=== PATIENT | male | born 1960 | race Hispanic/Latino ===

== ENCOUNTER → 2021-06-19 | Outpatient (CLI) | payer MEDICARE ==
[~2021-06-19] MED LIST: GLIP10TA9 PO
[2021-06-19 13:25] LABS: CREATININE 0.7 mg/dL (0.5-1.5); POTASSIUM 4.2 mmol/L (3.5-5.1)
== END | disposition home or self-care (01) ==
LOC: LAB 12:19
PROVIDERS: ATTEND Internal Medicine Cardiovascular Disease
DX: I10 Essential (primary) hypertension (principal)
CPT/HCPCS: 36415; 80048

== ENCOUNTER → 2021-06-21 | Outpatient (CLI) | payer MEDICARE ==
[~2021-06-21] MED LIST changes: +IOHEXOL-350 50ML VIAL IV ONE
== END | disposition home or self-care (01) ==
LOC: RAH 08:24
PROVIDERS: ATTEND Internal Medicine Cardiovascular Disease
DX: I70.203 Unspecified atherosclerosis of native arteries of extremities, bilateral legs (principal); I70.0 Atherosclerosis of aorta; I74.09 Other arterial embolism and thrombosis of abdominal aorta; I77.4 Celiac artery compression syndrome; I70.1 Atherosclerosis of renal artery; I74.5 Embolism and thrombosis of iliac artery; I70.8 Atherosclerosis of other arteries; K57.30 Diverticulosis of large intestine without perforation or abscess without bleeding
CPT/HCPCS: 75635; Q9967

== ENCOUNTER 2021-09-11 17:51 | Inpatient (IN) | payer MEDICARE ==
[~2021-09-11] VITALS: Ht 162.6 cm; Wt 69.9 kg
[~2021-09-11 17:51] MED LIST changes: +ATOR40TA71 PO; +CILO100T PO; +CLOP75TA32 PO; +GABA-529 PO; -GLIP10TA9 PO; +ICOS1CAP PO; +INSU100I26 SQ; -IOHEXOL-350 50ML VIAL IV ONE; +LISI5TAB21 PO; +METF-446 PO; +PIOG15TA66 PO; +SEMA1PEN3 SQ
[2021-09-11] MEDS ORDERED: 0.9% NACL 250ML IV SCH (19:00)
[2021-09-11] MEDS ORDERED: VANCOMYCIN PROTOCOL PER PHARMACY IV SCH (19:00)
[2021-09-11 19:01] LABS: BASOPHILS % (AUTO) 0.9 % (0.0-5.0); EOSINOPHILS % (AUTO) 6.6 % (0.0-8.0); HEMATOCRIT 41.9 % (42-54); LYMPHOCYTES % (AUTO) 20.9 % (21.0-51.0); MEAN CORPUSCULAR HEMOGLOBIN 26.3 pg (27.0-33.0); MEAN CORPUSCULAR HGB CONC 31.3 g/dL (32.0-36.0); MONOCYTES % (AUTO) 9.6 % (3.0-13.0); NEUTROPHILS % (AUTO) 61.8 % (40.0-77.0); PLATELET COUNT (AUTO) 341 K/uL (130-400); RED BLOOD CELL COUNT(AUTO) 4.99 MIL/uL (4.50-6.20); WHITE BLOOD COUNT (AUTO) 9.1 K/uL (4.8-10.8)
[2021-09-11 19:13] LABS: CREATININE 0.8 mg/dL (0.5-1.5); POTASSIUM 3.5 mmol/L (3.5-5.1)
[2021-09-11 19:17] LABS: ALBUMIN 3.6 g/dL (3.5-5.0); BILIRUBIN,TOTAL 0.4 mg/dL (0.2-1.0); MAGNESIUM 1.5 mg/dL (1.80-2.40); TOTAL PROTEIN, SERUM 8.3 g/dL (6.0-8.3)
[2021-09-11 19:46] LABS: INR 1.04 (0.85-1.15); PROTHROMBIN TIME 11.3 SEC (9.6-11.6)
[2021-09-11 19:48] LABS: PARTIAL THROMBOPLASTIN TIME 26.8 SEC (26.3-35.5)
[2021-09-11] MEDS ORDERED: ACETAMINOPHEN 325 MG TAB PO PRN ×2 (20:00)
[2021-09-11] MEDS ORDERED: ONDANSETRON 4MG INJ IVP PRN (20:00)
[2021-09-11] MEDS: VANCOMYCIN 1G/250ML KIT 250 ML IV SCH (20:28)
[2021-09-11] MEDS: MORPHINE 2 MG SYG IVP PRN (20:35)
[2021-09-11] MEDS: INSULIN HUMULIN R 100 UNIT/ML 3ML SQ SCH (21:00)
[2021-09-11] MEDS ORDERED: INSU100I26 SQ (21:20)
[2021-09-11] MEDS ORDERED: DAPA10TA PO (21:20)
[2021-09-11] MEDS ORDERED: TURM1TAB PO (21:20)
[2021-09-11] MEDS ORDERED: METO25TA6 PO (21:20)
[2021-09-11] MEDS ORDERED: CYAN250014 PO (21:20)
[2021-09-11] MEDS: ZOSYN 3.375GM +NS 50ML IV SCH (21:51)
[2021-09-11 23:30] VITALS: BP 153/82
[2021-09-12] MEDS: MORPHINE 2 MG SYG IVP PRN (01:02)
[2021-09-12] MEDS: ZOSYN 3.375GM +NS 50ML IV SCH ×3 (03:53→19:09)
[2021-09-12 04:00] VITALS: BP 146/74
[2021-09-12 05:33] LABS: BASOPHILS % (AUTO) 1.2 % (0.0-5.0); EOSINOPHILS % (AUTO) 8.7 % (0.0-8.0); HEMATOCRIT 37.7 % (42-54); LYMPHOCYTES % (AUTO) 21.7 % (21.0-51.0); MEAN CORPUSCULAR HEMOGLOBIN 26.6 pg (27.0-33.0); MEAN CORPUSCULAR HGB CONC 32.1 g/dL (32.0-36.0); MEAN CORPUSCULAR VOLUME 82.9 fL (79-99); MONOCYTES % (AUTO) 10.6 % (3.0-13.0); NEUTROPHILS % (AUTO) 57.7 % (40.0-77.0); PLATELET COUNT (AUTO) 313 K/uL (130-400); RED BLOOD CELL COUNT(AUTO) 4.55 MIL/uL (4.50-6.20); RED CELL DISTRIBUTION WIDTH 14.9 % (11.0-15.5); WHITE BLOOD COUNT (AUTO) 7.3 K/uL (4.8-10.8)
[2021-09-12 05:46] LABS: CREATININE 0.5 mg/dL (0.5-1.5); MAGNESIUM 1.5 mg/dL (1.80-2.40); POTASSIUM 3.4 mmol/L (3.5-5.1)
[2021-09-12] MEDS: INSULIN HUMULIN R 100 UNIT/ML 3ML SQ SCH ×4 (06:11→21:00)
[2021-09-12] MEDS ORDERED: 0.9% NACL 250ML 250 ML ONE ×2 (07:17→18:52)
[2021-09-12] MEDS: VANCOMYCIN 1G/250ML KIT 250 ML IV SCH ×2 (07:21→19:07)
[2021-09-12 13:02] VITALS: BP 171/63
[2021-09-12 19:12] VITALS: BP 171/63
[2021-09-12 19:14] VITALS: BP 136/67
[2021-09-12 20:00] VITALS: BP 149/77
[2021-09-13] VITALS (24 sets, daily range): BP systolic 89–201; BP diastolic 52–101
[2021-09-13] MEDS: ZOSYN 3.375GM +NS 50ML IV SCH ×3 (02:58→21:06)
[2021-09-13] MEDS: INSULIN HUMULIN R 100 UNIT/ML 3ML SQ SCH ×4 (06:29→20:28)
[2021-09-13] MEDS: VANCOMYCIN 1G/250ML KIT 250 ML IV SCH ×2 (07:16→19:41)
[2021-09-13] MEDS ORDERED: LIDOCAINE HCL 1% MDV 50ML VIAL ONE (13:14)
[2021-09-13] MEDS ORDERED: BUPIVACAINE/PF 0.25% 30ML VIAL IJ ONE (13:14)
[2021-09-13] MEDS ORDERED: PROPOFOL 1000 MG/100 ML 100 ML IV ONE (13:35)
[2021-09-13] MEDS ORDERED: FENTANYL CITRATE PF 50 MCG/1 ML 2ML VIAL ONE ×3 (13:48→14:59)
[2021-09-13] MEDS ORDERED: MEPERIDINE-PF 25 MG/ML SYG ONE (14:52)
[2021-09-13] MEDS ORDERED: METOPROLOL TARTRATE 1 MG/ML 5ML VIAL IV ONE (15:35)
[2021-09-13] MEDS ORDERED: HYDROMORPHONE 1 MG INJ ONE (15:40)
[2021-09-13] MEDS: MORPHINE 2 MG SYG IVP PRN (20:29)
[2021-09-13] MEDS: LISINOPRIL 5 MG TABLET PO SCH (21:06)
[2021-09-13] MEDS ORDERED: CLONIDINE HCL 0.1 MG TABLET ONE (21:28)
[2021-09-13] MEDS ORDERED: CLONIDINE HCL 0.1 MG TABLET PO PRN (21:30)
[2021-09-14] VITALS: BP 177/91
[2021-09-14] MEDS ORDERED: HYDRALAZINE 20MG/ML VIAL IV ONE
[2021-09-14] MEDS: MORPHINE 2 MG SYG IVP PRN ×4 (00:15→19:54)
[2021-09-14] MEDS: ZOSYN 3.375GM +NS 50ML IV SCH ×3 (02:57→20:18)
[2021-09-14 04:00] VITALS: BP 155/68
[2021-09-14] MEDS: VANCOMYCIN 1G/250ML KIT 250 ML IV SCH (06:48)
[2021-09-14 07:30] VITALS: BP 138/74
[2021-09-14] MEDS: INSULIN HUMULIN R 100 UNIT/ML 3ML SQ SCH ×4 (07:30→21:00)
[2021-09-14 11:00] VITALS: BP 152/73
[2021-09-14 16:00] VITALS: BP 145/66
[2021-09-14] MEDS: LISINOPRIL 5 MG TABLET PO SCH (20:18)
[2021-09-14 20:32] VITALS: BP 149/76
[2021-09-15] VITALS (7 sets, daily range): BP systolic 119–153; BP diastolic 65–81
[2021-09-15] MEDS: ZOSYN 3.375GM +NS 50ML IV SCH ×3 (03:29→18:04)
[2021-09-15 05:48] LABS: INR 1.02 (0.85-1.15); PROTHROMBIN TIME 11.1 SEC (9.6-11.6)
[2021-09-15] MEDS: INSULIN HUMULIN R 100 UNIT/ML 3ML SQ SCH ×4 (06:39→21:00)
[2021-09-15] MEDS: MORPHINE 2 MG SYG IVP PRN ×2 (11:05→21:04)
[2021-09-15] MEDS: LISINOPRIL 5 MG TABLET PO SCH (21:03)
[2021-09-16 00:24] VITALS: BP 159/72
[2021-09-16] MEDS: ZOSYN 3.375GM +NS 50ML IV SCH ×3 (03:38→20:28)
[2021-09-16 04:24] VITALS: BP 163/81
[2021-09-16] MEDS: INSULIN HUMULIN R 100 UNIT/ML 3ML SQ SCH ×4 (06:06→21:00)
[2021-09-16 08:00] VITALS: BP 188/77
[2021-09-16 11:53] VITALS: BP 160/68
[2021-09-16] MEDS: MORPHINE 2 MG SYG IVP PRN ×2 (13:59→22:07)
[2021-09-16 16:00] VITALS: BP 136/65
[2021-09-16 20:24] VITALS: BP 151/71
[2021-09-16] MEDS: LISINOPRIL 5 MG TABLET PO SCH (21:29)
[2021-09-17 00:24] VITALS: BP 160/80
[2021-09-17] MEDS: ZOSYN 3.375GM +NS 50ML IV SCH ×3 (04:02→19:17)
[2021-09-17 04:28] VITALS: BP 141/76
[2021-09-17 05:31] LABS: ALBUMIN 2.3 g/dL (3.5-5.0); BILIRUBIN,TOTAL 0.4 mg/dL (0.2-1.0); CREATININE 0.5 mg/dL (0.5-1.5); MAGNESIUM 1.5 mg/dL (1.80-2.40); TOTAL PROTEIN, SERUM 6.2 g/dL (6.0-8.3)
[2021-09-17 05:40] LABS: POTASSIUM 2.9 mmol/L (3.5-5.1)
[2021-09-17] MEDS ORDERED: POTASSIUM CHLORIDE 10% ELIXIR 20 MEQ/15 ML UDCUP PO PRN (06:00)
[2021-09-17] MEDS ORDERED: POTASSIUM CHLORIDE 20MEQ/100ML 100 ML IV PRN (06:00)
[2021-09-17] MEDS ORDERED: LIDOCAINE HCL-MPF 1% 2ML VIAL IV PRN (06:00)
[2021-09-17] MEDS: INSULIN HUMULIN R 100 UNIT/ML 3ML SQ SCH ×4 (06:34→20:46)
[2021-09-17 07:30] VITALS: BP 141/70
[2021-09-17 11:00] VITALS: BP 159/60
[2021-09-17] MEDS ORDERED: MAGNESIUM 4GM PREMIX 100ML 100 ML IV SCH (12:00)
[2021-09-17] MEDS: MAGNESIUM 2GM PREMIX 50ML 50 ML IV PRN (12:01)
[2021-09-17] MEDS: MORPHINE 2 MG SYG IVP PRN ×2 (13:48→22:46)
[2021-09-17 16:00] VITALS: BP 146/65
[2021-09-17 20:04] VITALS: BP 153/69
[2021-09-17] MEDS: LISINOPRIL 5 MG TABLET PO SCH (21:20)
[2021-09-18] VITALS (7 sets, daily range): BP systolic 142–176; BP diastolic 70–84
[2021-09-18] MEDS: ZOSYN 3.375GM +NS 50ML IV SCH ×3 (02:41→17:41)
[2021-09-18 04:45] LABS: HEMATOCRIT 28.5 % (42-54); MEAN CORPUSCULAR HGB CONC 31.6 g/dL (32.0-36.0); MEAN CORPUSCULAR VOLUME 82.4 fL (79-99); RED BLOOD CELL COUNT(AUTO) 3.46 MIL/uL (4.50-6.20); RED CELL DISTRIBUTION WIDTH 14.7 % (11.0-15.5); WHITE BLOOD COUNT (AUTO) 6.4 K/uL (4.8-10.8)
[2021-09-18 05:10] LABS: CREATININE 0.6 mg/dL (0.5-1.5); MAGNESIUM 1.6 mg/dL (1.80-2.40); POTASSIUM 3.1 mmol/L (3.5-5.1)
[2021-09-18] MEDS: INSULIN HUMULIN R 100 UNIT/ML 3ML SQ SCH ×4 (06:03→21:00)
[2021-09-18] MEDS: KCL 20 MEQ ERTAB PO PRN ×3 (06:41→17:42)
[2021-09-18] MEDS: MAGNESIUM 2GM PREMIX 50ML 50 ML IV PRN (06:43)
[2021-09-18] MEDS: MORPHINE 2 MG SYG IVP PRN ×2 (09:30→14:56)
[2021-09-18] MEDS ORDERED: MAGNESIUM 4GM PREMIX 100ML 100 ML IV SCH (15:30)
[2021-09-18] MEDS: LISINOPRIL 5 MG TABLET PO SCH (22:16)
[2021-09-19 03:10] VITALS: BP 161/84
[2021-09-19] MEDS: ZOSYN 3.375GM +NS 50ML IV SCH ×2 (04:37→10:22)
[2021-09-19 07:29] VITALS: BP 164/77
[2021-09-19] MEDS: INSULIN HUMULIN R 100 UNIT/ML 3ML SQ SCH ×3 (07:30→15:05)
[2021-09-19] MEDS: MORPHINE 2 MG SYG IVP PRN (10:23)
[2021-09-19 11:17] VITALS: BP 166/78
[2021-09-19 15:25] VITALS: BP 178/66
== END 2021-09-19 17:20 | DRG 504 ==
LOC: EDH 17:51 → EDHIP 17:52 → 3CH 23:14
PROVIDERS: ADMIT Internal Medicine Infectious Disease; ATTEND Internal Medicine Infectious Disease
PROC: 0QBN0ZZ Excision of Right Metatarsal, Open Approach (ICD-10-PCS; 2021-09-13)
PROC: 0QBN0ZZ Excision of Right Metatarsal, Open Approach (ICD-10-PCS; 2021-09-13)
PROC: 0QBN0ZZ Excision of Right Metatarsal, Open Approach (ICD-10-PCS; 2021-09-13)
PROC: 0QBN0ZZ Excision of Right Metatarsal, Open Approach (ICD-10-PCS; principal; 2021-09-13 13:34)
DX: T87.43 Infection of amputation stump, right lower extremity (principal); L03.90 Cellulitis, unspecified; M86.8X7 Other osteomyelitis, ankle and foot; E11.52 Type 2 diabetes mellitus with diabetic peripheral angiopathy with gangrene; I96 Gangrene, not elsewhere classified; E11.621 Type 2 diabetes mellitus with foot ulcer; E66.9 Obesity, unspecified; I25.10 Atherosclerotic heart disease of native coronary artery without angina pectoris; E78.5 Hyperlipidemia, unspecified; Z83.3 Family history of diabetes mellitus; E11.69 Type 2 diabetes mellitus with other specified complication; Y83.8 Other surgical procedures as the cause of abnormal reaction of the patient, or of later complication, without mention of misadventure at the time of the procedure; T87.81 Dehiscence of amputation stump; L97.519 Non-pressure chronic ulcer of other part of right foot with unspecified severity; Z68.26 Body mass index [BMI] 26.0-26.9, adult; I10 Essential (primary) hypertension; R53.81 Other malaise; Z89.439 Acquired absence of unspecified foot
CPT/HCPCS: 36415; 73630; 73718; 80048; 80053; 80202; 82948; 83735; 84132; 85025; 85027; 85610; 85730; 87070; 87076; 87077; 87186; 87635; 93005; 93925; 97039; G0378; J0360; J1170; J1815; J2175; J2405; J2543; J2704; J3010; J3370; J3475; J3480; J3490; J7050

== ENCOUNTER → 2023-09-09 | Outpatient (CLI) | payer OTHER, MEDICARE ==
[~2023-09-09] MED LIST changes: -CILO100T PO; +CILO100T3 PO; +CYAN250014 PO; +DAPA10TA PO; +METO25TA6 PO; +TURM1TAB PO
== END | disposition home or self-care (01) ==
LOC: SHCH 10:52
PROVIDERS: ATTEND Internal Medicine Cardiovascular Disease
DX: I65.23 Occlusion and stenosis of bilateral carotid arteries (principal); I77.9 Disorder of arteries and arterioles, unspecified
CPT/HCPCS: 93880

== ENCOUNTER 2024-11-04 11:52 | Inpatient (IN) | payer OTHER, MEDICAID ==
[~2024-11-04] VITALS: Ht 154.9 cm; Wt 84.1 kg
[2024-11-04 12:42] LABS: NUCLEATED RED BLOOD CELLS 0.0 % (0.0-0.19); PLATELET COUNT (AUTO) 243 K/uL (130-400); RED BLOOD CELL COUNT(AUTO) 4.95 MIL/uL (4.50-6.20); RED CELL DISTRIBUTION WIDTH 14.9 % (11.0-15.5); WHITE BLOOD COUNT (AUTO) 6.8 K/uL (4.8-10.8)
[2024-11-04 12:49] LABS: CREATININE 0.8 mg/dL (0.5-1.3); GLOMERULAR FILTR. RATE CALC 98.0 mL/min (>90); GLUCOSE,RANDOM 128.0 mg/dL (70-105); IMMATURE GRANULOCYTE ABSOLUTE 0.02 K/uL (0-1); SODIUM SERUM 139.0 mmol/L (136-145); UREA NITROGEN, BLOOD 10.0 mg/dL (7-18)
--- NOTE | 2024-11-04 12:57 | EKG ---
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
[2024-11-04] MEDS ORDERED: VANCOMYCIN PROTOCOL PER PHARMACY IV SCH (13:30)
[2024-11-04 13:35] LABS: LACTATE DEHYDROGENASE 160.0 U/L (81-234)
--- NOTE | 2024-11-04 13:38 | HMCIMG ---
FOOT COMP 3+VWS RT HISTORY: Foot COMPARISON: None TECHNIQUE: 3 images of the right foot were obtained. FINDINGS: Transmetatarsal amputation of the toes are noted. Evaluation for osteomyelitis is limited with radiographs. There is a calcaneal spur. There is no acute displaced fracture or dislocation. Degenerative changes are seen. IMPRESSION: 1. Findings as described above.
[2024-11-04] MEDS ORDERED: CILO100T3 PO (13:42)
[2024-11-04] MEDS ORDERED: ATOR40TA69 PO (13:42)
[2024-11-04] MEDS ORDERED: INSU100I26 SQ (13:42)
[2024-11-04] MEDS ORDERED: CLOP75TA32 PO (13:42)
[2024-11-04] MEDS ORDERED: PIOG15TA66 PO (13:42)
[2024-11-04] MEDS ORDERED: SEMA1PEN3 SQ (13:42)
[2024-11-04] MEDS ORDERED: GABA-1405 PO (13:42)
[2024-11-04] MEDS ORDERED: DAPA10TA PO (13:42)
[2024-11-04] MEDS ORDERED: METF-446 PO (13:42)
[2024-11-04] MEDS ORDERED: METO25TA6 PO (13:42)
[2024-11-04] MEDS ORDERED: CYAN-35 PO (13:42)
[2024-11-04] MEDS ORDERED: LISI5TAB21 PO (13:42)
[2024-11-04] MEDS ORDERED: VITAMIN PO (13:42)
[2024-11-04] MEDS: 0.9% NACL 500ML IV.SOLN 500 ML IV ONE (13:58)
[2024-11-04] MEDS: 0.9%NACL 1000ML 1,000 ML IV SCH (13:58)
[2024-11-04] MEDS: LISINOPRIL 5 MG TABLET PO SCH (13:58)
--- NOTE | 2024-11-04 14:57 | HMCIMG ---
CHEST 1VW HISTORY: Infection of the amputation stump COMPARISON: None FINDINGS: A frontal projection of the chest was obtained. No acute pulmonary infiltrates is seen. Poststernotomy changes are seen. The heart is enlarged. Degenerative changes of the thoracolumbar spine are present. All the lines and tubes are again seen in place. No evidence of aortic calcification is seen. IMPRESSION: 1. No acute pulmonary infiltrate is seen.
[2024-11-04] MEDS: VANCOMYCIN 1.5 GM/250 ML BAG 250 ML IV ONE (14:58)
--- NOTE | 2024-11-04 16:18 | NUR ---
DCP: HOME Pt currently lives with a roommate Madeline. Pt does not have any DME, home health, or provider services. Pt was able to complete ADLs prior to admission to hospital. PCP is Dr. Arnold Merritt and uses [facility] for any RX needs. At [place] pt will return home and friend can assist with transportation. Addendum: 11/04/24 at 1619 by RAFAEL VAZQUEZ SS Amended: Links added.
--- NOTE | 2024-11-04 16:23 | NUR ---
DR. REAGAN AT BEDSIDE
--- NOTE | 2024-11-04 17:13 | CONS ---
[facility] CARDIOLOGY CONSULTATION NOTE Date Patient Seen: Nov 04, 2024 Time of Visit: 16:56 Reason for Consultation: [PAD ] History of Present Illness: [64-year-old male patient that follows in Cardiology Clinic with , with a past medical history of Remote Anterior Wall Myocardial Infarction by EKG of Indeterminate Age, NSTEMI October 2015, Diabetes mellitus type 2 , Hypertension, D yslipidemia, Tobacco abuse history, Multivessel CAD with Preop Ejection Fraction of 60% Status Post- 3 v CABG ( ESTRELLA-LAD, SVG- d-Cx and OM, SVG- PDA ) in 2015 , PAD, Venous insufficiency, Carotid artery disease 50-69% OCHOA and LICA August 2023. 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 [Denies] alcohol consumption. [Denies] illicit drug use Home Meds: [ ] Current Meds: [ ] Review of Systems: CONST: [No fever, fatigue, or weight changes.] EYES: [No recent vision problems.] ENT: [No congestion, ear pain, or sore throat.] C/V: [No chest pain, palpitations, or edema.] RESP: [No cough, congestion, wheezing or shortness of breath.] GI: [No abdominal pain, nausea, vomiting, constipation, or diarrhea.] : [No incontinence or dysuria.] SKIN: [No rash.] NEURO: [No headache, focal numbness or weakness, dizziness, or seizures.] PSYCH: [No depression or anxiety.] HEME: [No abnormal bruising or bleeding.] LYMPH: [No swollen glands.] Physical Examination: GENERAL: [No acute distress.] HEAD: [Normal with no signs of head trauma.] EYES: [PERRLA, EOMI, conjunctiva and sclera normal.] ENT: [Hearing grossly intact, normal oropharynx.] NECK: [Supple without JVD. There is no tenderness, lymphadenopathy, or masses. No thyromegaly. Normal carotid upstrokes without bruits.] LUNGS: [Clear breath sounds bilaterally. There are right basilar rales one third of the way up the chest. No wheezes, or rhonchi.] HEART: [Normal rate and rhythm. Normal S1 and S2 without mumurs, gallop or rub.] VASC: [Peripheral pulses +2 bilaterally.] ABD: [Bowel sounds normal, soft, nontender, no masses, no organomegaly. No audible bruits.] : [Not examined] LYMPH: [No lymphadenopathy noted.] EXT: [Right TMA ] SKIN: [No rashes or lesions noted.] NEURO: [Awake, alert, and oriented x3. No focal sensory or strength deficits noted.] Vital Signs (last 8hr) Date Time Temp Pulse Resp B/P (MAP) Pulse Ox O2 Delivery O2 Flow Rate FiO2 11/04/24 14:15 68 18 161/60 98 Room Air* 0 21 11/04/24 11:53 98.2 93 16 188/75 97 Room Air 0 Laboratory: [ ] Hematology Labs: Test 11/04/24 13:16 11/04/24 12:35 Range/Units Erythrocyte Sedimentation Rate 33 H 0-20 MM/HR White Blood Count 6.8 4.8-10.8 K/uL Red Blood Count 4.95 4.50-6.20 MIL/uL Hemoglobin 14.0 14.0-18.0 g/dL Hematocrit 42.6 42-54 % Mean Corpuscular Volume 86.1 79-99 fL Mean Corpuscular Hemoglobin 28.3 27.0-33.0 pg Mean Corpuscular Hemoglobin Concent 32.9 32.0-36.0 g/dL Red Cell Distribution Width 14.9 11.0-15.5 % Platelet Count 243 130-400 K/uL Mean Platelet Volume 9.5 7.5-10.5 fL Immature Granulocyte % (Auto) 0.3 0-1 % Neutrophils (%) (Auto) 58.4 40.0-77.0 % Lymphocytes (%) (Auto) 20.5 L 21.0-51.0 % Monocytes (%) (Auto) 12.9 3.0-13.0 % Eosinophils (%) (Auto) 7.3 0.0-8.0 % Basophils (%) (Auto) 0.6 0.0-5.0 % Neutrophils # (Auto) 3.9 1.8-7.7 K/uL Lymphocytes # (Auto) 1.4 1.0-4.8 K/uL Monocytes # (Auto) 0.9 0.1-1.0 K/uL Eosinophils # (Auto) 0.49 0.00-0.70 K/uL Basophils # (Auto) 0.04 0.00-0.20 K/uL Absolute Immature Granulocyte (auto 0.02 0-1 K/uL Nucleated Red Blood Cells 0.0 0.0-0.19 % Chemistry Labs: Test 11/04/24 16:46 11/04/24 13:16 11/04/24 12:35 Range/Units Whole Blood Glucose 102 70-110 MG/DL Lactic Acid Level 2.5 0.8-2.5 mmol/L Lactate Dehydrogenase 160 81-234 U/L C-Reactive Protein, Quantitative 17.00 H 0.5-3.0 mg/L Procalcitonin < 0.05 L 0.05-0.5 ng/mL Sodium Level 139 136-145 mmol/L Potassium Level 3.9 3.5-5.1 mmol/L Chloride Level 102 101-111 mmol/L Carbon Dioxide Level 31 21-32 mmol/L Blood Urea Nitrogen 10 7-18 mg/dL Creatinine 0.8 0.5-1.3 mg/dL Glomerular Filtration Rate Calc 98 >90 mL/min Random Glucose 128 H 70-105 mg/dL Total Calcium 9.9 8.5-10.1 mg/dL Diagnostics / Radiology: [Copy/Paste Echos/Imaging Report here] Assessment: Diabetes mellitus type 2 Hypertension Dyslipidemia Tobacco abuse history Multivessel CAD Status Post- 3 v CABG ( ESTRELLA-LAD, SVG- d-Cx and OM, SVG- PDA ) in 2015 PAD Venous insufficiency Carotid artery disease 50-69% OCHOA and LICA August 2023[ ] Plan: [#PAD Presented to the emergency department today endorsing nonhealing wound of the right lower extremity On 08/12/2021, the patient underwent transmetatarsal amputation of the right foot. Subsequent to that on 08/10/2021, Dr. 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 MD TEZ Fulton JAMES R MD Nov 04, 2024 17:13
--- NOTE | 2024-11-04 17:15 | HMCIMG ---
US ARTERIAL BILAT LOW EXT DUPL HISTORY: Nonresolving wound of right lower extremity COMPARISON: 09/11/2021 TECHNIQUE: Bilateral lower extremity arterial Doppler ultrasound study was performed. FINDINGS: No flow is seen in the proximal and distal portions of the right superficial femoral artery suggesting occlusion. There is occlusion of the right femoral posterior tibial artery bypass graft. Abnormal monophasic arterial waveforms are positive for noted in the common femoral, deep femoral, superficial femoral, popliteal, posterior tibial and dorsalis pedal arteries. On the right, the peak systolic velocity of the common femoral artery is 63 cm/s, the proximal femoral artery is 0 cm/s, the mid femoral artery is 63 cm/s, the distal femoral artery is 0 cm/s, the proximal popliteal artery is 75 cm/s, the distal popliteal artery is 63 cm/s, the anterior tibial artery is 9 cm/s, the posterior tibial artery artery is 24 cm/s,and the dorsalis pedal artery is 11 cm/s. On the left, the peak systolic velocity of the common femoral artery is 156 cm/s, the proximal femoral artery is 119 cm/s, the mid femoral artery is 170 cm/s, the distal femoral artery is 15 cm/s, the proximal popliteal artery is 15 cm/s, the distal popliteal artery is 23 cm/s, the anterior tibial artery is 50 cm/s, the posterior tibial artery artery is 27 cm/s,and the dorsalis pedal artery is 46 cm/s. IMPRESSION: 1. Atherosclerotic disease. 2. No flow is seen in the proximal and distal portions of the right superficial femoral artery suggesting occlusion. There is occlusion of the right femoral posterior tibial artery bypass graft. Abnormal monophasic arterial waveforms are positive for noted in the common femoral, deep femoral, superficial femoral, popliteal, posterior tibial and dorsalis pedal arteries.
[2024-11-04 17:55] VITALS: BP 206/109; PULSE 102; RESP 18; TEMP 98.6; O2SAT 97
--- NOTE | 2024-11-04 18:06 | HMCIMG ---
MR FOOT RIGHT WO HISTORY: Ischemic infected right lateral TMA amputation stump ulcer COMPARISON: None TECHNIQUE: MRI of the right foot was performed utilizing multiple pulse sequences in axial, coronal and sagittal planes. Patient was not given contrast through intravenous route. FINDINGS: Transmetatarsal amputations of all the toes are noted. No abnormal signal intensity is seen to suggest osteomyelitis. There are motion artifacts degrading the image quality. Degenerative changes are seen. IMPRESSION: 1. Abnormal increased signal intensity is seen specifically of the proximal metatarsals stumps to suggest osteomyelitis.
--- NOTE | 2024-11-04 18:45 | HP ---
[facility] HISTORY AND PHYSICAL Date of Service: Nov 04, 2024 Time of Service: 18:32 HISTORY OF PRESENT ILLNESS: Date of service: 11/04/2024, 64-year-old male with underlying history of with underlying history of type 2 diabetes mellitus, peripheral vascular disease, hyperlipidemia, coronary artery disease, obesity, with prior history of right foot transmetatarsal amputation, who presented to the ER for further evaluation of nonhealing, painful diabetic ulceration ongoing for the past 7-10 days involving the lateral aspect of the t ransmetatarsal amputation site on the right. Patient states that his shoe rubbed the area and he developed a ulcer that was turned black. Patient has a previous history of coronary artery disease with prior history of coronary artery bypass grafting in 2015, patient also has a previous history of transmetatarsal amputation of the right foot in 2021. Patient has a history of significant peripheral arterial disease and has a previous history of left femoral to posterior tibial bypass grafting of the right lower extremity in 08/2021. Patient reports having mild pain involving the diabetic ulceration site. He has been having some mild drainage as well. Denies any fevers or chills otherwise. On presentation to the hospital, patient was noted to be afebrile with T-max of 98.2 F, heart rate of 93, blood pressure of 188/75. Labs on presentation showed WBC count of 6800, hemoglobin 14.0, platelet count of 332096. BMP remarkable for sodium of 139, potassium 3.9, BUN of 10, creatinine of 0.8. Patient will be admitted for further treatment and management of infected diabetic foot ulcer involving the lateral aspect of the right foot TMA site, consultation has been requested with Dr. Padron with Podiatry. We will obtain arterial ultrasound to assess vascular status, and patient's case was discussed with Dr. Mandel with Cardiology, we will obtain a CT angiogram with lower extremity runoff. Patient will receive broad-spectrum IV antibiotics, and will undergo MRI for further workup to rule out osteomyelitis. Patient will receive broad-spectrum antibiotics with IV vancomycin/cefepime. We will monitor this patient closely, anticipate hospitalization for greater than 72 hours. REVIEW OF SYSTEMS CONSTITUTIONAL: Denies fevers, chills, or night sweats. No unintentional weight loss reported. NEUROLOGICAL: Denies headache, amaurosis fugax, motor weakness, sensory deficit, vertigo/spinning sensation, gait abnormalities, or tremors. ENT: No hearing loss, otalgia, otorrhea, rhinitis, rhinorrhea, hoarseness, or sore throat. CARDIOVASCULAR: Denies any exertional angina, dyspnea on exertion, orthopnea, paroxysmal nocturnal dyspnea, palpitations, life-threatening arrhythmias, claudication. PULMONARY: Denies any shortness of breath, cough, phlegm/sputum, hemoptysis, pleuritic chest pain. SLEEP: Denies morning headaches, daytime somnolence or napping. Denies dif ficulty falling asleep, staying asleep, waking from sleep. Denies knowledge of snoring. GASTROINTESTINAL: Denies any type of dysphagia to either liquids or solids. Denies nausea, vomiting, pyrosis, early satiety, abdominal pain, diarrhea, constipation, or changes in stool consistency or caliber. Denies coffee-ground emesis, hematemesis, hematochezia, or melanotic stools. GENITOURINARY: Denies frequency, urgency, nocturia, hematuria or incontinence (Storage/Irritative symptoms.) Low urinary stream, straining to void, urinary intermittency or hesitancy, splitting of the voiding stream, terminal dribbling. ENDOCRINOLOGIC: Denies polyuria, polydipsia, polyphagia or heat/cold i ntolerances. HEMATOLOGIC: Denies thrombophilia/previous clots, or coagulopathy/bleeding disorders. ONCOLOGIC: Denies personal history of malignancy. DERMATOLOGIC: Nonhealing diabetic foot ulcer of the right foot TMA site PSYCHIATRIC: Denies any suicidal or homicidal ideation. Denies hallucinations. PAST MEDICAL HISTORY: 1. Diabetes mellitus. 2. Peripheral vascular disease. 3. Dyslipidemia. 4. Coronary artery disease. 5. Obesity. 6. History of bilateral lower extremity peripheral arterial disease PAST SURGICAL HISTORY: 1. Angiogram of lower extremities. 2. Right femoropopliteal bypass. 3. Right transmetatarsal amputation. ALLERGIES: No known drug allergy. CURRENT MEDICATIONS: Reviewed. SOCIAL HISTORY: , lives with . No alcohol, tobacco or illicit drug use. FAMILY HISTORY: Positive for diabetes mellitus. Home medications: Lipitor 40 mg daily, cilostazol 100 mg daily, Plavix 75 mg daily, vitamin B12 1000 mcg daily, Farxiga 10 mg daily, gabapentin 600 mg t.i.d., insulin glargine 10 units at bedtime, lisinopril 5 mg daily, metformin 1000 mg twice daily, metoprolol tartrate 25 mg daily, Actos 15 mg daily, Ozempic once a week, multivitamins Coded Allergies: Sulfa (Sulfonamide Antibiotics) (Unverified Allergy, Intermediate, RASH, 10/05/15) PHYSICAL EXAM GENERAL APPEARANCE: The patient is awake, alert, and oriented, in no acute cardiopulmonary distress. NEUROLOGICAL: Cranial nerves II-XII grossly intact. Motor is 5/5 in bilateral upper and lower extremities proximal to distal. No sensory deficits. HEENT: Face is symmetric. Pupils are equal and reactive. Extraocular movements are intact. NECK: Supple. No JVD. No thyromegaly. No submental, submandibular, pre- /postauricular, occipital or supraclavicular lymphadenopathy. CHEST: Normal chest expansion. No Telemetry. LUNGS: Absence of any rales, rhonchi or any wheezing. CARDIOVASCULAR: Regular. S1 and S2 normal. No appreciable rubs, murmurs or gallops. ABDOMEN: Soft, nontender, and nondistended. There is no rebound, voluntary guarding, or rigidity. : Deferred. No Jacobson. EXTREMITIES: Non-edematous and not cyanotic. on the lateral aspect of the right foot TMA site, there is 3 mm x 3 mm ulcer with surrounding erythema Vital Sign (Last 24 Hours) 11/04/24 17:00 Temp 98.2 Pulse 68 Resp 18 B/P (MAP) 159/74 Pulse Ox 97 O2 Delivery Room Air* O2 Flow Rate 0 FiO2 21 LABS: Laboratory: Test 11/04/24 17:19 11/04/24 16:46 11/04/24 13:16 11/04/24 12:35 Range/Units Lactic Acid Level 2.4 0.8-2.5 mmol/L Whole Blood Glucose 102 70-110 MG/DL Erythrocyte Sedimentation Rate 33 H 0-20 MM/HR Lactate Dehydrogenase 160 81-234 U/L C-Reactive Protein, Quantitative 17.00 H 0.5-3.0 mg/L Procalcitonin < 0.05 L 0.05-0.5 ng/mL White Blood Count 6.8 4.8-10.8 K/uL Red Blood Count 4.95 4.50-6.20 MIL/uL Hemoglobin 14.0 14.0-18.0 g/dL Hematocrit 42.6 42-54 % Mean Corpuscular Volume 86.1 79-99 fL Mean Corpuscular Hemoglobin 28.3 27.0-33.0 pg Mean Corpuscular Hemoglobin Concent 32.9 32.0-36.0 g/dL Red Cell Distribution Width 14.9 11.0-15.5 % Platelet Count 243 130-400 K/uL Mean Platelet Volume 9.5 7.5-10.5 fL Immature Granulocyte % (Auto) 0.3 0-1 % Neutrophils (%) (Auto) 58.4 40.0-77.0 % Lymphocytes (%) (Auto) 20.5 L 21.0-51.0 % Monocytes (%) (Auto) 12.9 3.0-13.0 % Eosinophils (%) (Auto) 7.3 0.0-8.0 % Basophils (%) (Auto) 0.6 0.0-5.0 % Neutrophils # (Auto) 3.9 1.8-7.7 K/uL Lymphocytes # (Auto) 1.4 1.0-4.8 K/uL Monocytes # (Auto) 0.9 0.1-1.0 K/uL Eosinophils # (Auto) 0.49 0.00-0.70 K/uL Basophils # (Auto) 0.04 0.00-0.20 K/uL Absolute Immature Granulocyte (auto 0.02 0-1 K/uL Nucleated Red Blood Cells 0.0 0.0-0.19 % Sodium Level 139 136-145 mmol/L Potassium Level 3.9 3.5-5.1 mmol/L Chloride Level 102 101-111 mmol/L Carbon Dioxide Level 31 21-32 mmol/L Blood Urea Nitrogen 10 7-18 mg/dL Creatinine 0.8 0.5-1.3 mg/dL Glomerular Filtration Rate Calc 98 >90 mL/min Random Glucose 128 H 70-105 mg/dL Total Calcium 9.9 8.5-10.1 mg/dL Current Medications Medications (Trade) Dose Ordered Sig/Teto Route PRN Reason Start Time Stop Time Status Last Admin Dose Admin Acetaminophen (TYLenol 325MG TAB) 650 mg Q6H PRN PO MILD PAIN (1-3) 11/04/24 13:30 12/04/24 13:29 Atorvastatin Calcium (LIPItor 40MG) 40 mg HS PO 6/26/25 21:00 12/04/24 20:59 Cefepime HCl (MAXipime 2 gm vial) 2 gm Q12H IVPB 11/04/24 13:30 11/14/24 13:29 11/04/24 13:57 2 GM Cilostazol (PLETal 100MG TAB) 100 mg DAILY PO 11/05/24 09:00 12/05/24 08:59 Clopidogrel Bisulfate (plaVIX 75MG) 75 mg DAILY PO 11/05/24 16:00 12/05/24 15:59 Enoxaparin Sodium (Lovenox) 30 mg DAILY SQ 11/05/24 09:00 12/05/24 08:59 Famotidine (Pepcid 20mg Vial) 20 mg BID IV 11/04/24 21:00 12/04/24 20:59 Gabapentin (NEURontin 300 MG CAP) 600 mg TID PO 11/04/24 21:00 12/04/24 20:59 Hydralazine HCl (APRESOLine 20MG INJ) 10 mg Q6H PRN IV ADMINISTER FOR SBP > 170 11/04/24 13:30 12/04/24 13:29 11/04/24 18:17 10 MG Insulin Glargine (LANtus 100 UNITS/ML 10 ML VIAL) 10 units HS SQ 11/04/24 21:00 12/04/24 20:59 Insulin Human Regular (humuLIN R 100 UNIT/ML 3ML) INSULIN SLIDING SCAL... ACHS SQ 11/04/24 16:30 12/04/24 16:29 Lisinopril (Prinivil 5mg) 5 mg Q24H PO 11/04/24 13:30 12/04/24 13:29 11/04/24 13:58 5 MG Metoprolol Tartrate (loprESSOR) 25 mg Q24H PO 11/04/24 13:30 12/04/24 13:29 11/04/24 13:58 25 MG Morphine Sulfate (morPHINE 2MG SYG) 2 mg Q6H PRN IVP SEVERE PAIN (7-10) 11/04/24 13:30 11/11/24 13:29 11/04/24 17:01 2 MG Ondansetron HCl (zoFRAN 4MG INJ) 4 mg Q6H PRN IVP NAUSEA/VOMITING 11/04/24 13:30 12/04/24 13:29 Pioglitazone HCl (Actos 15mg) 15 mg DAILY PO 11/05/24 09:00 12/05/24 08:59 Sodium Chloride 1,000 ml @ 50 mls/hr Q20H IV 11/04/24 13:30 12/04/24 13:29 11/04/24 13:58 50 MLS/HR Vancomycin HCl 250 ml @ 125 mls/hr Q12H IV 11/05/24 03:00 11/15/24 02:59 Vancomycin HCl (Vancomycin Protocol) 1 each AD IV 11/04/24 13:30 11/18/24 13:29 Vitamin B Complex (Vitamin B-12) 1,000 mcg DAILY PO 11/05/24 09:00 12/05/24 08:59 DIAGNOSTICS / RADIOLOGY: SERVICE 1206 REASON: ISCHEMIC INFECTED RIGHT LATERAL TMA AMPUTATION STUMP ULCER ORDERING PHYSICIAN: SAMRA PADRON DPM PROCEDURE: FT RT WO - MR FOOT RIGHT WO MR FOOT RIGHT WO HISTORY: Ischemic infected right lateral TMA amputation stump ulcer COMPARISON: None TECHNIQUE: MRI of the right foot was performed utilizing multiple pulse sequences in axial, coronal and sagittal planes. Patient was not given contrast through intravenous route. FINDINGS: Transmetatarsal amputations of all the toes are noted. No abnormal signal intensity is seen to suggest osteomyelitis. There are motion artifacts degrading the image quality. Degenerative changes are seen. IMPRESSION: 1. Abnormal increased signal intensity is seen specifically of the proximal metatarsals stumps to suggest osteomyelitis. DICTATED BY: AMANDA TUBBS MD DATE: 11/04/241755 ELECTRONICALLY SIGNED BY: AMANDA TUBBS MD DATE: 11/04/241805 ASSESSMENT: Nonhealing diabetic foot wound involving the lateral aspect of the right foot TMA site with concerns for acute osteomyelitis, POA History of severe peripheral arterial disease involving the right lower extremity with prior history of femoral to posterior tibial artery bypass surgery (2021), POA History of left lower extremity peripheral arterial disease, POA Underlying history of right foot transmetatarsal amputation in 2021, POA History of type 2 diabetes mellitus, POA Hypertension, POA Hyperlipidemia, POA Obesity, POA History of coronary artery disease with prior history of coronary artery bypass grafting in 2015, POA PLAN: Patient will be admitted to cardiac telemetry floor We will follow up wound cultures obtained from Dr. Padron[facility], we will start patient on broad-spectrum antibiotics with vancomycin/cefepime/Flagyl We will start patient on aspirin 81 mg daily, continue with home dose of Plavix 75 mg daily, and cilostazol 100 mg daily We will obtain CT angio with lower extremity runoff for further evaluation of femoral to posterior tibial artery bypass graft, preliminarily, the graft looks occluded, patient's case was discussed with Dr. mandel as well, appreciate recommendations Consultation with Dr. Padron will be requested with Podiatry for further wound care and treatment Consultation with Dr. Sy with Infectious Disease will be requested We will check ESR, CRP, we will obtain blood cultures Patient will be placed on sliding scale insulin a.c. and HS, we will keep patient on Lantus 10 units at bedtime We will hold metformin, Farxiga while inpatient, continue with home dose of Actos Lactic acid will be closely trended tonight, we will keep patient on gentle IV hydration with NS at 50 mL/hour Continue with home antihypertensives including lisinopril 5 mg daily, metoprolol tartrate 25 mg daily All labs will be repeated in the morning, we will see how patient progresses over the next 48-72 hours, patient may need vascular evaluation by cardiology, and prolonged course of IV antibiotics due to confirmed osteomyelitis on the MRI, we will have case management evaluate patient Date of service: 11/04/2024 Prognosis: Guarded Plan of care was discussed with patient and at bedside, Job Fernandez MD Advanced Care Planning: Which of the following were discussed: Hospice care: Yes __ No _X_ Therapeutic options: Yes _X_ No __ Advance directives: Yes _X_ No __ Other discussions: Discussed with who?: Patient Voluntary nature of this service was explained to the patient? Yes _x_ No __ Amount of time spent: 20 minutes JOB FERNANDEZ MD Nov 04, 2024 18:45
[2024-11-04 20:00] VITALS: BP 133/85; PULSE 108; RESP 18; TEMP 98; O2SAT 98
[2024-11-04] MEDS ORDERED: DEXTROSE 50%-WATER 50 ML DISP.SYRIN IV PRN (20:30)
[2024-11-04] MEDS ORDERED: GLUCAGON 1MG KIT 1 MG ML IM PRN (20:30)
[2024-11-04] MEDS: GABAPENTIN 300 MG CAPSULE PO SCH (21:09)
[2024-11-04] MEDS: FAMOTIDINE 20MG VIAL IV SCH (21:09)
[2024-11-04] MEDS ORDERED: IOHEXOL 350 MG/ML 100ML INFUS..BTL IV ONE (21:59)
[2024-11-04] MEDS ORDERED: IOHEXOL-350 50ML VIAL IV ONE (21:59)
[2024-11-05] VITALS: BP 153/83; PULSE 103; RESP 17; TEMP 97.9
[2024-11-05] MEDS: VANCOMYCIN 1G/250ML KIT 250 ML IV SCH (03:02)
[2024-11-05 04:00] VITALS: BP 146/75; PULSE 94; RESP 18; TEMP 98.1
[2024-11-05 08:00] VITALS: BP 138/83; PULSE 98; RESP 17; TEMP 98
--- NOTE | 2024-11-05 08:33 | CONS ---
HISTORY OF PRESENT ILLNESS: A 64-year-old diabetic, Latin-Kosovan male who was seen yesterday in my outpatient clinic, presented with a necrotic infected ulceration to the lateral aspect of his transmetatarsal amputation stump on the right with pain. The patient is currently afebrile 98.1, pulse 94, respirations 18, blood pressure 146/75. White count 6.8, H and H 14 and 42, platelets 243, sedimentation rate 33. BUN and creatinine 10 and 0.8, lactic acid 2.4. CTA of his abdominal aorta with runoff has been performed, results pending. Arterial Doppler studies on the right, no flow seen in the proximal and distal portion of the right SFA suggesting occlusion. There is occlusion of the right femoral, posterior tibial artery bypass graft, abnormal monophasic waveforms noted in the common femoral, deep femoral, superficial femoral, popliteal, posterior tibial, and dorsalis pedis arteries. MRI foot right, abnormal increased signal intensity seen in the proximal metatarsal stumps suggesting osteomyelitis. The patient was evaluated by the Cardiology Service. The patient has a history of myocardial infarction in 10/2015, diabetes, hypertension, dyslipidemia, tobacco abuse, peripheral vascular disease, venous insufficiency, carotid artery disease. The patient is being followed for problems list include type 2 diabetes, hypertension, dyslipidemia, tobacco abuse history, multivessel coronary artery disease status post coronary artery bypass grafting in 2016, peripheral vascular disease, venous insufficiency, right foot amputation stump, osteomyelitis, right foot lateral amputation stump, nonhealing ulcer, carotid artery disease. PHYSICAL EXAMINATION: The patient's examination today shows he has nonpalpable pedal pulses on the right. He has a well-healed transmetatarsal amputation on the right. He has a wound to the lateral aspect of the right transmetatarsal amputation that is measuring 30 x 30 mm with a fibrotic base. He has edema, erythema, and cellulitis. ASSESSMENT: Right foot amputation stump, osteomyelitis with ischemic nonhealing lateral foot ulcer with severe peripheral vascular disease with occlusion noted of the femoral bypass graft on the right, severe peripheral vascular disease per the arterial Doppler studies, CT of his abdominal aorta with runoff pending. The patient is being followed by the Cardiology Service. PLAN: Awaiting evaluation of his circulation status by the Cardiology Service. We will continue with the Plavix, cilostazol, vancomycin, metronidazole, and cefepime. We will continue with local wound care, the broad spectrum antibiotics with the vancomycin, cefepime and metronidazole. Continue to follow the patient closely while in-house, ____, heel protector at all times on the right in bed. Follow the patient closely while in-house. TID: [id number] RECEIPT: [id number]
[2024-11-05] MEDS: PIOGLITAZONE 15MG TAB PO SCH (08:57)
[2024-11-05] MEDS: CYANOCOBALAMIN (VITAMIN B-12) 1,000 MCG TABLET PO SCH (08:57)
[2024-11-05] MEDS: ENOXAPARIN SODIUM 30 MG/0.3 ML SQ SCH (08:58)
--- NOTE | 2024-11-05 09:16 | PN ---
[facility] PROGRESS NOTE Date of Service: Nov 05, 2024 Time of Service: 09:16 SUBJECTIVE: 11/05/2024: The patient was examined today with his roommate present at the bedside. He reports right foot pain localized to the ulcer site, accompanied by chills, but denies fever. * Foot MRI findings are suggestive of proximal metatarsal osteomyelitis. He is currently on Vancomycin, Cefepime, and Flagyl. * Arterial US (11/04/24) showed no flow in proximal and distal portion of right femoral artery, occlusion of right femoral posterior tibial artery bypass graft. CT Angio aorta with peripheral runoff (11/04/24) showed multiple short segment high-grade stenosis in right iliac artery with flow discontinuity, patent right posterior tibial artery, left anterior tibial and left renal artery. Occlusion of right anterior tibial and right peroneal artery and left posterior tibial artery. He continues on Aspirin, Plavix, Cilostazol and Atorvastatin. 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 Replace electrolytes per protocol. 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 Pending cardiology recommendations for further management of PAD. Further assessment and plan discussed below REVIEW OF SYSTEMS CONSTITUTIONAL: Chills, denies fevers, or night sweats. No unintentional weight loss reported. NEUROLOGICAL: Denies headache, amaurosis fugax, motor weakness, sensory deficit, vertigo/spinning sensation, gait abnormalities, or tremors. ENT: No hearing loss, otalgia, otorrhea, rhinitis, rhinorrhea, hoarseness, or sore throat. CARDIOVASCULAR: Denies any exertional angina, dyspnea on exertion, orthopnea, paroxysmal nocturnal dyspnea, palpitations, life-threatening arrhythmias, claudication. PULMONARY: Denies any shortness of breath, cough, phlegm/sputum, hemoptysis, pleuritic chest pain. SLEEP: Denies morning headaches, daytime somnolence or napping. Denies difficul ty falling asleep, staying asleep, waking from sleep. Denies knowledge of snoring. GASTROINTESTINAL: Denies any type of dysphagia to either liquids or solids. Denies nausea, vomiting, pyrosis, early satiety, abdominal pain, diarrhea, constipation, or changes in stool consistency or caliber. Denies coffee-ground emesis, hematemesis, hematochezia, or melanotic stools. GENITOURINARY: Denies frequency, urgency, nocturia, hematuria or incontinence (Storage/Irritative symptoms.) Low urinary stream, straining to void, urinary intermittency or hesitancy, splitting of the voiding stream, terminal dribbling. ENDOCRINOLOGIC: Denies polyuria, polydipsia, polyphagia or heat/cold intolerances. HEMATOLOGIC: Denies thrombophilia/previous clots, or coagulopathy/bleeding disorders. ONCOLOGIC: Denies personal history of malignancy. DERMATOLOGIC: Nonhealing diabetic foot ulcer of the right foot TMA site PSYCHIATRIC: Denies any suicidal or homicidal ideation. Denies hallucinations. PHYSICAL EXAM GENERAL APPEARANCE: The patient is awake, alert, and oriented, in no acute cardiopulmonary distress. NEUROLOGICAL: Cranial nerves II-XII grossly intact. Motor is 5/5 in bilateral upper and lower extremities proximal to distal. No sensory deficits. HEENT: Face is symmetric. Pupils are equal and reactive. Extraocular movements are intact. NECK: Supple. No JVD. No thyromegaly. No submental, submandibular, pre- /postauricular, occipital or supraclavicular lymphadenopathy. CHEST: Normal chest expansion. No Telemetry. LUNGS: Absence of any rales, rhonchi or any wheezing. CARDIOVASCULAR: Regular. S1 and S2 normal. No appreciable rubs, murmurs or gallops. ABDOMEN: Soft, nontender, and nondistended. There is no rebound, voluntary gu arding, or rigidity. : Deferred. No Jacobson. EXTREMITIES: Nonhealing diabetic foot ulcer of the right foot TMA site, dressing present, Non-edematous and not cyanotic. No clubbing. SKIN: No skin breakdown. Vital Signs (last 8hr) Date Time Temp Pulse Resp B/P (MAP) Pulse Ox O2 Delivery O2 Flow Rate FiO2 11/05/24 04:00 98.1 94 18 146/75 97 Room Air 11/05/24 04:00 98.1 94 18 146/75 97 Room Air LABS: Laboratory: Test 11/05/24 05:31 11/04/24 17:19 11/04/24 13:16 11/04/24 12:35 Range/Units Whole Blood Glucose 105 70-110 MG/DL Lactic Acid Level 2.4 0.8-2.5 mmol/L Erythrocyte Sedimentation Rate 33 H 0-20 MM/HR Lactate Dehydrogenase 160 81-234 U/L C-Reactive Protein, Quantitative 17.00 H 0.5-3.0 mg/L Procalcitonin < 0.05 L 0.05-0.5 ng/mL White Blood Count 6.8 4.8-10.8 K/uL Red Blood Count 4.95 4.50-6.20 MIL/uL Hemoglobin 14.0 14.0-18.0 g/dL Hematocrit 42.6 42-54 % Mean Corpuscular Volume 86.1 79-99 fL Mean Corpuscular Hemoglobin 28.3 27.0-33.0 pg Mean Corpuscular Hemoglobin Concent 32.9 32.0-36.0 g/dL Red Cell Distribution Width 14.9 11.0-15.5 % Platelet Count 243 130-400 K/uL Mean Platelet Volume 9.5 7.5-10.5 fL Immature Granulocyte % (Auto) 0.3 0-1 % Neutrophils (%) (Auto) 58.4 40.0-77.0 % Lymphocytes (%) (Auto) 20.5 L 21.0-51.0 % Monocytes (%) (Auto) 12.9 3.0-13.0 % Eosinophils (%) (Auto) 7.3 0.0-8.0 % Basophils (%) (Auto) 0.6 0.0-5.0 % Neutrophils # (Auto) 3.9 1.8-7.7 K/uL Lymphocytes # (Auto) 1.4 1.0-4.8 K/uL Monocytes # (Auto) 0.9 0.1-1.0 K/uL Eosinophils # (Auto) 0.49 0.00-0.70 K/uL Basophils # (Auto) 0.04 0.00-0.20 K/uL Absolute Immature Granulocyte (auto 0.02 0-1 K/uL Nucleated Red Blood Cells 0.0 0.0-0.19 % Sodium Level 139 136-145 mmol/L Potassium Level 3.9 3.5-5.1 mmol/L Chloride Level 102 101-111 mmol/L Carbon Dioxide Level 31 21-32 mmol/L Blood Urea Nitrogen 10 7-18 mg/dL Creatinine 0.8 0.5-1.3 mg/dL Glomerular Filtration Rate Calc 98 >90 mL/min Random Glucose 128 H 70-105 mg/dL Total Calcium 9.9 8.5-10.1 mg/dL Current Medications Medications (Trade) Dose Ordered Sig/Teto Route PRN Reason Start Time Stop Time Status Last Admin Dose Admin Acetaminophen (TYLenol 325MG TAB) 650 mg Q6H PRN PO MILD PAIN (1-3) 11/04/24 13:30 12/04/24 13:29 Atorvastatin Calcium (LIPItor 40MG) 40 mg HS PO 11/04/24 21:00 12/04/24 20:59 11/04/24 21:09 40 MG Cefepime HCl (MAXipime 2 gm vial) 2 gm Q12H IVPB 11/04/24 13:30 11/14/24 13:29 11/05/24 01:20 2 GM Cilostazol (PLETal 100MG TAB) 100 mg DAILY PO 11/05/24 09:00 12/05/24 08:59 11/05/24 08:57 100 MG Clopidogrel Bisulfate (plaVIX 75MG) 75 mg DAILY PO 11/05/24 16:00 12/05/24 15:59 Dextrose (D50w) 50 ml AD PRN IV HYPOGLYCEMIA PROTOCOL 11/04/24 20:30 12/04/24 20:29 Enoxaparin Sodium (Lovenox) 30 mg DAILY SQ 11/05/24 09:00 12/05/24 08:59 11/05/24 08:58 30 MG Famotidine (Pepcid 20mg Vial) 20 mg BID IV 11/04/24 21:00 12/04/24 20:59 11/05/24 08:57 20 MG Gabapentin (NEURontin 300 MG CAP) 600 mg TID PO 11/04/24 21:00 12/04/24 20:59 11/05/24 08:58 600 MG Glucagon (Glucagon 1mg Kit) 1 mg AD PRN IM HYPOGLYCEMIA PROTOCOL 11/04/24 20:30 12/04/24 20:29 Hydralazine HCl (APRESOLine 20MG INJ) 10 mg Q6H PRN IV ADMINISTER FOR SBP > 170 11/04/24 13:30 12/04/24 13:29 11/04/24 18:17 10 MG Insulin Glargine (LANtus 100 UNITS/ML 10 ML VIAL) 10 units HS SQ 11/04/24 21:00 12/04/24 20:59 11/04/24 21:32 10 UNITS Insulin Human Regular (humuLIN R 100 UNIT/ML 3ML) INSULIN SLIDING SCAL... ACHS SQ 11/04/24 16:30 12/04/24 16:29 Lisinopril (Prinivil 5mg) 5 mg Q24H PO 11/04/24 13:30 12/04/24 13:29 11/04/24 13:58 5 MG Metoprolol Tartrate (loprESSOR) 25 mg Q24H PO 11/04/24 13:30 12/04/24 13:29 11/04/24 13:58 25 MG Metronidazole/ Sodium Chloride 100 ml @ 100 mls/hr TID IVPB 11/04/24 21:00 11/14/24 20:59 11/05/24 08:57 100 MLS/HR Morphine Sulfate (morPHINE 2MG SYG) 2 mg Q6H PRN IVP SEVERE PAIN (7-10) 11/04/24 13:30 11/11/24 13:29 11/04/24 17:01 2 MG Ondansetron HCl (zoFRAN 4MG INJ) 4 mg Q6H PRN IVP NAUSEA/VOMITING 11/04/24 13:30 12/04/24 13:29 Pioglitazone HCl (Actos 15mg) 15 mg DAILY PO 11/05/24 09:00 12/05/24 08:59 11/05/24 08:57 15 MG Sodium Chloride 1,000 ml @ 50 mls/hr Q20H IV 11/04/24 13:30 12/04/24 13:29 11/04/24 13:58 50 MLS/HR Vancomycin HCl 250 ml @ 125 mls/hr Q12H IV 11/05/24 03:00 11/15/24 02:59 11/05/24 03:02 125 MLS/HR Vancomycin HCl (Vancomycin Protocol) 1 each AD IV 11/04/24 13:30 11/18/24 13:29 Vitamin B Complex (Vitamin B-12) 1,000 mcg DAILY PO 11/05/24 09:00 12/05/24 08:59 11/05/24 08:57 1,000 [facility] / RADIOLOGY: [place] 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 Patient was not given contrast through intravenous route. Oral contrast was not given. FINDINGS: No pleural effusion is seen bilaterally. There is no evidence of parenchymal disease or pulmonary nodule of the visualized lower lungs. Degenerative changes of the thoracolumbar spine are present. The heart is not enlarged. The liver, spleen, adrenal glands and pancreas are unremarkable. There is no evidence of hydronephrosis bilaterally. No evidence of renal stone is seen. Fecal material is seen in the colon. There are normal size retroperitoneal and mesenteric lymph nodes. No ascites is seen. Atherosclerotic changes are present. There is diffuse atherosclerotic disease. No evidence of abdominal aortic aneurysm is seen. The celiac, superior mesenteric and bilateral renal arteries are grossly patent. The visualized portion of the left iliac and femoral arterial systems are also grossly patent. Multiple short segment high-grade stenosis are noted in the right iliac artery with flow discontinuity. Flow in the right femoral posterior tibial stent cannot be fully evaluated. However, right posterior tibial artery is patent. The left anterior tibial, left renal arteries are grossly patent. There appears be occlusion of the right anterior tibial and right peroneal artery and left posterior tibial artery. Pelvic sidewalls are symmetric bilaterally. Bladder is well distended without wall thickening. IMPRESSION: 1. Multiple short segment high-grade stenosis are noted in the right iliac artery with flow discontinuity. Flow in the right femoral posterior tibial stent cannot be fully evaluated. However, right posterior tibial artery is patent. The left anterior tibial, left renal arteries are grossly patent. There appears be occlusion of the right anterior tibial and right peroneal artery and left posterior tibial artery. CT was performed with one or more following dose reduction techniques: automated exposure control, adjustment of the mA and kv according to patient's size, or use of a iterative reconstruction technique. DICTATED BY: AMANDA TUBBS MD DATE: 11/05/241530 ELECTRONICALLY SIGNED BY: AMANDA TUBBS MD DATE: 11/05/241537 [place] [address] [place] [id number] IMAGING REPORT Signed PATIENT: ENMANUEL TURNER MR#: [id number] : 1960 SEX: M AGE: 64 LOCATION: [facility] ORDER 131 STATUS: ADM IN REPORT#: [id number] SERVICE 1310 REASON: non resolving wound of RLE, hx of prior bypass, hx of stent to LLE ORDERING PHYSICIAN: KRISTIAN CHURCH MD PROCEDURE: ART B LE - US ARTERIAL BILAT LOW EXT DUPL US ARTERIAL BILAT LOW EXT DUPL HISTORY: Nonresolving wound of right lower extremity COMPARISON: 09/11/2021 TECHNIQUE: Bilateral lower extremity arterial Doppler ultrasound study was performed. FINDINGS: No flow is seen in the proximal and distal portions of the right superficial femoral artery suggesting occlusion. There is occlusion of the right femoral posterior tibial artery bypass graft. Abnormal monophasic arterial waveforms are positive for noted in the common femoral, deep femoral, superficial femoral, popliteal, posterior tibial and dorsalis pedal arteries. On the right, the peak systolic velocity of the common femoral artery is 63 cm/s, the proximal femoral artery is 0 cm/s, the mid femoral artery is 63 cm/s, the distal femoral artery is 0 cm/s, the proximal popliteal artery is 75 cm/s, the distal popliteal artery is 63 cm/s, the anterior tibial artery is 9 cm/s, the posterior tibial artery artery is 24 cm/s,and the dorsalis pedal artery is 11 cm/s. On the left, the peak systolic velocity of the common femoral artery is 156 cm/s, the proximal femoral artery is 119 cm/s, the mid femoral artery is 170 cm/s, the distal femoral artery is 15 cm/s, the proximal popliteal artery is 15 cm/s, the distal popliteal artery is 23 cm/s, the anterior tibial artery is 50 cm/s, the posterior tibial artery artery is 27 cm/s,and the dorsalis pedal artery is 46 cm/s. IMPRESSION: 1. Atherosclerotic disease. 2. No flow is seen in the proximal and distal portions of the right superficial femoral artery suggesting occlusion. There is occlusion of the right femoral posterior tibial artery bypass graft. Abnormal monophasic arterial waveforms are positive for noted in the common femoral, deep femoral, superficial femoral, popliteal, posterior tibial and dorsalis pedal arteries. DICTATED BY: AMANDA TUBBS MD DATE: 11/04/241710 ELECTRONICALLY SIGNED BY: AMANDA TUBBS MD DATE: 11/04/241714 [place] [address] [address] IMAGING REPORT Signed PATIENT: ENMANUEL TURNER MR#: [id number] : 1960 SEX: M AGE: 64 LOCATION: [facility] ORDER 1224 STATUS: REG REPORT#: [id number] SERVICE 1206 REASON: ISCHEMIC INFECTED RIGHT LATERAL TMA AMPUTATION STUMP ULCER ORDERING PHYSICIAN: SAMRA PADRON DPM PROCEDURE: FT 3VW RT - FOOT COMP 3+VWS RT FOOT COMP 3+VWS RT HISTORY: Foot COMPARISON: None TECHNIQUE: 3 images of the right foot were obtained. FINDINGS: Transmetatarsal amputation of the toes are noted. Evaluation for osteomyelitis is limited with radiographs. There is a calcaneal spur. There is no acute displaced fracture or dislocation. Degenerative changes are seen. IMPRESSION: 1. Findings as described above. DICTATED BY: AMANDA TUBBS MD DATE: 11/04/241334 ELECTRONICALLY SIGNED BY: AMANDA TUBBS MD DATE: 11/04/241337 [place] [address] [address] IMAGING REPORT Signed PATIENT: ENMANUEL TURNER MR#: [id number] : 1960 SEX: M AGE: 64 LOCATION: [facility] ORDER STATUS: ADM IN REPORT#: [id number] SERVICE 120 REASON: ISCHEMIC INFECTED RIGHT LATERAL TMA AMPUTATION STUMP ULCER ORDERING PHYSICIAN: SAMRA PADRON DPM PROCEDURE: FT RT WO - MR FOOT RIGHT WO MR FOOT RIGHT WO HISTORY: Ischemic infected right lateral TMA amputation stump ulcer COMPARISON: None TECHNIQUE: MRI of the right foot was performed utilizing multiple pulse sequences in axial, coronal and sagittal planes. Patient was not given contrast through intravenous route. FINDINGS: Transmetatarsal amputations of all the toes are noted. No abnormal signal intensity is seen to suggest osteomyelitis. There are motion artifacts degrading the image quality. Degenerative changes are seen. IMPRESSION: 1. Abnormal increased signal intensity is seen specifically of the proximal metatarsals stumps to suggest osteomyelitis. DICTATED BY: AMANDA TUBBS MD DATE: 11/04/241755 ELECTRONICALLY SIGNED BY: AMANDA TUBBS MD DATE: 11/04/24 [address] [place] [address] IMAGING REPORT Signed PATIENT: ENMANUEL TURNER MR#: [id number] : 1960 SEX: M AGE: 64 LOCATION: [facility] ORDER STATUS: [facility] REPORT#: [id number] SERVICE 1206 REASON: ISCHEMIC INFECTED RIGHT LATERAL TMA AMPUTATION STUMP ULCER ORDERING PHYSICIAN: SAMRA PARDON DPM PROCEDURE: CXR1VW - CHEST 1VW CHEST 1VW HISTORY: Infection of the amputation stump COMPARISON: None FINDINGS: A frontal projection of the chest was obtained. No acute pulmonary infiltrates is seen. Poststernotomy changes are seen. The heart is enlarged. Degenerative changes of the thoracolumbar spine are present. All the lines and tubes are again seen in place. No evidence of aortic calcification is seen. IMPRESSION: 1. No acute pulmonary infiltrate is seen. DICTATED BY: AMANDA TUBBS MD DATE: 06/26/25 1452 ELECTRONICALLY SIGNED BY: AMANDA TUBBS MD DATE: 11/04/241456 RUN DATE: 11/05/24 [facility] [address] RUN TIME: [id number] [address], [place] [address] Department of Laboratories CLIA # [id number] Quality Assurance Coach: Rafy Ayala DO Specimen Report PATIENT: ENMANUEL TURNER ACCT: [id number] LOC: [facility] U: [id number] AGE/SX: 64/M ROOM: [facility] RE11/04/[address]: KRISTIAN CHURCH MD : 1960 BED: 1 DIS: STATUS: ADM IN TLOC: SPEC: [id number] ZAYDA: 11/04/24-6 STATUS: RES REQ: [id number] RECD: 11/04/24-[address]: KRISTIAN CHURCH MD SOURCE: BLOOD ENTR: 11/04/24-[address]: BILLY WEBER [facility] SAMRA PADRON DPM, JAMES R MD TORRES, FRANCISCO ORDERED: BLOOD CULTURE COMMENTS: What is the Source? BLOOD Procedure Result Awa Date-Time BLOOD CULT Preliminary 11/05/24-1323 NO GROWTH AFTER 24 HOURS ASSESSMENT: Nonhealing diabetic foot wound involving the lateral aspect of the right foot TMA site with acute osteomyelitis, POA History of severe peripheral arterial disease involving the right lower extremity with prior history of femoral to popliteal artery bypass surgery on 08/10/2021, POA History of left lower extremity peripheral arterial disease, POA Underlying history of right foot transmetatarsal amputation in 2021, POA Hypokalemia Hypomagnesemia History of type 2 diabetes mellitus, POA Hypertension, POA Hyperlipidemia, POA Obesity, POA History of coronary artery disease with prior history of coronary artery bypass grafting in 2016, POA H/o tobacco abuse POA Carotid artery disease, 50-69% OCHOA and LICA, August 2023 PLAN: The patient remains admitted on the medical surgical floor under telemetry monitoring. Nonhealing diabetic foot wound involving the lateral aspect of the right foot TMA site with acute osteomyelitis, POA Underlying history of right foot transmetatarsal amputation in 2021, POA * Continue on broad-spectrum antibiotics with vancomycin/cefepime/Flagyl * Continue with gentle hydration, 0.9%Nacl 50 cc/hour and reevaluate tomorrow * Follow up wound cultures obtained from [facility]. His recommendations are to continue IV antibiotic therapy and provide local wound care. * Wound cultures obtained during this hospitalization are pending, follow up with the results when available * ESR 33, CRP 17.00, pending blood culture results. * PICC line will be placed for detention IV antibiotics. * Follow-up with the infectious disease recommendations. History of severe peripheral arterial disease involving the right lower extremity with prior history of femoral to popliteal artery bypass surgery on 08/10/2021, POA History of left lower extremity peripheral arterial disease, POA * Arterial US (11/04/24) showed no flow in proximal and distal portion of right femoral artery, occlusion of right femoral posterior tibial artery bypass graft. CT Angio aorta with peripheral runoff (11/04/24) showed multiple short segment high-grade stenosis in right iliac artery with flow discontinuity, patent right posterior tibial artery, left anterior tibial and left renal artery. Occlusion of right anterior tibial and right peroneal artery and left posterior tibial artery. * Continue with the following: aspirin 81 mg daily, Plavix 75 mg daily, and cilostazol 100 mg daily. * Follow up with the farm implement mechanic recommendations. Hypokalemia * K level is 2.9, replace per protocol. * Monitor for symptoms of palpitation, paresthesias or paralysis, EKG if needed * Repeat K at 1600 today Hypomagnesemia * Recent MG is 1.5, replace per protocol * Repeat in AM History of type 2 diabetes mellitus, POA * Recent blood glucose level is 105, Continue on sliding scale insulin a.c. and HS, and Lantus 10 units at bedtime * Continue with home dose of Actos * Hypoglycemia protocol Hypertension, POA * Due to ongoing hypertensive episodes, the lisinopril dose was increased to 10 mg daily. * Continue with metoprolol tartrate 25 mg daily * Discontinue PRN Hydralazine Hyperlipidemia, POA * Continue with Atorvastatin 40 mg daily. DVT Prophylaxis: Continue with Lovenox 30 mg subcue daily GI Prophylaxis: Continue with Famotidine 20 mg IV BID. PICC line will be placed, he will require IV antibiotics post discharge. Case management assistance will be appreciated. Pending cardiology recommendations for further management of PAD. AM Labs: CBC, CMP, Lactic Acid, Magnesium Further orders per hospitalization course. ATTESTATION BY PHYSICIAN I have seen and examined the patient. I reviewed the documentation, medical de cision making, and treatment plan as noted by the resident provider above. I agree with the findings and plan of care. Amadou Cruz MD, MANALI MD Nov 05, 2024 09:16
[2024-11-05 11:40] LABS: IMMATURE GRANULOCYTE ABSOLUTE 0.03 K/uL (0-1); NUCLEATED RED BLOOD CELLS 0.0 % (0.0-0.19); PLATELET COUNT (AUTO) 245 K/uL (130-400); RED BLOOD CELL COUNT(AUTO) 4.88 MIL/uL (4.50-6.20); RED CELL DISTRIBUTION WIDTH 14.6 % (11.0-15.5); WHITE BLOOD COUNT (AUTO) 8.0 K/uL (4.8-10.8)
[2024-11-05 11:57] LABS: ASPARTATE AMINOTRANSFERASE 15.0 U/L (10-37); CREATININE 0.7 mg/dL (0.5-1.3); GLOMERULAR FILTR. RATE CALC 102.0 mL/min (>90); GLUCOSE,RANDOM 111.0 mg/dL (70-105); SODIUM SERUM 138.0 mmol/L (136-145); TOTAL PROTEIN, SERUM 7.3 g/dL (6.0-8.3); UREA NITROGEN, BLOOD 7.0 mg/dL (7-18)
[2024-11-05 12:00] VITALS: BP 142/79; PULSE 99; RESP 17; TEMP 98
[2024-11-05] MEDS ORDERED: PoTASSium chl 10% ELIXIR 20MEQ 20 MEQ/15 ML UDCUP PO PRN (12:30)
[2024-11-05] MEDS: PoTASSium chloRIDE 20MEQ ER 20 MEQ ERTAB PO PRN (13:18)
[2024-11-05] MEDS: LISINOPRIL 10 MG TABLET PO SCH (13:21)
[2024-11-05] MEDS: MAGNESIUM 2GM PREMIX 50ML 50 ML IV PRN (15:19)
--- NOTE | 2024-11-05 15:38 | HMCIMG ---
CT ANGIO ABD AORTA W RUNOFF HISTORY: Occluded right femoral to posterior tibial artery bypass graft COMPARISON: Ultrasound from November 04, 2014 TECHNIQUE: CT angiography of the abdomen and pelvis was obtained using angiographic technique with maximum intensity projection reconstruction images. Patient was not given contrast through intravenous route. Oral contrast was not given. FINDINGS: No pleural effusion is seen bilaterally. There is no evidence of parenchymal disease or pulmonary nodule of the visualized lower lungs. Degenerative changes of the thoracolumbar spine are present. The heart is not enlarged. The liver, spleen, adrenal glands and pancreas are unremarkable. There is no evidence of hydronephrosis bilaterally. No evidence of renal stone is seen. Fecal material is seen in the colon. There are normal size retroperitoneal and mesenteric lymph nodes. No ascites is seen. Atherosclerotic changes are present. There is diffuse atherosclerotic disease. No evidence of abdominal aortic aneurysm is seen. The celiac, superior mesenteric and bilateral renal arteries are grossly patent. The visualized portion of the left iliac and femoral arterial systems are also grossly patent. Multiple short segment high-grade stenosis are noted in the right iliac artery with flow discontinuity. Flow in the right femoral posterior tibial stent cannot be fully evaluated. However, right posterior tibial artery is patent. The left anterior tibial, left renal arteries are grossly patent. There appears be occlusion of the right anterior tibial and right peroneal artery and left posterior tibial artery. Pelvic sidewalls are symmetric bilaterally. Bladder is well distended without wall thickening. IMPRESSION: 1. Multiple short segment high-grade stenosis are noted in the right iliac artery with flow discontinuity. Flow in the right femoral posterior tibial stent cannot be fully evaluated. However, right posterior tibial artery is patent. The left anterior tibial, left renal arteries are grossly patent. There appears be occlusion of the right anterior tibial and right peroneal artery and left posterior tibial artery. CT was performed with one or more following dose reduction techniques: automated exposure control, adjustment of the mA and kv according to patient's size, or use of a iterative reconstruction technique.
[2024-11-05 16:00] VITALS: BP 139/89; PULSE 94; RESP 17; TEMP 98
[2024-11-05] MEDS: ASPIRIN 81 MG EC TAB PO SCH (16:16)
[2024-11-05 17:40] LABS: INR 0.97 (0.85-1.15)
[2024-11-05 20:00] VITALS: BP 169/67; PULSE 90; RESP 20; TEMP 97.7
[2024-11-06] VITALS: BP 133/87; PULSE 94; RESP 20; TEMP 97.4
--- NOTE | 2024-11-06 02:02 | HMCIMG ---
EXAM: CR Chest, 1 view CLINICAL HISTORY: PICC line placement. COMPARISON: Chest radiograph dated 11/04/2024. FINDINGS: The right side PICC line tip overlies the mid SVC. The lungs show no infiltrates or other acute findings. No pleural effusion or pneumothorax. The cardiomediastinal silhouette is within normal limits. Status poststernotomy. Mild atherosclerotic aorta. No acute osseous abnormality. IMPRESSION: No acute cardiopulmonary process is evident. Interval placement of a right sided PICC line that terminates around the mid SVC. /[place]
[2024-11-06 04:00] VITALS: BP 140/79; PULSE 92; RESP 20; TEMP 98
--- NOTE | 2024-11-06 04:59 | CONS ---
INFECTIOUS DISEASE CONSULTATION DATE OF SERVICE: 11/05/2024 REQUESTING PHYSICIAN: Dr. Harris. REASON FOR CONSULTATION: Right foot stump osteomyelitis. HISTORY OF PRESENT ILLNESS: A 64-year-old male who came with obesity, diabetes mellitus, peripheral vascular disease, dyslipidemia. The patient was admitted with foot ulcer. The patient noticed ulcer to the lateral aspect of the right foot TMA stump. No history of trauma. Denies fever or chills. MRI has been done showed osteomyelitis involving metatarsal bone occlusion. The patient is being evaluated by Cardiology for peripheral vascular disease. No dysuria, urgency or urinary frequency. PAST MEDICAL HISTORY: * Diabetes mellitus. * Peripheral vascular disease. * Dyslipidemia. * Coronary artery disease. * Obesity. PAST SURGICAL HISTORY: * Right foot TMA. * CABG. * Right lower extremity popliteal bypass. * Cardiac catheterization. ALLERGIES: SULFA. CURRENT MEDICATIONS: Reviewed. SOCIAL HISTORY: No alcohol, tobacco or illicit drug use. FAMILY HISTORY: Positive for diabetes mellitus. REVIEW OF SYSTEMS: CONSTITUTIONAL: No fevers, chills. No weight loss or night sweats. EYES: No eye pain. No photophobia or diplopia. HENT: No sore throat. No rhinorrhea. NECK: No neck pain or neck swelling. RESPIRATORY: No cough. No hemoptysis or pleuritic pain. CARDIOVASCULAR: No chest pain. No palpitation or orthopnea. GASTROINTESTINAL: Denies nausea, vomiting or abdominal pain. GENITOURINARY: No dysuria, urgency or urinary frequency. CENTRAL NERVOUS SYSTEM: No headache, dizziness, or slurred speech. PSYCHIATRY: No depression, no suicidal ideation. MUSCULOSKELETAL: Positive for right foot stump present. PHYSICAL EXAMINATION: GENERAL: Elderly male. VITAL SIGNS: Temperature 98.1, pulse 90, respirations 17, BP 138/82. EYES: No icterus. Pupils equal and reactive. HENT: No oral thrush seen. Moist oral mucosa. NECK: Supple. No JVD or thyromegaly. LUNGS: Good air entry. No rales, no rhonchi. CARDIOVASCULAR: S1 and S2 regular. No murmur heard. ABDOMEN: Obese, soft, nontender. Bowel sounds are present. CENTRAL NERVOUS SYSTEM: Awake, alert, oriented x3. No focal deficits. SKIN: No rashes, no itchiness. LYMPHATIC: There is right inguinal lymphadenopathy. BACK: No deformity. No pressure ulcer. EXTREMITIES: Ulcer involving right foot stump drainage. HEMATOLOGY: No bleeding or petechial lesion seen. LABORATORY DATA: Sodium 138, potassium 2.9, BUN 7, creatinine 0.7. WBC 8.0, hemoglobin 13.7, platelet 245. RADIOLOGY: Right foot MRI shows metatarsal wound. Arterial Doppler showed no flow. ASSESSMENT: A 64-year-old male presented with right foot ulcer. CURRENT PROBLEMS: Include: * Right foot stump present. * Right foot osteomyelitis. * Peripheral vascular disease. * Obesity. * Hypokalemia. * Diabetes mellitus. PLAN: * Continue present antibiotic regimen. * Continue wound care. * Continue DVT prophylaxis. * Follow up cultures. * Correct hypokalemia. * Continue antidiabetic. * Continue . * Continue antiplatelet. * The patient will be followed up closely. Thank you for allowing me to participate in the care of this patient. TID: [id number] RECEIPT: [id number]
[2024-11-06 05:15] LABS: IMMATURE GRANULOCYTE ABSOLUTE 0.02 K/uL (0-1); NUCLEATED RED BLOOD CELLS 0.0 % (0.0-0.19); PLATELET COUNT (AUTO) 235 K/uL (130-400); RED BLOOD CELL COUNT(AUTO) 4.86 MIL/uL (4.50-6.20); RED CELL DISTRIBUTION WIDTH 14.8 % (11.0-15.5); WHITE BLOOD COUNT (AUTO) 6.7 K/uL (4.8-10.8)
[2024-11-06 05:55] LABS: ASPARTATE AMINOTRANSFERASE 19.0 U/L (10-37); CREATININE 0.9 mg/dL (0.5-1.3); GLOMERULAR FILTR. RATE CALC 95.0 mL/min (>90); GLUCOSE,RANDOM 102.0 mg/dL (70-105); SODIUM SERUM 144.0 mmol/L (136-145); TOTAL PROTEIN, SERUM 7.1 g/dL (6.0-8.3); UREA NITROGEN, BLOOD 7.0 mg/dL (7-18)
[2024-11-06 08:00] VITALS: BP 146/76; PULSE 98; RESP 17; TEMP 97.6; O2SAT 96
[2024-11-06 12:00] VITALS: BP 163/69; PULSE 94; RESP 17; TEMP 98.3
--- NOTE | 2024-11-06 12:27 | PN ---
SUBJECTIVE: The patient is a pleasant 64-year-old diabetic male. He is followed for peripheral vascular disease affecting the right lower extremity. He had a CTA of his abdominal aorta with runoff and the results have shown multiple short segment high-grade stenosis noted in the right iliac artery with flow discontinuity. Flow in the right femoral posterior tibial stent cannot be fully evaluated; however, right posterior tibial artery is patent. The right anterior tibial and right peroneal artery appear to be occluded. The patient is being followed by the Cardiology Service. He has had an MRI that showed no evidence of osteomyelitis to the metatarsal stumps. He has had arterial Doppler studies on the right, abnormal, suggesting atherosclerotic disease on the right at multiple levels. The patient is being followed by the Cardiology Service. White count 6.7, H and H 13.6 and 41.4, sedimentation rate 33, BUN and creatinine level 7 and 0.9. He is currently receiving IV vancomycin, metronidazole, and cefepime. Blood cultures, no growth 24 hours. REVIEW OF SYSTEMS: On examination today, CONSTITUTIONAL: No chills. No fevers. No night sweats. No nausea or vomiting. No diarrhea. HEENT: No problems with eyes, ears, nose, or throat. CARDIOVASCULAR: Having no current chest pain. RESPIRATORY: No shortness of breath. GENITOURINARY: No dysuria. GASTROINTESTINAL: No dysphagia. ENDOCRINE: Diabetes. PSYCHIATRIC: Denied any depression. MUSCULOSKELETAL: Transmetatarsal amputation on the right. INTEGUMENTARY: Fibronecrotic ulcer lateral aspect of the transmetatarsal amputation on the right. OBJECTIVE: His examination today shows he has nonpalpable pedal pulses on the right. He has well-healed transmetatarsal amputation on the right. There is a wound to the lateral aspect of the right, transmetatarsal amputation measures 30 x 30 with a fibrotic base. There is edema, erythema, and cellulitis. ASSESSMENT: Right foot amputation stump ulcer. IMAGING STUDIES: No osteomyelitis per MRI. The patient with ischemic nonhealing lateral foot wound with peripheral vascular disease per arterial Doppler studies and CT angiography exam. The patient being followed by the Cardiology Service. PLAN: We are awaiting evaluation of the circulation status by the cardiology service. We will continue with IV vancomycin, metronidazole, and cefepime. Continue with local wound care with Betadine dressings. Continue to follow the patient closely while in-house. Heel protectors at all times in bed. Follow the patient closely while in-house. TID: [id number] RECEIPT: [id number]
--- NOTE | 2024-11-06 13:35 | PN ---
[facility] PROGRESS NOTE Date of Service: Nov 06, 2024 Time of Service: 13:23 SUBJECTIVE: 11/06/2024: Patient is seen in room 425, patient informed about his pain in right foot. Plan to continue the patient on fluids, patient's vitals are stable and labs are unremarkable. Cardiology informed about the plan to adjust the medications, repeat echocardiogram and plan for either redo bypass or AKA versus BKA. Blood cultures continue to be negative, Patient is asymptomatic otherwise, patient will be monitored closely. REVIEW OF SYSTEMS CONSTITUTIONAL: Chills, denies fevers, or night sweats. No unintentional weight loss reported. NEUROLOGICAL: Denies headache, amaurosis fugax, motor weakness, sensory deficit, vertigo/spinning sensation, gait abnormalities, or tremors. ENT: No hearing loss, otalgia, otorrhea, rhinitis, rhinorrhea, hoarseness, or sore throat. CARDIOVASCULAR: Denies any exertional angina, dyspnea on exertion, orthopnea, paroxysmal nocturnal dyspnea, palpitations, life-threatening arrhythmias, claudication. PULMONARY: Denies any shortness of breath, cough, phlegm/sputum, hemoptysis, pleuritic chest pain. SLEEP: Denies morning headaches, daytime somnolence or napping. Denies difficulty falling asleep, staying asleep, waking from sleep. Denies knowledge of snoring. GASTROINTESTINAL: Denies any type of dysphagia to either liquids or solids. Denies nausea, vomiting, pyrosis, early satiety, abdominal pain, diarrhea, constipation, or changes in stool consistency or caliber. Denies coffee-ground emesis, hematemesis, hematochezia, or melanotic stools. GENITOURINARY: Denies frequency, urgency, nocturia, hematuria or incontinence (Storage/Irritative symptoms.) Low urinary stream, straining to void, urinary intermittency or hesitancy, splitting of the voiding stream, terminal dribbling. ENDOCRINOLOGIC: Denies polyuria, polydipsia, polyphagia or heat/cold intolerances. HEMATOLOGIC: Denies thrombophilia/previous clots, or coagulopathy/bleeding disorders. ONCOLOGIC: Denies personal history of malignancy. DERMATOLOGIC: Nonhealing diabetic foot ulcer of the right foot TMA site PSYCHIATRIC: Denies any suicidal or homicidal ideation. Denies hallucinations. PHYSICAL EXAM GENERAL APPEARANCE: The patient is awake, alert, and oriented, in no acute cardiopulmonary distress. NEUROLOGICAL: Cranial nerves II-XII grossly intact. Motor is 5/5 in bilateral upper and lower extremities proximal to distal. No sensory deficits. HEENT: Face is symmetric. Pupils are equal and reactive. Extraocular movements are intact. NECK: Supple. No JVD. No thyromegaly. No submental, submandibular, pre- /postauricular, occipital or supraclavicular lymphadenopathy. CHEST: Normal chest expansion. No Telemetry. LUNGS: Absence of any rales, rhonchi or any wheezing. CARDIOVASCULAR: Regular. S1 and S2 normal. No appreciable rubs, murmurs or gallops. ABDOMEN: Soft, nontender, and nondistended. There is no rebound, voluntary guarding, or rigidity. : Deferred. No Jacobson. EXTREMITIES: Nonhealing diabetic foot ulcer of the right foot TMA site, dressing present, Non-edematous and not cyanotic. No clubbing. SKIN: No skin breakdown. Vital Signs (last 8hr) Date Time Temp Pulse Resp B/P (MAP) Pulse Ox O2 Delivery O2 Flow Rate FiO2 11/06/24 12:00 98.2 94 17 163/69 98 Room Air 11/06/24 08:00 96 Room Air* 0 21 11/06/24 08:00 97.5 98 17 146/76 976 Room Air LABS: Laboratory: Test 11/06/24 12:02 11/06/24 04:46 11/05/24 17:19 Range/Units Whole Blood Glucose 108 70-110 MG/DL White Blood Count 6.7 4.8-10.8 K/uL Red Blood Count 4.86 4.50-6.20 MIL/uL Hemoglobin 13.6 L 14.0-18.0 g/dL Hematocrit 41.4 L 42-54 % Mean Corpuscular Volume 85.2 79-99 fL Mean Corpuscular Hemoglobin 28.0 27.0-33.0 pg Mean Corpuscular Hemoglobin Concent 32.9 32.0-36.0 g/dL Red Cell Distribution Width 14.8 11.0-15.5 % Platelet Count 235 130-400 K/uL Mean Platelet Volume 9.7 7.5-10.5 fL Immature Granulocyte % (Auto) 0.3 0-1 % Neutrophils (%) (Auto) 54.4 40.0-77.0 % Lymphocytes (%) (Auto) 23.3 21.0-51.0 % Monocytes (%) (Auto) 14.1 H 3.0-13.0 % Eosinophils (%) (Auto) 7.1 0.0-8.0 % Basophils (%) (Auto) 0.8 0.0-5.0 % Neutrophils # (Auto) 3.6 1.8-7.7 K/uL Lymphocytes # (Auto) 1.6 1.0-4.8 K/uL Monocytes # (Auto) 0.9 0.1-1.0 K/uL Eosinophils # (Auto) 0.47 0.00-0.70 K/uL Basophils # (Auto) 0.05 0.00-0.20 K/uL Absolute Immature Granulocyte (auto 0.02 0-1 K/uL Nucleated Red Blood Cells 0.0 0.0-0.19 % Sodium Level 144 136-145 mmol/L Potassium Level 4.0 3.5-5.1 mmol/L Chloride Level 108 101-111 mmol/L Carbon Dioxide Level 26 21-32 mmol/L Blood Urea Nitrogen 7 7-18 mg/dL Creatinine 0.9 0.5-1.3 mg/dL Glomerular Filtration Rate Calc 95 >90 mL/min Random Glucose 102 70-105 mg/dL Lactic Acid Level 1.2 0.8-2.5 mmol/L Total Calcium 9.0 8.5-10.1 mg/dL Magnesium Level 2.10 1.80-2.40 mg/dL Total Bilirubin 0.5 0.2-1.0 mg/dL Aspartate Amino Transf (AST/SGOT) 19 10-37 U/L Alanine Aminotransferase (ALT/SGPT) 17 12-78 U/L Alkaline Phosphatase 65 50-136 U/L Total Protein 7.1 6.0-8.3 g/dL Albumin 3.1 L 3.5-5.0 g/dL Prothrombin Time 10.3 9.6-11.6 SEC Prothromb Time International Ratio 0.97 0.85-1.15 Current Medications Medications (Trade) Dose Ordered Sig/Teto Route PRN Reason Start Time Stop Time Status Last Admin Dose Admin Acetaminophen (TYLenol 325MG TAB) 650 mg Q6H PRN PO MILD PAIN (1-3) 11/04/24 13:30 12/04/24 13:29 Aspirin (Aspirin 81mg Ec Tab) 81 mg DAILY PO 11/05/24 15:00 12/05/24 14:59 11/06/24 08:20 81 MG Atorvastatin Calcium (LIPItor 40MG) 40 mg HS PO 11/04/24 21:00 12/04/24 20:59 11/05/24 19:52 40 MG Cefepime HCl (MAXipime 2 gm vial) 2 gm Q12H IVPB 11/04/24 13:30 11/14/24 13:29 11/06/24 01:44 2 GM Cilostazol (PLETal 100MG TAB) 100 mg DAILY PO 11/05/24 09:00 12/05/24 08:59 11/06/24 08:21 100 MG Clopidogrel Bisulfate (plaVIX 75MG) 75 mg DAILY PO 11/05/24 16:00 12/05/24 15:59 11/06/24 08:20 75 MG Dextrose (D50w) 50 ml AD PRN IV HYPOGLYCEMIA PROTOCOL 11/04/24 20:30 12/04/24 20:29 Enoxaparin Sodium (Lovenox) 30 mg DAILY SQ 11/05/24 09:00 12/05/24 08:59 11/06/24 08:20 30 MG Famotidine (Pepcid 20mg Vial) 20 mg BID IV 11/04/24 21:00 12/04/24 20:59 11/06/24 08:20 20 MG Gabapentin (NEURontin 300 MG CAP) 600 mg TID PO 11/04/24 21:00 12/04/24 20:59 11/06/24 08:20 600 MG Glucagon (Glucagon 1mg Kit) 1 mg AD PRN IM HYPOGLYCEMIA PROTOCOL 11/04/24 20:30 12/04/24 20:29 Hydralazine HCl (APRESOLine 20MG INJ) 10 mg Q6H PRN IV ADMINISTER FOR SBP > 170 11/04/24 13:30 11/05/24 10:51 DC 11/04/24 18:17 10 MG Insulin Glargine (LANtus 100 UNITS/ML 10 ML VIAL) 10 units HS SQ 11/04/24 21:00 12/04/24 20:59 11/05/24 21:52 10 UNITS Insulin Human Regular (humuLIN R 100 UNIT/ML 3ML) INSULIN SLIDING SCAL... ACHS SQ 11/04/24 16:30 12/04/24 16:29 Lisinopril (Prinivil 10mg) 10 mg DAILY PO 11/05/24 11:00 12/05/24 10:59 11/06/24 08:20 10 MG Lisinopril (Prinivil 5mg) 5 mg Q24H PO 11/04/24 13:30 11/05/24 10:51 DC 11/04/24 13:58 5 MG Magnesium Sulfate 50 ml @ 0 mls/hr PROTOCOL PRN IV NEEDED 11/05/24 12:30 12/05/24 12:29 11/05/24 15:19 25 MLS/HR Metoprolol Tartrate (loprESSOR) 25 mg Q24H PO 11/04/24 13:30 12/04/24 13:29 11/05/24 13:18 25 MG Metronidazole/ Sodium Chloride 100 ml @ 100 mls/hr Q8H IVPB 11/06/24 17:00 11/14/24 20:59 Metronidazole/ Sodium Chloride 100 ml @ 100 mls/hr TID IVPB 11/04/24 21:00 11/06/24 13:04 DC 11/06/24 08:21 100 MLS/HR Morphine Sulfate (morPHINE 2MG SYG) 2 mg Q6H PRN IVP SEVERE PAIN (7-10) 11/04/24 13:30 11/11/24 13:29 11/04/24 17:01 2 MG Ondansetron HCl (zoFRAN 4MG INJ) 4 mg Q6H PRN IVP NAUSEA/VOMITING 11/04/24 13:30 12/04/24 13:29 Pioglitazone HCl (Actos 15mg) 15 mg DAILY PO 11/05/24 09:00 12/05/24 08:59 11/06/24 08:20 15 MG Potassium Chloride 100 ml @ 100 mls/hr AD PRN IV POTASSIUM PROTOCOL 11/05/24 12:30 12/05/24 12:29 11/05/24 13:19 100 MLS/HR Potassium Chloride (K-Dur/Klor-Con 20meq) 20 meq AD PRN PO POTASSIUM PROTOCOL 11/05/24 12:30 12/05/24 12:29 11/05/24 19:52 20 MEQ Potassium Chloride (KCl 10% Elixir 20meq/15ml) 20 meq AD PRN PO POTASSIUM PROTOCOL 11/05/24 12:30 12/05/24 12:29 Sodium Chloride 1,000 ml @ 50 mls/hr Q20H IV 11/04/24 13:30 12/04/24 13:29 11/05/24 19:59 50 MLS/HR Vancomycin HCl 250 ml @ 125 mls/hr Q12H IV 11/05/24 03:00 11/15/24 02:59 11/06/24 03:20 125 MLS/HR Vancomycin HCl (Vancomycin Protocol) 1 each AD IV 11/04/24 13:30 11/18/24 13:29 Vitamin B Complex (Vitamin B-12) 1,000 mcg DAILY PO 11/05/24 09:00 12/05/24 08:59 11/06/24 08:21 1,000 MCG DIAGNOSTICS / RADIOLOGY: [ ] ASSESSMENT: Nonhealing diabetic foot wound involving the lateral aspect of the right foot TMA site with acute osteomyelitis, POA History of severe peripheral arterial disease involving the right lower extremity with prior history of femoral to popliteal artery bypass surgery on 08/10/2021, POA History of left lower extremity peripheral arterial disease, POA Underlying history of right foot transmetatarsal amputation in 2021, POA Hypokalemia Hypomagnesemia History of type 2 diabetes mellitus, POA Hypertension, POA Hyperlipidemia, POA Obesity, POA History of coronary artery disease with prior history of coronary artery bypass grafting in 2015, POA H/o tobacco abuse POA Carotid artery disease, 50-69% OCHOA and LICA, August 2023 PLAN: The patient remains admitted on the medical surgical floor under telemetry monitoring. Nonhealing diabetic foot wound involving the lateral aspect of the right foot TMA site with acute osteomyelitis, POA Underlying history of right foot transmetatarsal amputation in 2021, POA * Continue on broad-spectrum antibiotics with vancomycin/cefepime/Flagyl * Continue with gentle hydration, 0.9%Nacl 50 cc/hour and reevaluate tomorrow * Follow up wound cultures obtained from [facility]. His recommendations are to continue IV antibiotic therapy and provide local wound care. * Wound cultures obtained during this hospitalization are pending, follow up with the results when available * ESR 33, CRP 17.00, pending blood culture results. * PICC line will be placed for fdc IV antibiotics. * Follow-up with the infectious disease recommendations. History of severe peripheral arterial disease involving the right lower extremity with prior history of femoral to popliteal artery bypass surgery on 08/10/2021, POA History of left lower extremity peripheral arterial disease, POA * Arterial US (11/04/24) showed no flow in proximal and distal portion of right femoral artery, occlusion of right femoral posterior tibial artery bypass graft. CT Angio aorta with peripheral runoff (11/04/24) showed multiple short segment high-grade stenosis in right iliac artery with flow discontinuity, patent right posterior tibial artery, left anterior tibial and left renal artery. Occlusion of right anterior tibial and right peroneal artery and left posterior tibial artery. * Continue with the following: aspirin 81 mg daily, Plavix 75 mg daily, and cilostazol 100 mg daily. * Follow up with the roundhouse firer/fireman recommendations. Hypokalemia * K level is 2.9, replace per protocol. * Monitor for symptoms of palpitation, paresthesias or paralysis, EKG if needed * Repeat K at 1600 today Hypomagnesemia * Recent MG is 1.5, replace per protocol * Repeat in AM History of type 2 diabetes mellitus, POA * Recent blood glucose level is 105, Continue on sliding scale insulin a.c. and HS, and Lantus 10 units at bedtime * Continue with home dose of Actos * Hypoglycemia protocol Hypertension, POA * Due to ongoing hypertensive episodes, the lisinopril dose was increased to 10 mg daily. * Continue with metoprolol tartrate 25 mg daily * Discontinue PRN Hydralazine Hyperlipidemia, POA * Continue with Atorvastatin 40 mg daily. DVT Prophylaxis: Continue with Lovenox 30 mg subcue daily GI Prophylaxis: Continue with Famotidine 20 mg IV BID. PICC line will be placed today, he will require IV antibiotics post discharge. Case management assistance will be appreciated. Cardiology planning either redo bypass versus AKA versus BKA, awaiting further recommendations AM Labs: CBC, CMP, Lactic Acid, Magnesium Further orders per hospitalization course. ATTESTATION BY PHYSICIAN I have seen and examined the patient. I reviewed the documentation, medical decision making, and treatment plan as noted by the resident provider above. I agree with the findings and plan of care. Amadou Cruz MD, KEERTI K MD Nov 06, 2024 13:35
[2024-11-06 16:00] VITALS: BP 164/95; PULSE 93; RESP 17; TEMP 97.8
--- NOTE | 2024-11-06 16:19 | HMCSR ---
APPROVED REPORT EXAM: Two-dimensional and M-mode echocardiogram with Doppler and color Doppler. INDICATION ICD: h/o cabg 2D Dimensions RVDd3.5 cmLVEF(%)42.7 (>50%)LVED Vol(simp.)72.0 mL IVSd1.1 (0.7-1.1cm)FS(%)20 %LVES Vol(simp.)41.0 mL LVDd3.5 (3.8-5.6cm)LA (2D)2.9 (1.6-4.0cm)LVEF(%, simp.)43 % PWd1.0 (0.7-1.1cm)Ao Root(2D)3.2 (2.0-3.7cm)LA ESV INDEX (BP)25.37 mL/m2 LVDs2.8 (2.5-4.0cm)LVOT diam1.9 (1.8-2.4cm) IVC diam1.5 cm Deformation Strain Apical 4-15.4 % Apical 2-13.9 % Apical 3-14.4 % Global Strain-14.6 % M-Mode Dimensions EPSS0.5 cm LA (MM)4.1 (1.6-4.0cm) Ao Root(MM)3.0 (2.0-3.7cm) Aortic Valve AoV Vmax1.2 m/Lucie Peak GR6.2 mmHgLVOT Vmax0.9 m/s AoV VTI0.3 mAo Mean GR3.8 mmHgLVOT VTI0.20 m JASPER (VMAX)2.12 cm2AVA (VTI) 2.2 cm2 Mitral Valve MV E Vmax84.0 cm/sDECEL Qjbu267 ms MV A Xsvi023.5 cm/sP 1/2 T69 ms E/A ratio0.8MVA (PHT)3.2 cm2 TDI E/E' Ajhptt53.5E/E' Zdyjwfj40.0 Medial E' Peak V5.42 cm/sLateral E' Peak V6.48 cm/s Left Ventricle The left ventricle is normal size. Global strain of -15%. There is normal left ventricular wall thick ness. Sigmoid septum is present. LVEF is 50-55%. Indeterminate diastolic dysfunction. Right Ventricle The right ventricle is normal size. Right ventricular systolic function is mildly reduced. Atria The left atrium size is normal. The right atrium size is normal. Aortic Valve Aortic valve is trileaflet. The aortic valve is mildly thickened but opens well. No aortic regurgitat ion is present. There is no aortic valvular stenosis. Mitral Valve The mitral valve is normal in structure. There is no mitral valve regurgitation noted. There is no mi tral valve stenosis. Tricuspid Valve The tricuspid valve is normal in structure. There is no tricuspid valve regurgitation noted. Pulmonic Valve Pulmonic valve is not well visualized. There is no pulmonic valvular regurgitation. Great Vessels The aortic root is normal in size. The IVC is normal in size and collapses >50% with inspiration. Pericardium There is no pericardial effusion. Conclusion There is normal left ventricular wall thickness. Sigmoid septum is present. Global strain of -15%.
--- NOTE | 2024-11-06 17:01 | PN ---
Cardiology Progress Note Date of Service: 11/06/2024 Attending Security Sales Manager: Dr. Michael Shah Primary Security Sales Manager: Dr. Michael Stoner Reason for Consult: PAD Problem List: -Nonhealing ulcer with osteomyelitis in the proximal metatarsal stumps -PAD, Roane category 5 symptoms (RLE) -Low normal LV systolic function (LVEF: 50-55% by echo done 11/06/2024) -PAD s/p balloon lithotripsy and overlapping stent placement (Omnilik 8x59 mm and Everflex 7x60 mm) in the left common-external iliac arteries done on 08/07/[address] Smith s/p left femoral-right PACKAGE DRIER bypass done on 08/10/2021, s/p right TMA done on 08/12/2021 -HTN -HLP -DM2 -CAD s/p 4V CABG (ESTRELLA-LAD, SVG-OM2, SVG-OM3, SVG-RPDA with RPDA endarterectomy) done on 10/10/2015 -Bilateral DANA -CVI Subjective: This is a 64y/o male who was seen and evaluated at the bedside today. The patient denies any active complaints including chest pain, chest pressure, palpitations, shortness of breath, or lower extremity pain. As per the nurse, there were no overnight events. Vitals/Labs Vital Signs Date Time Temp Pulse Resp B/P (MAP) Pulse Ox O2 Delivery O2 Flow Rate FiO2 11/06/24 12:00 98.2 94 17 163/69 98 Room Air 11/06/24 08:00 0 21 General: Awake and alert. No acute distress. Chronically ill appearing. HEENT: Normocephalic, atraumatic. EOMI. Oral mucosa was moist. Neck: No masses, JVD, or carotid bruits. Lungs: No respiratory distress. SCM. Bilateral air entry. Clear to auscultation bilaterally. Cardio: Regular rate. Normal S1 and S2. No murmurs, rubs, or gallops. Abdomen: Soft, nontender, nondistended. No organomegaly. Normoactive bowel sounds x 4 quadrants. Extremities. No edema, clubbing, or cyanosis. Right TMA noted with bulky dressing in place, so we are unable to assess distal pulses. Neuro: Cranial nerves II through XII are grossly intact. No focal deficits identified. Laboratory Tests 11/06/24 04:46 Assessment: -Nonhealing ulcer with osteomyelitis in the proximal metatarsal stumps -PAD, Roane category 5 symptoms (RLE) -Low normal LV systolic function (LVEF: 50-55% by echo done 11/06/2024) -PAD s/p balloon lithotripsy and overlapping stent placement (Omnilik 8x59 mm and Everflex 7x60 mm) in the left common-external iliac arteries done on 08/07/[address] Smith s/p left femoral-right PACKAGE DRIER bypass done on 08/10/2021, s/p right TMA done on 08/12/2021 -HTN -HLP -DM2 -CAD s/p 4V CABG (ESTRELLA-LAD, SVG-OM2, SVG-OM3, SVG-RPDA with RPDA endarterectomy) done on 10/10/2015 -Bilateral DANA -CVI Plan: 1. PAD, Roane category 5 symptoms (RLE) -We will stop cilostazol and he will continue on aspirin 81 mg daily, clopidogrel 75 mg daily, and atorvastatin 40 mg QHS -Continue aggressive wound care and antibiotic therapy -TCOM Friday -Right lower extremity peripheral angiogram with possible intervention early next week. This case was discussed with my Supervising Physician, Dr. Michael Shah, and the above mentioned plan was formulated and agreed upon. -Progress Note written by Ellen Mccurdy, MSN, DRAW HAND, AGACNP-ELLEN REYES NP Nov 06, 2024 17:01
--- NOTE | 2024-11-06 17:21 | PN ---
INFECTIOUS DISEASE PROGRESS NOTE Date of Service: Nov 06, 2024 SUBJECTIVE: This is a 64-year-old patient who was seen and examined at bedside in room 425. The dressing to the right foot which had just been changed by Dr. Harris is clean and dry. Patient is afebrile, temperature is 98.2. No growth reported yet on the blood cultures. A PICC line was placed today to right upper extremity. MRI to the right foot was negative for osteomyelitis. We will continue on vancomycin, cefepime and metronidazole and follow up on the culture results. PHYSICAL EXAM EYES: Anicteric. Pupils equal and reactive. HENT: No oral thrush seen, moist Oral mucosa NECK: Supple, no JVD or thyromegaly. LUNGS: Good air entry. No rales, no rhonchi. CARDIOVASCULAR: S1, S2 regular. No murmur heard. ABDOMEN: Soft, non tender, bowel sounds present, no organomegaly CENTRAL NERVOUS SYSTEM: Awake, alert, oriented x 3. No focal deficits. SKIN: No rashes, no swelling. LYMPHATICS: No peripheral lymphadenopathy MUSCULOSKELETAL: No joint swelling, erythema or tenderness. EXTREMITIES: No cyanosis or clubbing. Right foot TMA stump infection BACK: No deformity, no pressure ulcer. GENITOURINARY: No dysuria or hematuria Vital Sign (Last 12 Hours) 11/06/24 11/06/24 11/06/24 08:00 08:00 12:00 Temp 97.5 98.2 Pulse 98 94 Resp 17 17 B/P (MAP) 146/76 163/69 Pulse Ox 976 96 98 O2 Delivery Room Air Room Air* Room Air O2 Flow Rate 0 FiO2 21 Intake & Output (last 24hrs) 11/05/24 11/05/24 11/06/24 15:00 23:00 07:00 Intake Total 680.0 ml 200.0 ml 150.0 ml Output Total 190 ml 110 ml Balance 490.0 ml 90.0 ml 150.0 ml LABS: Laboratory: Test 11/06/24 16:10 11/06/24 14:15 11/06/24 04:46 11/05/24 17:19 Range/Units Whole Blood Glucose 89 70-110 MG/DL Vancomycin Level Trough 15.2 10.0-20.0 UG/ML White Blood Count 6.7 4.8-10.8 K/uL Red Blood Count 4.86 4.50-6.20 MIL/uL Hemoglobin 13.6 L 14.0-18.0 g/dL Hematocrit 41.4 L 42-54 % Mean Corpuscular Volume 85.2 79-99 fL Mean Corpuscular Hemoglobin 28.0 27.0-33.0 pg Mean Corpuscular Hemoglobin Concent 32.9 32.0-36.0 g/dL Red Cell Distribution Width 14.8 11.0-15.5 % Platelet Count 235 130-400 K/uL Mean Platelet Volume 9.7 7.5-10.5 fL Immature Granulocyte % (Auto) 0.3 0-1 % Neutrophils (%) (Auto) 54.4 40.0-77.0 % Lymphocytes (%) (Auto) 23.3 21.0-51.0 % Monocytes (%) (Auto) 14.1 H 3.0-13.0 % Eosinophils (%) (Auto) 7.1 0.0-8.0 % Basophils (%) (Auto) 0.8 0.0-5.0 % Neutrophils # (Auto) 3.6 1.8-7.7 K/uL Lymphocytes # (Auto) 1.6 1.0-4.8 K/uL Monocytes # (Auto) 0.9 0.1-1.0 K/uL Eosinophils # (Auto) 0.47 0.00-0.70 K/uL Basophils # (Auto) 0.05 0.00-0.20 K/uL Absolute Immature Granulocyte (auto 0.02 0-1 K/uL Nucleated Red Blood Cells 0.0 0.0-0.19 % Sodium Level 144 136-145 mmol/L Potassium Level 4.0 3.5-5.1 mmol/L Chloride Level 108 101-111 mmol/L Carbon Dioxide Level 26 21-32 mmol/L Blood Urea Nitrogen 7 7-18 mg/dL Creatinine 0.9 0.5-1.3 mg/dL Glomerular Filtration Rate Calc 95 >90 mL/min Random Glucose 102 70-105 mg/dL Lactic Acid Level 1.2 0.8-2.5 mmol/L Total Calcium 9.0 8.5-10.1 mg/dL Magnesium Level 2.10 1.80-2.40 mg/dL Total Bilirubin 0.5 0.2-1.0 mg/dL Aspartate Amino Transf (AST/SGOT) 19 10-37 U/L Alanine Aminotransferase (ALT/SGPT) 17 12-78 U/L Alkaline Phosphatase 65 50-136 U/L Total Protein 7.1 6.0-8.3 g/dL Albumin 3.1 L 3.5-5.0 g/dL Prothrombin Time 10.3 9.6-11.6 SEC Prothromb Time International Ratio 0.97 0.85-1.15 ASSESSMENT: Right foot TMA stump ulcer. Diabetes mellitus. Peripheral vascular disease. PLAN: Continue vancomycin per pharmacy protocol. Continue cefepime. Continue metronidazole. Continue antidiabetics. Continue antiplatelets. Continue GI prophylaxis. Continue pain management. We will follow up on the culture results. This case was reviewed and discussed with my supervising physician and the above assessment and plan was formulated and agreed upon. ATTESTATION BY PHYSICIAN I have seen and examined the patient. I reviewed the documentation, medical decision making, and treatment plan as noted by the mid-level provider above. I agree with the findings and plan of care. BILLY WEBER MD, [facility] Nov 06, 2024 17:21
[2024-11-06 20:00] VITALS: BP 178/80; PULSE 88; RESP 20; TEMP 97.6; O2SAT 96
[2024-11-07] VITALS (7 sets, daily range): BP systolic 129–178; BP diastolic 73–96; PULSE 65–87; RESP 18–20; TEMP 97.8–98.2; O2SAT 95–96
[2024-11-07 05:13] LABS: IMMATURE GRANULOCYTE ABSOLUTE 0.02 K/uL (0-1); NUCLEATED RED BLOOD CELLS 0.0 % (0.0-0.19); PLATELET COUNT (AUTO) 207 K/uL (130-400); RED BLOOD CELL COUNT(AUTO) 4.53 MIL/uL (4.50-6.20); RED CELL DISTRIBUTION WIDTH 14.6 % (11.0-15.5); WHITE BLOOD COUNT (AUTO) 6.3 K/uL (4.8-10.8)
[2024-11-07 05:35] LABS: CREATININE 0.7 mg/dL (0.5-1.3); GLOMERULAR FILTR. RATE CALC 102.0 mL/min (>90); GLUCOSE,RANDOM 106.0 mg/dL (70-105); SODIUM SERUM 141.0 mmol/L (136-145); UREA NITROGEN, BLOOD 8.0 mg/dL (7-18)
--- NOTE | 2024-11-07 08:30 | NUR ---
DR PADRON AT BEDSIDE DOING WOUND DRESSING CHANGES. STATES THERE'S NO NEED TO COLLECT WOULD CULTURES SINCE THERE'S NOTHING THERE TO COLLECT. HE STATED ITS JUST A SCAB.
--- NOTE | 2024-11-07 09:08 | PN ---
SUBJECTIVE: The patient is a very pleasant 64-year-old diabetic, Latin-Chinese male with concern of right lateral foot pain. The patient is afebrile. T-max 98.1, pulse 87, respirations 28, blood pressure 160/83. The patient has a white count of 6.3, H and H 12.9 and 39.1, platelets 207. He has a neutrophils of 57.4. He has a BUN and creatinine level of 8 and 0.7. He has a glucose of 111. The patient is being evaluated by the Cardiology Service and Infectious Disease. He is being followed for a nonhealing ulcer without osteomyelitis to the right foot. There was some confusion on the reading of the MRI of his right foot. I called the radiologist personally and he informed me that the results were not dictated properly and the conclusion of the reading should have been no abnormal signal intensity involving the osseous structures of the right transmetatarsal amputation stump. He has peripheral vascular disease, hypertension, hyperlipidemia, diabetes type 2, coronary artery disease status post CABG. Plan is for a right lower extremity peripheral angiogram with possible intervention early this week. The patient is currently receiving IV vancomycin and cefepime. REVIEW OF SYSTEMS: CONSTITUTIONAL: Having no chills, no fevers, no night sweats. No nausea, no vomiting, no diarrhea. HEENT: No problems with his eyes, ears, nose, or throat. CARDIOVASCULAR: Has severe peripheral vascular disease, being evaluated by the Cardiology Service. Plan is for arteriogram and angioplasty procedure early this week. GENITOURINARY: No dysuria. Normal renal function. GASTROINTESTINAL: No dysphagia. ENDOCRINE: Diabetes. PSYCHIATRIC: Denied any depression. MUSCULOSKELETAL: Transmetatarsal amputation on right. MRI negative for osteomyelitis. INTEGUMENT: Fibro-necrotic, dry eschar ulcer to the lateral aspect of the transverse metatarsal amputation on the right. OBJECTIVE: His examination today, he has nonpalpable pedal pulses on the right. He has a transmetatarsal amputation on the right. There is a wound to the lateral aspect of the transmetatarsal amputation on the right, 30 x 30 mm with a fibrotic base. There is edema, erythema and associated cellulitis. ASSESSMENT: Right transmetatarsal amputation, right lateral foot transmetatarsal amputation, some fibro-necrotic ulcer. Results of his MRI exam were negative for osteomyelitis. A personal discussion I had with the radiologist, Dr. Gene Cleaning. PLAN: Awaiting evaluation of circulation status by the Audiometric Technician service. Continue with vancomycin and the cefepime. Follow the patient closely while in-house. Offloading measures to the right foot at all times in bed. TID: [id number] RECEIPT: [id number]
--- NOTE | 2024-11-07 10:49 | PN ---
[facility] PROGRESS NOTE Date of Service: Nov 07, 2024 Time of Service: 10:46 SUBJECTIVE: 11/06/2024: Patient is seen in room 425, patient informed about his pain in right foot. Plan to continue the patient on fluids, patient's vitals are stable and labs are unremarkable. Cardiology informed about the plan to adjust the medications, repeat echocardiogram and plan for either redo bypass or AKA versus BKA. Blood cultures continue to be negative, Patient is asymptomatic otherwise, patient will be monitored closely. 11/07/2024: The patient was evaluated in Room 425 and reports manageable pain, controlled with 2 mg morphine every 6 hours as needed. He is scheduled for a right lower extremity peripheral angiogram, with possible intervention by Dr. Walls tomorrow morning, and will be NPO from midnight in preparation. Based on his history of severe peripheral arterial disease, dual antiplatelet therapy (DAPT) and a statin will be continued per cardiology's recommendations. Additionally, the radiologist has revised the MRI foot report via addendum, now ruling out osteomyelitis, which was initially reported as positive. He remains on vancomycin, cefepime, and metronidazole, but wound cultures were deferred per Dr. Henriquez recommendation since there is no drainage and the wound is scabbing over. His blood pressure is elevated, with systolic readings persistently in the [id number], likely related to pain. We will increase lisinopril to 20 mg daily and monitor his vitals closely to ensure adequate control. Morning labs are unremarkable. We will maintain the current antibiotic regimen and coordinate follow-up with Infectious Disease, Podiatry, and Cardiology. The patient will be seen again after tomorrows procedure, with further assessment and plans outlined below. REVIEW OF SYSTEMS CONSTITUTIONAL: Chills, denies fevers, or night sweats. No unintentional weight loss reported. NEUROLOGICAL: Denies headache, amaurosis fugax, motor weakness, sensory deficit, vertigo/spinning sensation, gait abnormalities, or tremors. ENT: No hearing loss, otalgia, otorrhea, rhinitis, rhinorrhea, hoarseness, or sore throat. CARDIOVASCULAR: Denies any exertional angina, dyspnea on exertion, orthopnea, paroxysmal nocturnal dyspnea, palpitations, life-threatening arrhythmias, claudication. PULMONARY: Denies any shortness of breath, cough, phlegm/sputum, hemoptysis, pleuritic chest pain. SLEEP: Denies morning headaches, daytime somnolence or napping. Denies difficulty falling asleep, staying asleep, waking from sleep. Denies knowledge of snoring. GASTROINTESTINAL: Denies any type of dysphagia to either liquids or solids. Denies nausea, vomiting, pyrosis, early satiety, abdominal pain, diarrhea, constipation, or changes in stool consistency or caliber. Denies coffee-ground emesis, hematemesis, hematochezia, or melanotic stools. GENITOURINARY: Denies frequency, urgency, nocturia, hematuria or incontinence (Storage/Irritative symptoms.) Low urinary stream, straining to void, urinary intermittency or hesitancy, splitting of the voiding stream, terminal dribbling. ENDOCRINOLOGIC: Denies polyuria, polydipsia, polyphagia or heat/cold intolerances. HEMATOLOGIC: Denies thrombophilia/previous clots, or coagulopathy/bleeding d isorders. ONCOLOGIC: Denies personal history of malignancy. DERMATOLOGIC: Nonhealing diabetic foot ulcer of the right foot TMA site PSYCHIATRIC: Denies any suicidal or homicidal ideation. Denies hallucinations. PHYSICAL EXAM GENERAL APPEARANCE: The patient is awake, alert, and oriented, in no acute cardiopulmonary distress. NEUROLOGICAL: Cranial nerves II-XII grossly intact. Motor is 5/5 in bilateral upper and lower extremities proximal to distal. No sensory deficits. HEENT: Face is symmetric. Pupils are equal and reactive. Extraocular movements are intact. NECK: Supple. No JVD. No thyromegaly. No submental, submandibular, pre- /postauricular, occipital or supraclavicular lymphadenopathy. CHEST: Normal chest expansion. No Telemetry. LUNGS: Absence of any rales, rhonchi or any wheezing. CARDIOVASCULAR: Regular. S1 and S2 normal. No appreciable rubs, murmurs or gallops. ABDOMEN: Soft, nontender, and nondistended. There is no rebound, voluntary guarding, or rigidity. : Deferred. No Jacobson. EXTREMITIES: Nonhealing diabetic foot ulcer of the right foot TMA site, dressing present, Non-edematous and not cyanotic. No clubbing. SKIN: No skin breakdown. Vital Signs (last 8hr) Date Time Temp Pulse Resp B/P (MAP) Pulse Ox O2 Delivery O2 Flow Rate FiO2 11/07/24 04:00 98.1 87 20 160/83 95 Room Air LABS: Laboratory: Test 11/07/24 05:13 11/07/24 05:04 11/06/24 14:15 11/06/24 04:46 Range/Units Whole Blood Glucose 111 H 70-110 MG/DL White Blood Count 6.3 4.8-10.8 K/uL Red Blood Count 4.53 4.50-6.20 MIL/uL Hemoglobin 12.9 L 14.0-18.0 g/dL Hematocrit 39.1 L 42-54 % Mean Corpuscular Volume 86.3 79-99 fL Mean Corpuscular Hemoglobin 28.5 27.0-33.0 pg Mean Corpuscular Hemoglobin Concent 33.0 32.0-36.0 g/dL Red Cell Distribution Width 14.6 11.0-15.5 % Platelet Count 207 130-400 K/uL Mean Platelet Volume 9.5 7.5-10.5 fL Immature Granulocyte % (Auto) 0.3 0-1 % Neutrophils (%) (Auto) 57.4 40.0-77.0 % Lymphocytes (%) (Auto) 19.3 L 21.0-51.0 % Monocytes (%) (Auto) 14.1 H 3.0-13.0 % Eosinophils (%) (Auto) 8.1 H 0.0-8.0 % Basophils (%) (Auto) 0.8 0.0-5.0 % Neutrophils # (Auto) 3.6 1.8-7.7 K/uL Lymphocytes # (Auto) 1.2 1.0-4.8 K/uL Monocytes # (Auto) 0.9 0.1-1.0 K/uL Eosinophils # (Auto) 0.51 0.00-0.70 K/uL Basophils # (Auto) 0.05 0.00-0.20 K/uL Absolute Immature Granulocyte (auto 0.02 0-1 K/uL Nucleated Red Blood Cells 0.0 0.0-0.19 % Sodium Level 141 136-145 mmol/L Potassium Level 3.7 3.5-5.1 mmol/L Chloride Level 107 101-111 mmol/L Carbon Dioxide Level 28 21-32 mmol/L Blood Urea Nitrogen 8 7-18 mg/dL Creatinine 0.7 0.5-1.3 mg/dL Glomerular Filtration Rate Calc 102 >90 mL/min Random Glucose 106 H 70-105 mg/dL Total Calcium 8.8 8.5-10.1 mg/dL Vancomycin Level Trough 15.2 10.0-20.0 UG/ML Lactic Acid Level 1.2 0.8-2.5 mmol/L Magnesium Level 2.10 1.80-2.40 mg/dL Total Bilirubin 0.5 0.2-1.0 mg/dL Aspartate Amino Transf (AST/SGOT) 19 10-37 U/L Alanine Aminotransferase (ALT/SGPT) 17 12-78 U/L Alkaline Phosphatase 65 50-136 U/L Total Protein 7.1 6.0-8.3 g/dL Albumin 3.1 L 3.5-5.0 g/dL Test 11/05/24 17:19 Range/Units Prothrombin Time 10.3 9.6-11.6 SEC Prothromb Time International Ratio 0.97 0.85-1.15 Current Medications Medications (Trade) Dose Ordered Sig/Teto Route PRN Reason Start Time Stop Time Status Last Admin Dose Admin Acetaminophen (TYLenol 325MG TAB) 650 mg Q6H PRN PO MILD PAIN (1-3) 11/04/24 13:30 12/04/24 13:29 Aspirin (Aspirin 81mg Ec Tab) 81 mg DAILY PO 11/05/24 15:00 12/05/24 14:59 11/07/24 10:07 81 MG Atorvastatin Calcium (LIPItor 40MG) 40 mg HS PO 11/04/24 21:00 12/04/24 20:59 11/06/24 20:49 40 MG Cefepime HCl (MAXipime 2 gm vial) 2 gm Q12H IVPB 11/04/24 13:30 11/14/24 13:29 11/07/24 02:27 2 GM Cilostazol (PLETal 100MG TAB) 100 mg DAILY PO 11/05/24 09:00 11/06/24 17:00 DC 11/06/24 08:21 100 MG Clopidogrel Bisulfate (plaVIX 75MG) 75 mg DAILY PO 11/05/24 16:00 12/05/24 15:59 11/07/24 10:07 75 MG Dextrose (D50w) 50 ml AD PRN IV HYPOGLYCEMIA PROTOCOL 11/04/24 20:30 12/04/24 20:29 Enoxaparin Sodium (Lovenox) 30 mg DAILY SQ 11/05/24 09:00 12/05/24 08:59 11/07/24 10:08 30 MG Famotidine (Pepcid 20mg Vial) 20 mg BID IV 11/04/24 21:00 12/04/24 20:59 11/07/24 10:07 20 MG Gabapentin (NEURontin 300 MG CAP) 600 mg TID PO 11/04/24 21:00 12/04/24 20:59 11/07/24 10:12 600 MG Glucagon (Glucagon 1mg Kit) 1 mg AD PRN IM HYPOGLYCEMIA PROTOCOL 11/04/24 20:30 12/04/24 20:29 Hydralazine HCl (APRESOLine 20MG INJ) 10 mg Q6H PRN IV ADMINISTER FOR SBP > 170 11/04/24 13:30 11/05/24 10:51 DC 11/04/24 18:17 10 MG Insulin Glargine (LANtus 100 UNITS/ML 10 ML VIAL) 10 units HS SQ 11/04/24 21:00 12/04/24 20:59 11/06/24 20:50 10 UNITS Insulin Human Regular (humuLIN R 100 UNIT/ML 3ML) INSULIN SLIDING SCAL... ACHS SQ 11/04/24 16:30 12/04/24 16:29 Lisinopril (Prinivil 10mg) 10 mg DAILY PO 11/05/24 11:00 12/05/24 10:59 11/07/24 10:07 10 MG Lisinopril (Prinivil 5mg) 5 mg Q24H PO 11/04/24 13:30 11/05/24 10:51 DC 11/04/24 13:58 5 MG Magnesium Sulfate 50 ml @ 0 mls/hr PROTOCOL PRN IV NEEDED 11/05/24 12:30 12/05/24 12:29 11/05/24 15:19 25 MLS/HR Metoprolol Tartrate (loprESSOR) 25 mg BID PO 11/06/24 21:00 12/06/24 20:59 11/07/24 10:07 25 MG Metoprolol Tartrate (loprESSOR) 25 mg Q24H PO 11/04/24 13:30 11/06/24 15:22 DC 11/06/24 13:33 25 MG Metronidazole/ Sodium Chloride 100 ml @ 100 mls/hr Q8H IVPB 11/06/24 17:00 11/14/24 20:59 11/07/24 10:12 100 MLS/HR Metronidazole/ Sodium Chloride 100 ml @ 100 mls/hr TID IVPB 11/04/24 21:00 11/06/24 13:04 DC 11/06/24 08:21 100 MLS/HR Morphine Sulfate (morPHINE 2MG SYG) 2 mg Q6H PRN IVP SEVERE PAIN (7-10) 11/04/24 13:30 11/11/24 13:29 11/06/24 20:52 2 MG Ondansetron HCl (zoFRAN 4MG INJ) 4 mg Q6H PRN IVP NAUSEA/VOMITING 11/04/24 13:30 12/04/24 13:29 Pioglitazone HCl (Actos 15mg) 15 mg DAILY PO 11/05/24 09:00 12/05/24 08:59 11/07/24 10:07 15 MG Potassium Chloride 100 ml @ 100 mls/hr AD PRN IV POTASSIUM PROTOCOL 11/05/24 12:30 12/05/24 12:29 11/05/24 13:19 100 MLS/HR Potassium Chloride (K-Dur/Klor-Con 20meq) 20 meq AD PRN PO POTASSIUM PROTOCOL 11/05/24 12:30 12/05/24 12:29 11/07/24 10:08 20 MEQ Potassium Chloride (KCl 10% Elixir 20meq/15ml) 20 meq AD PRN PO POTASSIUM PROTOCOL 11/05/24 12:30 12/05/24 12:29 Sodium Chloride 1,000 ml @ 50 mls/hr Q20H IV 11/04/24 13:30 12/04/24 13:29 11/07/24 00:50 50 MLS/HR Vancomycin HCl 250 ml @ 125 mls/hr Q12H IV 11/05/24 03:00 11/15/24 02:59 11/07/24 03:30 125 MLS/HR Vancomycin HCl (Vancomycin Protocol) 1 each AD IV 11/04/24 13:30 11/18/24 13:29 Vitamin B Complex (Vitamin B-12) 1,000 mcg DAILY PO 11/05/24 09:00 12/05/24 08:59 11/07/24 10:07 1,000 [facility] / RADIOLOGY: [place] [address] [id number] IMAGING REPORT Signed PATIENT: ENMANUEL TURNER MR#: [id number] : 1960 SEX: M AGE: 64 LOCATION: 4DH ORDER 1224 STATUS: ADM IN REPORT#: [id number] SERVICE 1206 REASON: ISCHEMIC INFECTED RIGHT LATERAL TMA AMPUTATION STUMP ULCER ORDERING PHYSICIAN: SAMRA PADRON DPM PROCEDURE: FT RT WO - MR FOOT RIGHT WO ADDENDUM REPORT MR FOOT RIGHT WO HISTORY: Ischemic infected right lateral TMA amputation stump ulcer COMPARISON: None TECHNIQUE: MRI of the right foot was performed utilizing multiple pulse sequences in axial, coronal and sagittal planes. Patient was not given contrast through intravenous route. FINDINGS: Transmetatarsal amputations of all the toes are noted. No abnormal signal intensity is seen to suggest osteomyelitis. There are motion artifacts degrading the image quality. Degenerative changes are seen. IMPRESSION: 1. No abnormal increased signal intensity is seen specifically of the metatarsals stumps to suggest osteomyelitis. DICTATED BY: AMANDA TUBBS MD DATE: 11/06/24 162 ELECTRONICALLY SIGNED BY: AMANDA TUBBS MD DATE: 11/06/24 1632 [place] [address] [id number] IMAGING REPORT Signed PATIENT: ENMANUEL TURNER MR#: [id number] : 1960 SEX: M AGE: 64 LOCATION: [facility] ORDER 1312 STATUS: ADM IN REPORT#: [id number] SERVICE 1310 REASON: non resolving wound of RLE, hx of prior bypass, hx of stent to LLE ORDERING PHYSICIAN: KRISTIAN CHURCH MD PROCEDURE: ART B LE - US ARTERIAL BILAT LOW EXT DUPL US ARTERIAL BILAT LOW EXT DUPL HISTORY: Nonresolving wound of right lower extremity COMPARISON: 09/11/2021 TECHNIQUE: Bilateral lower extremity arterial Doppler ultrasound study was performed. FINDINGS: No flow is seen in the proximal and distal portions of the right superficial femoral artery suggesting occlusion. There is occlusion of the right femoral posterior tibial artery bypass graft. Abnormal monophasic arterial waveforms are positive for noted in the common femoral, deep femoral, superficial femoral, popliteal, posterior tibial and dorsalis pedal arteries. On the right, the peak systolic velocity of the common femoral artery is 63 cm/s, the proximal femoral artery is 0 cm/s, the mid femoral artery is 63 cm/s, the distal femoral artery is 0 cm/s, the proximal popliteal artery is 75 cm/s, the distal popliteal artery is 63 cm/s, the anterior tibial artery is 9 cm/s, the posterior tibial artery artery is 24 cm/s,and the dorsalis pedal artery is 11 cm/s. On the left, the peak systolic velocity of the common femoral artery is 156 cm/s, the proximal femoral artery is 119 cm/s, the mid femoral artery is 170 cm/s, the distal femoral artery is 15 cm/s, the proximal popliteal artery is 15 cm/s, the distal popliteal artery is 23 cm/s, the anterior tibial artery is 50 cm/s, the posterior tibial artery artery is 27 cm/s,and the dorsalis pedal artery is 46 cm/s. IMPRESSION: 1. Atherosclerotic disease. 2. No flow is seen in the proximal and distal portions of the right superficial femoral artery suggesting occlusion. There is occlusion of the right femoral posterior tibial artery bypass graft. Abnormal monophasic arterial waveforms are positive for noted in the common femoral, deep femoral, superficial femoral, popliteal, posterior tibial and dorsalis pedal arteries. DICTATED BY: AMANDA TUBBS MD DATE: 11/04/241710 ELECTRONICALLY SIGNED BY: AMANDA TUBBS MD DATE: 11/04/241714 [place] [address] [address] IMAGING REPORT Signed PATIENT: ENMANUEL TURNER MR#: [id number] : 1960 SEX: M AGE: 64 LOCATION: [facility] ORDER 21 STATUS: ADM IN REPORT#: [id number] SERVICE 17 REASON: occluded right femoral to [employer] bypass graft, non healing foot TMA wound with ORDERING PHYSICIAN: KRISTIAN CHURCH MD PROCEDURE: CTA ABDAOR - CT ANGIO ABD AORTA W RUNOFF CT ANGIO ABD AORTA W RUNOFF HISTORY: Occluded right femoral to posterior tibial artery bypass graft COMPARISON: Ultrasound from November 04, 2014 TECHNIQUE: CT angiography of the abdomen and pelvis was obtained using angiographic technique with maximum intensity projection reconstruction images. Patient was not given contrast through intravenous route. Oral contrast was not given. FINDINGS: No pleural effusion is seen bilaterally. There is no evidence of parenchymal disease or pulmonary nodule of the visualized lower lungs. Degenerative changes of the thoracolumbar spine are present. The heart is not enlarged. The liver, spleen, adrenal glands and pancreas are unremarkable. There is no evidence of hydronephrosis bilaterally. No evidence of renal stone is seen. Fecal material is seen in the colon. There are normal size retroperitoneal and mesenteric lymph nodes. No ascites is seen. Atherosclerotic changes are present. There is diffuse atherosclerotic disease. No evidence of abdominal aortic aneurysm is seen. The celiac, superior mesenteric and bilateral renal arteries are grossly patent. The visualized portion of the left iliac and femoral arterial systems are also grossly patent. Multiple short segment high-grade stenosis are noted in the right iliac artery with flow discontinuity. Flow in the right femoral posterior tibial stent cannot be fully evaluated. However, right posterior tibial artery is patent. The left anterior tibial, left renal arteries are grossly patent. There appears be occlusion of the right anterior tibial and right peroneal artery and left posterior tibial artery. Pelvic sidewalls are symmetric bilaterally. Bladder is well distended without wall thickening. IMPRESSION: 1. Multiple short segment high-grade stenosis are noted in the right iliac artery with flow discontinuity. Flow in the right femoral posterior tibial stent cannot be fully evaluated. However, right posterior tibial artery is patent. The left anterior tibial, left renal arteries are grossly patent. There appears be occlusion of the right anterior tibial and right peroneal artery and left posterior tibial artery. CT was performed with one or more following dose reduction techniques: automated exposure control, adjustment of the mA and kv according to patient's size, or use of a iterative reconstruction technique. DICTATED BY: AMANDA TUBBS MD DATE: 11/05/241530 ELECTRONICALLY SIGNED BY: AMANDA TUBBS MD DATE: 11/05/24 1538 [place] [id number] [id number] IMAGING REPORT Signed PATIENT: ENMANUEL TURNER MR#: [id number] : 1960 SEX: M AGE: 64 LOCATION: [facility] ORDER 1216 STATUS: ADM IN REPORT#: [id number] SERVICE 14 REASON: H/O CABG ORDERING PHYSICIAN: FELIPE HERNANDEZ NP PROCEDURE: ECHO CMP - ECHO 2-D COMPLETE APPROVED REPORT EXAM: Two-dimensional and M-mode echocardiogram with Doppler and color Doppler. INDICATION ICD: h/o cabg 2D Dimensions RVDd 3.5 cm LVEF(%) 42.7 (>50%) LVED Vol(simp.) 72.0 mL IVSd 1.1 (0.7-1.1cm) FS(%) 20 % LVES Vol(simp.) 41.0 mL LVDd 3.5 (3.8-5.6cm) LA (2D) 2.9 (1.6-4.0cm) LVEF(%, simp.) 43 % PWd 1.0 (0.7-1.1cm) Ao Root(2D) 3.2 (2.0-3.7cm) LA ESV INDEX (BP) 25.3 7 mL/m2 LVDs 2.8 (2.5-4.0cm) LVOT diam 1.9 (1.8-2.4cm) IVC diam 1.5 cm Deformation Strain Apical 4 -15.4 % Apical 2 -13.9 % Apical 3 -14.4 % Global Strain -14.6 % M-Mode Dimensions EPSS 0.5 cm LA (MM) 4.1 (1.6-4.0cm) Ao Root(MM) 3.0 (2.0-3.7cm) Aortic Valve AoV Vmax 1.2 m/s Ao Peak GR 6.2 mmHg LVOT Vmax 0.9 m/s AoV VTI 0.3 m Ao Mean GR 3.8 mmHg LVOT VTI 0.20 m JASPER (VMAX) 2.12 cm2 JASPER (VTI) 2.2 cm2 Mitral Valve MV E Vmax 84.0 cm/s DECEL Time 204 ms MV A Vmax 105.5 cm/s P 1/2 T 69 ms E/A ratio 0.8 MVA (PHT) 3.2 cm2 TDI E/E' Medial 15.5 E/E' Lateral 13.0 Medial E' Peak V 5.42 cm/s Lateral E' Peak V 6.48 cm/s Left Ventricle The left ventricle is normal size. Global strain of -15%. There is normal left ventricular wall thickness. Sigmoid septum is present. LVEF is 50-55%. Indeterminate diastolic dysfunction. Right Ventricle The right ventricle is normal size. Right ventricular systolic function is mildly reduced. Atria The left atrium size is normal. The right atrium size is normal. Aortic Valve Aortic valve is trileaflet. The aortic valve is mildly thickened but opens well. No aortic regurgitation is present. There is no aortic valvular stenosis. Mitral Valve The mitral valve is normal in structure. There is no mitral valve regurgitation noted. There is no mitral valve stenosis. Tricuspid Valve The tricuspid valve is normal in structure. There is no tricuspid valve regurgitation noted. Pulmonic Valve Pulmonic valve is not well visualized. There is no pulmonic valvular regurgitation. Great Vessels The aortic root is normal in size. The IVC is normal in size and collapses >50% with inspiration. Pericardium There is no pericardial effusion. Conclusion There is normal left ventricular wall thickness. Sigmoid septum is present. Global strain of -15%. DICTATED BY: RACIEL GEE MD DATE: 11/06/24 1328 ELECTRONICALLY SIGNED BY: RACIEL GEE MD DATE: 11/06/24 1616 ASSESSMENT: Nonhealing diabetic foot wound involving the lateral aspect of the right foot TMA site with MRI negative for osteomyelitis, POA History of severe peripheral arterial disease involving the right lower extremity with prior history of femoral to popliteal artery bypass surgery on 08/10/2021, POA History of left lower extremity peripheral arterial disease, POA Underlying history of right foot transmetatarsal amputation in 2021, POA Hypokalemia Hypomagnesemia History of type 2 diabetes mellitus, POA Hypertension, POA Hyperlipidemia, POA Obesity, POA History of coronary artery disease with prior history of coronary artery bypass grafting in 2015, POA H/o tobacco abuse POA Carotid artery disease, 50-69% OCHOA and LICA, August 2023 PLAN: The patient remains admitted on the medical surgical floor under telemetry monitoring. Nonhealing diabetic foot wound involving the lateral aspect of the right foot TMA site with MRI negative for osteomyelitis, POA Underlying history of right foot transmetatarsal amputation in 2021, POA * Continue on broad-spectrum antibiotics with vancomycin/cefepime/Flagyl * Continue with gentle hydration, 0.9%Nacl 50 cc/hour and reevaluate tomorrow * Follow up wound cultures obtained from [facility]. His recommendations are to continue IV antibiotic therapy and provide local wound care. * Wound cultures were not collected during this hospitalization and were deferred per Dr. Henriquez recommendation since there is no drainage and the wound is scabbing over. * Blood culture showed no growth after 3 days. * PICC line has been placed, given the negative MRI for osteomyelitis, we will follow Infectious Diseases recommendations regarding whether to continue IV antibiotics or transition to oral therapy after discharge, tailored to culture results and clinical response. History of severe peripheral arterial disease involving the right lower extremity with prior history of femoral to popliteal artery bypass surgery on 08/10/2021, POA History of left lower extremity peripheral arterial disease, POA * Arterial US (11/04/24) showed no flow in proximal and distal portion of right femoral artery, occlusion of right femoral posterior tibial artery bypass graft. CT Angio aorta with peripheral runoff (11/04/24) showed multiple short segment high-grade stenosis in right iliac artery with flow discontinuity, patent right posterior tibial artery, left anterior tibial and left renal artery. Occlusion of right anterior tibial and right peroneal artery and left posterior tibial artery. * Cilostazol was discontinued, Continue with the following: aspirin 81 mg daily, and Plavix 75 mg daily. * He is scheduled for a right lower extremity peripheral angiogram, with possible intervention by Dr. Walls tomorrow morning. Follow-up post procedure. Hypokalemia * Hypokalemia has been corrected, AM labs level of K is 3.7 * Replace as needed per protocol Hypomagnesemia * Recent MG is 2.1 * Replace per protocol as needed History of type 2 diabetes mellitus, POA * Recent blood glucose level is 105, Continue on sliding scale insulin a.c. and HS, and Lantus 10 units at bedtime * Continue with home dose of Actos * Hypoglycemia protocol Hypertension, POA * Due to ongoing hypertensive episodes, the lisinopril dose was increased to 20 mg daily. * Continue with metoprolol tartrate 25 mg daily * Discontinue PRN Hydralazine Hyperlipidemia, POA * Continue with Atorvastatin 40 mg daily. DVT Prophylaxis: Continue with Lovenox 30 mg subcue daily GI Prophylaxis: Continue with Famotidine 20 mg IV BID. AM Labs: CBC, BMP, Magnesium Discharge disposition: When ready for discharge, Possible to SNIFF, we will coordinate with other specialists to make the decision and request assistance w [facility] case management for authorization. Further orders per hospitalization course. ATTESTATION BY PHYSICIAN I have seen and examined the patient. I reviewed the documentation, medical decision making, and treatment plan as noted by the resident provider above. I agree with the findings and plan of care. Amadou Cruz MD, MANALI MD Nov 07, 2024 10:48
--- NOTE | 2024-11-07 15:25 | PN ---
[facility] PROGRESS NOTE Date of Service: Nov 07, 2024 Time of Service: 15:25 SUBJECTIVE: 11/06/2024: Patient is seen in room 425, patient informed about his pain in right foot. Plan to continue the patient on fluids, patient's vitals are stable and labs are unremarkable. Cardiology informed about the plan to adjust the medications, repeat echocardiogram and plan for either redo bypass or AKA versus BKA. Blood cultures continue to be negative, Patient is asymptomatic otherwise, patient will be monitored closely. REVIEW OF SYSTEMS CONSTITUTIONAL: Chills, denies fevers, or night sweats. No unintentional weight loss reported. NEUROLOGICAL: Denies headache, amaurosis fugax, motor weakness, sensory deficit, vertigo/spinning sensation, gait abnormalities, or tremors. ENT: No hearing loss, otalgia, otorrhea, rhinitis, rhinorrhea, hoarseness, or sore throat. CARDIOVASCULAR: Denies any exertional angina, dyspnea on exertion, orthopnea, paroxysmal nocturnal dyspnea, palpitations, life-threatening arrhythmias, claudication. PULMONARY: Denies any shortness of breath, cough, phlegm/sputum, hemoptysis, pleuritic chest pain. SLEEP: Denies morning headaches, daytime somnolence or napping. Denies difficulty falling asleep, staying asleep, waking from sleep. Denies knowledge of snoring. GASTROINTESTINAL: Denies any type of dysphagia to either liquids or solids. Denies nausea, vomiting, pyrosis, early satiety, abdominal pain, diarrhea, constipation, or changes in stool consistency or caliber. Denies coffee-ground emesis, hematemesis, hematochezia, or melanotic stools. GENITOURINARY: Denies frequency, urgency, nocturia, hematuria or incontinence (Storage/Irritative symptoms.) Low urinary stream, straining to void, urinary intermittency or hesitancy, splitting of the voiding stream, terminal dribbling. ENDOCRINOLOGIC: Denies polyuria, polydipsia, polyphagia or heat/cold intolerances. HEMATOLOGIC: Denies thrombophilia/previous clots, or coagulopathy/bleeding disorders. ONCOLOGIC: Denies personal history of malignancy. DERMATOLOGIC: Nonhealing diabetic foot ulcer of the right foot TMA site PSYCHIATRIC: Denies any suicidal or homicidal ideation. Denies hallucinations. PHYSICAL EXAM GENERAL APPEARANCE: The patient is awake, alert, and oriented, in no acute cardiopulmonary distress. NEUROLOGICAL: Cranial nerves II-XII grossly intact. Motor is 5/5 in bilateral upper and lower extremities proximal to distal. No sensory deficits. HEENT: Face is symmetric. Pupils are equal and reactive. Extraocular movements are intact. NECK: Supple. No JVD. No thyromegaly. No submental, submandibular, pre- /postauricular, occipital or supraclavicular lymphadenopathy. CHEST: Normal chest expansion. No Telemetry. LUNGS: Absence of any rales, rhonchi or any wheezing. CARDIOVASCULAR: Regular. S1 and S2 normal. No appreciable rubs, murmurs or gallops. ABDOMEN: Soft, nontender, and nondistended. There is no rebound, voluntary guarding, or rigidity. : Deferred. No Jacobson. EXTREMITIES: Nonhealing diabetic foot ulcer of the right foot TMA site, dressing present, Non-edematous and not cyanotic. No clubbing. SKIN: No skin breakdown. Vital Signs (last 8hr) Date Time Temp Pulse Resp B/P (MAP) Pulse Ox O2 Delivery O2 Flow Rate FiO2 11/07/24 08:00 98.1 65 18 175/80 97 Room Air LABS: Laboratory: Test 11/07/24 12:15 11/07/24 05:04 11/06/24 14:15 11/06/24 04:46 Range/Units Whole Blood Glucose 105 70-110 MG/DL White Blood Count 6.3 4.8-10.8 K/uL Red Blood Count 4.53 4.50-6.20 MIL/uL Hemoglobin 12.9 L 14.0-18.0 g/dL Hematocrit 39.1 L 42-54 % Mean Corpuscular Volume 86.3 79-99 fL Mean Corpuscular Hemoglobin 28.5 27.0-33.0 pg Mean Corpuscular Hemoglobin Concent 33.0 32.0-36.0 g/dL Red Cell Distribution Width 14.6 11.0-15.5 % Platelet Count 207 130-400 K/uL Mean Platelet Volume 9.5 7.5-10.5 fL Immature Granulocyte % (Auto) 0.3 0-1 % Neutrophils (%) (Auto) 57.4 40.0-77.0 % Lymphocytes (%) (Auto) 19.3 L 21.0-51.0 % Monocytes (%) (Auto) 14.1 H 3.0-13.0 % Eosinophils (%) (Auto) 8.1 H 0.0-8.0 % Basophils (%) (Auto) 0.8 0.0-5.0 % Neutrophils # (Auto) 3.6 1.8-7.7 K/uL Lymphocytes # (Auto) 1.2 1.0-4.8 K/uL Monocytes # (Auto) 0.9 0.1-1.0 K/uL Eosinophils # (Auto) 0.51 0.00-0.70 K/uL Basophils # (Auto) 0.05 0.00-0.20 K/uL Absolute Immature Granulocyte (auto 0.02 0-1 K/uL Nucleated Red Blood Cells 0.0 0.0-0.19 % Sodium Level 141 136-145 mmol/L Potassium Level 3.7 3.5-5.1 mmol/L Chloride Level 107 101-111 mmol/L Carbon Dioxide Level 28 21-32 mmol/L Blood Urea Nitrogen 8 7-18 mg/dL Creatinine 0.7 0.5-1.3 mg/dL Glomerular Filtration Rate Calc 102 >90 mL/min Random Glucose 106 H 70-105 mg/dL Total Calcium 8.8 8.5-10.1 mg/dL Vancomycin Level Trough 15.2 10.0-20.0 UG/ML Lactic Acid Level 1.2 0.8-2.5 mmol/L Magnesium Level 2.10 1.80-2.40 mg/dL Total Bilirubin 0.5 0.2-1.0 mg/dL Aspartate Amino Transf (AST/SGOT) 19 10-37 U/L Alanine Aminotransferase (ALT/SGPT) 17 12-78 U/L Alkaline Phosphatase 65 50-136 U/L Total Protein 7.1 6.0-8.3 g/dL Albumin 3.1 L 3.5-5.0 g/dL Test 11/05/24 17:19 Range/Units Prothrombin Time 10.3 9.6-11.6 SEC Prothromb Time International Ratio 0.97 0.85-1.15 Current Medications Medications (Trade) Dose Ordered Sig/Teto Route PRN Reason Start Time Stop Time Status Last Admin Dose Admin Acetaminophen (TYLenol 325MG TAB) 650 mg Q6H PRN PO MILD PAIN (1-3) 11/04/24 13:30 12/04/24 13:29 Aspirin (Aspirin 81mg Ec Tab) 81 mg DAILY PO 11/05/24 15:00 12/05/24 14:59 11/07/24 10:07 81 MG Atorvastatin Calcium (LIPItor 40MG) 40 mg HS PO 11/04/24 21:00 12/04/24 20:59 11/06/24 20:49 40 MG Cefepime HCl (MAXipime 2 gm vial) 2 gm Q12H IVPB 11/04/24 13:30 11/14/24 13:29 11/07/24 14:55 2 GM Cilostazol (PLETal 100MG TAB) 100 mg DAILY PO 11/05/24 09:00 11/06/24 17:00 DC 11/06/24 08:21 100 MG Clopidogrel Bisulfate (plaVIX 75MG) 75 mg DAILY PO 11/05/24 16:00 12/05/24 15:59 11/07/24 10:07 75 MG Dextrose (D50w) 50 ml AD PRN IV HYPOGLYCEMIA PROTOCOL 11/04/24 20:30 12/04/24 20:29 Enoxaparin Sodium (Lovenox) 30 mg DAILY SQ 11/05/24 09:00 12/05/24 08:59 11/07/24 10:08 30 MG Famotidine (Pepcid 20mg Vial) 20 mg BID IV 11/04/24 21:00 12/04/24 20:59 11/07/24 10:07 20 MG Gabapentin (NEURontin 300 MG CAP) 600 mg TID PO 11/04/24 21:00 12/04/24 20:59 11/07/24 14:55 600 MG Glucagon (Glucagon 1mg Kit) 1 mg AD PRN IM HYPOGLYCEMIA PROTOCOL 11/04/24 20:30 12/04/24 20:29 Hydralazine HCl (APRESOLine 20MG INJ) 10 mg Q6H PRN IV ADMINISTER FOR SBP > 170 11/04/24 13:30 11/05/24 10:51 DC 11/04/24 18:17 10 MG Insulin Glargine (LANtus 100 UNITS/ML 10 ML VIAL) 10 units HS SQ 11/04/24 21:00 12/04/24 20:59 11/06/24 20:50 10 UNITS Insulin Human Regular (humuLIN R 100 UNIT/ML 3ML) INSULIN SLIDING SCAL... ACHS SQ 11/04/24 16:30 12/04/24 16:29 Lisinopril (Prinivil 10mg) 10 mg DAILY PO 11/05/24 11:00 12/05/24 10:59 11/07/24 10:07 10 MG Lisinopril (Prinivil 5mg) 5 mg Q24H PO 11/04/24 13:30 11/05/24 10:51 DC 11/04/24 13:58 5 MG Magnesium Sulfate 50 ml @ 0 mls/hr PROTOCOL PRN IV NEEDED 11/05/24 12:30 12/05/24 12:29 11/05/24 15:19 25 MLS/HR Metoprolol Tartrate (loprESSOR) 25 mg BID PO 11/06/24 21:00 12/06/24 20:59 11/07/24 10:07 25 MG Metoprolol Tartrate (loprESSOR) 25 mg Q24H PO 11/04/24 13:30 11/06/24 15:22 DC 11/06/24 13:33 25 MG Metronidazole/ Sodium Chloride 100 ml @ 100 mls/hr Q8H IVPB 11/06/24 17:00 11/14/24 20:59 11/07/24 10:12 100 MLS/HR Metronidazole/ Sodium Chloride 100 ml @ 100 mls/hr TID IVPB 11/04/24 21:00 11/06/24 13:04 DC 11/06/24 08:21 100 MLS/HR Morphine Sulfate (morPHINE 2MG SYG) 2 mg Q6H PRN IVP SEVERE PAIN (7-10) 11/04/24 13:30 11/11/24 13:29 11/06/24 20:52 2 MG Ondansetron HCl (zoFRAN 4MG INJ) 4 mg Q6H PRN IVP NAUSEA/VOMITING 11/04/24 13:30 12/04/24 13:29 Pioglitazone HCl (Actos 15mg) 15 mg DAILY PO 11/05/24 09:00 12/05/24 08:59 11/07/24 10:07 15 MG Potassium Chloride 100 ml @ 100 mls/hr AD PRN IV POTASSIUM PROTOCOL 11/05/24 12:30 12/05/24 12:29 11/05/24 13:19 100 MLS/HR Potassium Chloride (K-Dur/Klor-Con 20meq) 20 meq AD PRN PO POTASSIUM PROTOCOL 11/05/24 12:30 12/05/24 12:29 11/07/24 10:08 20 MEQ Potassium Chloride (KCl 10% Elixir 20meq/15ml) 20 meq AD PRN PO POTASSIUM PROTOCOL 11/05/24 12:30 12/05/24 12:29 Sodium Chloride 1,000 ml @ 50 mls/hr Q20H IV 11/04/24 13:30 12/04/24 13:29 11/07/24 00:50 50 MLS/HR Vancomycin HCl 250 ml @ 125 mls/hr Q12H IV 11/05/24 03:00 11/15/24 02:59 11/07/24 03:30 125 MLS/HR Vancomycin HCl (Vancomycin Protocol) 1 each AD IV 11/04/24 13:30 11/18/24 13:29 Vitamin B Complex (Vitamin B-12) 1,000 mcg DAILY PO 11/05/24 09:00 12/05/24 08:59 11/07/24 10:07 1,000 MCG DIAGNOSTICS / RADIOLOGY: [ ] ASSESSMENT: Nonhealing diabetic foot wound involving the lateral aspect of the right foot TMA site with acute osteomyelitis, POA History of severe peripheral arterial disease involving the right lower extremity with prior history of femoral to popliteal artery bypass surgery on 08/10/2021, POA History of left lower extremity peripheral arterial disease, POA Underlying history of right foot transmetatarsal amputation in 2021, POA Hypokalemia Hypomagnesemia History of type 2 diabetes mellitus, POA Hypertension, POA Hyperlipidemia, POA Obesity, POA History of coronary artery disease with prior history of coronary artery bypass grafting in 2015, POA H/o tobacco abuse POA Carotid artery disease, 50-69% OCHOA and LICA, August 2023 PLAN: The patient remains admitted on the medical surgical floor under telemetry monitoring. Nonhealing diabetic foot wound involving the lateral aspect of the right foot TMA site with acute osteomyelitis, POA Underlying history of right foot transmetatarsal amputation in 2021, POA * Continue on broad-spectrum antibiotics with vancomycin/cefepime/Flagyl * Continue with gentle hydration, 0.9%Nacl 50 cc/hour and reevaluate tomorrow * Follow up wound cultures obtained from [facility] His recommendations are to continue IV antibiotic therapy and provide local wound care. * Wound cultures obtained during this hospitalization are pending, follow up with the results when available * ESR 33, CRP 17.00, pending blood culture results. * PICC line will be placed for terminal make up operator IV antibiotics. * Follow-up with the infectious disease recommendations. History of severe peripheral arterial disease involving the right lower extremity with prior history of femoral to popliteal artery bypass surgery on 08/10/2021, POA History of left lower extremity peripheral arterial disease, POA * Arterial US (11/04/24) showed no flow in proximal and distal portion of right femoral artery, occlusion of right femoral posterior tibial artery bypass graft. CT Angio aorta with peripheral runoff (11/04/24) showed multiple short segment high-grade stenosis in right iliac artery with flow discontinuity, patent right posterior tibial artery, left anterior tibial and left renal artery. Occlusion of right anterior tibial and right peroneal artery and left posterior tibial artery. * Continue with the following: aspirin 81 mg daily, Plavix 75 mg daily, and cilostazol 100 mg daily. * Follow up with the egg trayer recommendations. Hypokalemia * K level is 2.9, replace per protocol. * Monitor for symptoms of palpitation, paresthesias or paralysis, EKG if needed * Repeat K at 1600 today Hypomagnesemia * Recent MG is 1.5, replace per protocol * Repeat in AM History of type 2 diabetes mellitus, POA * Recent blood glucose level is 105, Continue on sliding scale insulin a.c. and HS, and Lantus 10 units at bedtime * Continue with home dose of Actos * Hypoglycemia protocol Hypertension, POA * Due to ongoing hypertensive episodes, the lisinopril dose was increased to 10 mg daily. * Continue with metoprolol tartrate 25 mg daily * Discontinue PRN Hydralazine Hyperlipidemia, POA * Continue with Atorvastatin 40 mg daily. DVT Prophylaxis: Continue with Lovenox 30 mg subcue daily GI Prophylaxis: Continue with Famotidine 20 mg IV BID. PICC line will be placed today, he will require IV antibiotics post discharge. Case management assistance will be appreciated. Cardiology planning either redo bypass versus AKA versus BKA, awaiting further recommendations AM Labs: CBC, CMP, Lactic Acid, Magnesium Further orders per hospitalization course. CESAR SPAULDING MD Nov 07, 2024 15:25
--- NOTE | 2024-11-07 17:44 | PN ---
Cardiology Progress Note Date of Service: 11/07/2024 Attending Ocean Forwarder: Dr. Michael Shah Primary Ocean Forwarder: Dr. Michael Stoner Reason for Consult: PAD Problem List: -Nonhealing ulcer with osteomyelitis in the proximal metatarsal stumps -PAD, [place] category 5 symptoms (RLE) -Low normal LV systolic function (LVEF: 50-55% by echo done 11/06/2024) -PAD s/p balloon lithotripsy and overlapping stent placement (Omnilik 8x59 mm and Everflex 7x60 mm) in the left common-external iliac arteries done on 08/07/[address] Smith s/p left femoral-right TECHNICAL FELLOW bypass done on 08/10/2021, s/p right TMA done on 08/12/2021 -HTN -HLP -DM2 -CAD s/p 4V CABG (ESTRELLA-LAD, SVG-OM2, SVG-OM3, SVG-RPDA with RPDA endarterectomy) done on 10/10/2015 -Bilateral DANA -CVI Subjective: This is a 64y/o male who was seen and evaluated at the bedside today. The patient continues to deny any active complaints including chest pain, chest pressure, palpitations, shortness of breath, or lower extremity pain. As per the nurse, there were no overnight events. Vitals/Labs Vital Signs Date Time Temp Pulse Resp B/P (MAP) Pulse Ox O2 Delivery O2 Flow Rate FiO2 11/07/24 16:00 98.1 84 18 149/96 97 Room Air 11/06/24 20:00 0 21 General: Awake and alert. No acute distress. Chronically ill appearing. HEENT: Normocephalic, atraumatic. EOMI. Oral mucosa was moist. Neck: No masses, JVD, or carotid bruits. Lungs: No respiratory distress. SCM. Bilateral air entry. Clear to auscultation bilaterally. Cardio: Regular rate. Normal S1 and S2. No murmurs, rubs, or gallops. Abdomen: Soft, nontender, nondistended. No organomegaly. Normoactive bowel sounds x 4 quadrants. Extremities. No edema, clubbing, or cyanosis. Right TMA noted with bulky dressing in place, so we are unable to assess distal pulses. Neuro: Cranial nerves II through XII are grossly intact. No focal deficits identified. Laboratory Tests 6/29/25 05:04 Assessment: -Nonhealing ulcer with osteomyelitis in the proximal metatarsal stumps -PAD, [place] category 5 symptoms (RLE) -Low normal LV systolic function (LVEF: 50-55% by echo done 11/06/2024) -PAD s/p balloon lithotripsy and overlapping stent placement (Omnilik 8x59 mm and Everflex 7x60 mm) in the left common-external iliac arteries done on 08/07/[address] Smith s/p left femoral-right TECHNICAL FELLOW bypass done on 08/10/2021, s/p right TMA done on 08/12/2021 -HTN -HLP -DM2 -CAD s/p 4V CABG (ESTRELLA-LAD, SVG-OM2, SVG-OM3, SVG-RPDA with RPDA endarterectomy) done on 10/10/2015 -Bilateral DANA -CVI Plan: 1. PAD, [place] category 5 symptoms (RLE) -In order to determine his candidacy for redo right lower extremity peripheral bypass, we recommend that he undergo a right lower extremity peripheral angiogram with possible intervention. The risks and benefits of the procedure have been explained to the patient and he wishes to proceed. -We will tentatively schedule the procedure for tomorrow morning, to be done by Dr. Santos Walls. -Please keep the patient NPO after midnight. -In addition, we will refer the patient for a TCOM to assess his candidacy for HBO therapy. -In the meantime, the patient will continue on aspirin 81 mg daily, clopidogrel 75 mg daily, and atorvastatin 40 mg QHS; and he should continue with aggressive wound care and antibiotic therapy. This case was discussed with my Supervising Physician, Dr. Michael Shah, and the above mentioned plan was formulated and agreed upon. -Progress Note written by Felipe Mccurdy, MSN, SUBSYSTEMS ENGINEER, AGACNP-BC FELIPE MCCURDY INCUBATOR OPERATOR Nov 07, 2024 17:44
--- NOTE | 2024-11-07 18:20 | PN ---
INFECTIOUS DISEASE PROGRESS NOTE Date of Service: Nov 07, 2024 SUBJECTIVE: This is a 64-year-old patient who was seen and examined at bedside in room 425. Patient is awake, alert and oriented x3. Per report cardiology has evaluated patient and will possibly be undergoing a peripheral angiogram tomorrow. Patient is afebrile, temperature 98.1. We will continue on vancomycin, cefepime and metronidazole. No other issues reported by nursing. PHYSICAL EXAM EYES: Anicteric. Pupils equal and reactive. HENT: No oral thrush seen, moist Oral mucosa NECK: Supple, no JVD or thyromegaly. LUNGS: Good air entry. No rales, no rhonchi. CARDIOVASCULAR: S1, S2 regular. No murmur heard. ABDOMEN: Soft, non tender, bowel sounds present, no organomegaly CENTRAL NERVOUS SYSTEM: Awake, alert, oriented x 3. No focal deficits. SKIN: No rashes, no swelling. LYMPHATICS: No peripheral lymphadenopathy MUSCULOSKELETAL: No joint swelling, erythema or tenderness. EXTREMITIES: No cyanosis or clubbing. Right foot TMA stump infection BACK: No deformity, no pressure ulcer. GENITOURINARY: No dysuria or hematuria Vital Sign (Last 12 Hours) 11/07/24 11/07/24 11/07/24 08:00 12:00 16:00 Temp 98.1 98.1 98.1 Pulse 65 65 84 Resp 18 18 18 B/P (MAP) 175/80 175/80 149/96 Pulse Ox 97 97 97 O2 Delivery Room Air Room Air Room Air Intake & Output (last 24hrs) 11/06/24 11/06/24 11/07/24 15:00 23:00 07:00 Intake Total 420.0 ml 1420.0 ml Output Total 2425 ml 190 ml 700 ml Balance -2005.0 ml 1230.0 ml -700 ml LABS: Laboratory: Test 11/07/24 15:58 11/07/24 05:04 11/06/24 14:15 11/06/24 04:46 Range/Units Whole Blood Glucose 109 70-110 MG/DL White Blood Count 6.3 4.8-10.8 K/uL Red Blood Count 4.53 4.50-6.20 MIL/uL Hemoglobin 12.9 L 14.0-18.0 g/dL Hematocrit 39.1 L 42-54 % Mean Corpuscular Volume 86.3 79-99 fL Mean Corpuscular Hemoglobin 28.5 27.0-33.0 pg Mean Corpuscular Hemoglobin Concent 33.0 32.0-36.0 g/dL Red Cell Distribution Width 14.6 11.0-15.5 % Platelet Count 207 130-400 K/uL Mean Platelet Volume 9.5 7.5-10.5 fL Immature Granulocyte % (Auto) 0.3 0-1 % Neutrophils (%) (Auto) 57.4 40.0-77.0 % Lymphocytes (%) (Auto) 19.3 L 21.0-51.0 % Monocytes (%) (Auto) 14.1 H 3.0-13.0 % Eosinophils (%) (Auto) 8.1 H 0.0-8.0 % Basophils (%) (Auto) 0.8 0.0-5.0 % Neutrophils # (Auto) 3.6 1.8-7.7 K/uL Lymphocytes # (Auto) 1.2 1.0-4.8 K/uL Monocytes # (Auto) 0.9 0.1-1.0 K/uL Eosinophils # (Auto) 0.51 0.00-0.70 K/uL Basophils # (Auto) 0.05 0.00-0.20 K/uL Absolute Immature Granulocyte (auto 0.02 0-1 K/uL Nucleated Red Blood Cells 0.0 0.0-0.19 % Sodium Level 141 136-145 mmol/L Potassium Level 3.7 3.5-5.1 mmol/L Chloride Level 107 101-111 mmol/L Carbon Dioxide Level 28 21-32 mmol/L Blood Urea Nitrogen 8 7-18 mg/dL Creatinine 0.7 0.5-1.3 mg/dL Glomerular Filtration Rate Calc 102 >90 mL/min Random Glucose 106 H 70-105 mg/dL Total Calcium 8.8 8.5-10.1 mg/dL Vancomycin Level Trough 15.2 10.0-20.0 UG/ML Lactic Acid Level 1.2 0.8-2.5 mmol/L Magnesium Level 2.10 1.80-2.40 mg/dL Total Bilirubin 0.5 0.2-1.0 mg/dL Aspartate Amino Transf (AST/SGOT) 19 10-37 U/L Alanine Aminotransferase (ALT/SGPT) 17 12-78 U/L Alkaline Phosphatase 65 50-136 U/L Total Protein 7.1 6.0-8.3 g/dL Albumin 3.1 L 3.5-5.0 g/dL ASSESSMENT: Right foot TMA stump nonhealing ulcer. Diabetes mellitus. Peripheral vascular disease. Coronary artery disease. PLAN: Continue vancomycin per pharmacy protocol. Continue cefepime. Continue metronidazole. Continue antidiabetics. Continue antiplatelets. Continue GI prophylaxis. Continue pain management. We will follow up on the culture results. Tumbling Instructor is following patient. This case was reviewed and discussed with my supervising physician and the above assessment and plan was formulated and agreed upon. ATTESTATION BY PHYSICIAN I have seen and examined the patient. I reviewed the documentation, medical decision making, and treatment plan as noted by the mid-level provider above. I agree with the findings and plan of care. BILLY WEBER MD, [facility] Nov 07, 2024 18:20
[2024-11-08] VITALS (19 sets, daily range): BP systolic 156–186; BP diastolic 66–94; PULSE 64–85; RESP 18–20; TEMP 97.6–98.6; O2SAT 98
[2024-11-08 05:34] LABS: IMMATURE GRANULOCYTE ABSOLUTE 0.01 K/uL (0-1); NUCLEATED RED BLOOD CELLS 0.0 % (0.0-0.19); PLATELET COUNT (AUTO) 227 K/uL (130-400); RED BLOOD CELL COUNT(AUTO) 4.68 MIL/uL (4.50-6.20); RED CELL DISTRIBUTION WIDTH 14.6 % (11.0-15.5); WHITE BLOOD COUNT (AUTO) 5.3 K/uL (4.8-10.8)
[2024-11-08 05:44] LABS: CREATININE 0.7 mg/dL (0.5-1.3); GLOMERULAR FILTR. RATE CALC 102.0 mL/min (>90); GLUCOSE,RANDOM 107.0 mg/dL (70-105); SODIUM SERUM 142.0 mmol/L (136-145); UREA NITROGEN, BLOOD 10.0 mg/dL (7-18)
[2024-11-08 05:50] LABS: INR 1.03 (0.85-1.15)
--- NOTE | 2024-11-08 06:39 | PN ---
SUBJECTIVE: The patient is a very pleasant 64-year-old diabetic [place] male who is followed up for right lateral foot pain, right lateral foot ulcer. MRI has been negative for osteomyelitis. He is remaining afebrile. His white count is within normal limits. He is currently receiving broad-spectrum antibiotics with use of IV vancomycin and cefepime. He is being evaluated for his circulation status by the Cardiology service. Plan is for possible arteriogram and angioplasty procedure. REVIEW OF SYSTEMS: CONSTITUTIONAL: No chills, no fevers or night sweats. No nausea or vomiting. No diarrhea. HEENT: No problems with eyes, ears, nose or throat. CARDIOVASCULAR: He has peripheral vascular disease and is being evaluated by the Cardiology service. Plan is for arteriogram and angioplasty procedure early this week. GENITOURINARY: Normal renal function GASTROINTESTINAL: No dysphagia. ENDOCRINE: Diabetes. PSYCHIATRIC: Denied any depression. MUSCULOSKELETAL: Transmetatarsal amputation on the right. MRI negative for osteomyelitis. INTEGUMENT: Gangrenous fibro-necrotic eschar ulcer to the lateral aspect of the transverse metatarsal amputation on the right. OBJECTIVE: Exam shows gangrenous necrosis of the soft tissue to the lateral aspect of the transmetatarsal amputation on the right with an area of 3 x 3 cm2. He has a transmetatarsal amputation on the right. He has edema, erythema and associated cellulitis. No abscess formation. ASSESSMENT: Right transmetatarsal amputation stump lateral gangrenous necrosis status post transmetatarsal amputation. The patient with an MRI that was negative for osteomyelitis. The patient is being evaluated for his circulation status by the Cardiology service. PLAN: We are awaiting evaluation of his circulation status by the Cardiology service. Continue with vancomycin and cefepime. Follow the patient closely while in-house. Offloading measures to the right foot at all times in bed. TID: [id number] RECEIPT: [id number]
--- NOTE | 2024-11-08 07:15 | PN ---
[facility] Cardiology Progress Note CARDIOLOGY PROGRESS NOTE NOVEMBER 08, 2024 Problems: 1. Nonhealing ulcer with osteomyelitis in the proximal metatarsal stump 2. Peripheral arterial disease status post lithotripsy in overlapping stents with an Omnilink 8 x 59 mm and Everflex 7 x 60 mm in the left common and external iliac arteries July 2021 with subsequent left femoral right COTTON CLASSER bypass August 2021 and right transmetatarsal amputation August 2021 3. CAD status post aortocoronary bypass graft surgery with a ESTRELLA graft to the LAD saphenous graft to the 2nd obtuse marginal artery saphenous graft to the 3rd obtuse marginal artery saphenous graft to the right posterior descending artery with endarterectomy September 2015 and LV ejection fraction of 50-55% by echo November 06, 2024 4. Hypertension 5. Dyslipidemia 6. Diabetes mellitus type 2 with circulatory disorders Blood pressure is running 150-170 systolic heart rate is in the 80s the patient is afebrile. White count 5.3 hemoglobin 13.2 platelet count [id number]. Potassium 3.2 BUN 10 creatinine 0.7. The patient continues on aspirin atorvastatin antibiotics clopidogrel Lovenox for DVT prophylaxis famotidine 20 mg IV b.i.d. gabapentin insulin scale lisinopril metoprolol tartrate pioglitazone potassium protocol. The patient is scheduled for right lower extremity aortic runoff and possible intervention with Dr. Walls today. Risks and benefits has been reviewed. Potassium will be supplemented. RACIEL GEE MD Nov 08, 2024 07:14
--- NOTE | 2024-11-08 07:30 | NUR ---
PICC LINE LEAKING FROM PICC LINE NOTED, UNSURE WHERE LEAK IS COMING FROM. MORTGAGE ANALYST NOTIFIED, WILL CONTACT [facility].
--- NOTE | 2024-11-08 09:00 | NUR ---
MEDICATION WITHHELD AM DOSE OF LOVENOX NOT GIVEN. PATIENT SCHEDULED FOR ANGIOGRAM LATER THIS MORNING
[2024-11-08] MEDS: LISINOPRIL 20 MG TABLET PO SCH (09:43)
--- NOTE | 2024-11-08 10:11 | PN ---
[facility] PROGRESS NOTE Date of Service: Nov 08, 2024 Time of Service: 10:11 SUBJECTIVE: 11/06/2024: Patient is seen in room 425, patient informed about his pain in right foot. Plan to continue the patient on fluids, patient's vitals are stable and labs are unremarkable. Cardiology informed about the plan to adjust the medications, repeat echocardiogram and plan for either redo bypass or AKA versus BKA. Blood cultures continue to be negative, Patient is asymptomatic otherwise, patient will be monitored closely. 11/07/2024: The patient was evaluated in Room 425 and reports manageable pain, controlled with 2 mg morphine every 6 hours as needed. He is scheduled for a right lower extremity peripheral angiogram, with possible intervention by Dr. Walls tomorrow morning, and will be NPO from midnight in preparation. Based on his history of severe peripheral arterial disease, dual antiplatelet therapy (DAPT) and a statin will be continued per cardiology's recommendations. Additionally, the radiologist has revised the MRI foot report via addendum, now ruling out osteomyelitis, which was initially reported as positive. He remains on vancomycin, cefepime, and metronidazole, but wound cultures were deferred per Dr. Henriquez recommendation since there is no drainage and the wound is scabbing over. His blood pressure is elevated, with systolic readings persistently in the [id number], likely related to pain. We will increase lisinopril to 20 mg daily and monitor his vitals closely to ensure adequate control. Morning labs are unremarkable. We will maintain the current antibiotic regimen and coordinate follow-up with Infectious Disease, Podiatry, and Cardiology. The patient will be seen again after tomorrows procedure, with further assessment and plans outlined below. 11/08/2024: The patient was evaluated several times today, both before and after catheterization, and consistently denied any complaints. His systolic blood pressure remains elevated in the 160s-170s despite uptitrating lisinopril dose to 20mg and Metoprolol 20 mg BID, so Norvasc 5 mg will be added to his antihypertensive regimen. He underwent a peripheral angiogram, which showed that catheter-based intervention would not be beneficial; however, a fem-fem or fem- popliteal bypass may be a viable option due to calcified and small-diameter common femoral and popliteal arteries. Vascular surgery consult with Dr. Rodriguez was placed, and further recommendations are awaited. He is currently receiving vancomycin, Flagyl, and cefepime. The PICC line was noted to be leaking overnight and is scheduled for replacement. AM labs revealed potassium level of 3.2 and Magnesium of 1.70, both have been replaced, otherwise nonsignificant. We will continue current antibiotic regimen and appreciate cardiovascular surgeon Dr. Rodriguez's recommendations for the further management of PAD. We will follow infectious disease, podiatry and cardiology recommendations. Further assessment and plan as discussed below. REVIEW OF SYSTEMS CONSTITUTIONAL: Chills, denies fevers, or night sweats. No unintentional weight loss reported. NEUROLOGICAL: Denies headache, amaurosis fugax, motor weakness, sensory deficit, vertigo/spinning sensation, gait abnormalities, or tremors. ENT: No hearing loss, otalgia, otorrhea, rhinitis, rhinorrhea, hoarseness, or sore throat. CARDIOVASCULAR: Denies any exertional angina, dyspnea on exertion, orthopnea, paroxysmal nocturnal dyspnea, palpitations, life-threatening arrhythmias, cl audication. PULMONARY: Denies any shortness of breath, cough, phlegm/sputum, hemoptysis, pleuritic chest pain. SLEEP: Denies morning headaches, daytime somnolence or napping. Denies difficulty falling asleep, staying asleep, waking from sleep. Denies knowledge of snoring. GASTROINTESTINAL: Denies any type of dysphagia to either liquids or solids. Denies nausea, vomiting, pyrosis, early satiety, abdominal pain, diarrhea, constipation, or changes in stool consistency or caliber. Denies coffee-ground emesis, hematemesis, hematochezia, or melanotic stools. GENITOURINARY: Denies frequency, urgency, nocturia, hematuria or incontinence (Storage/Irritative symptoms.) Low urinary stream, straining to void, urinary intermittency or hesitancy, splitting of the voiding stream, terminal dribbling. ENDOCRINOLOGIC: Denies polyuria, polydipsia, polyphagia or heat/cold intolerances. HEMATOLOGIC: Denies thrombophilia/previous clots, or coagulopathy/bleeding disorders. ONCOLOGIC: Denies personal history of malignancy. DERMATOLOGIC: Nonhealing diabetic foot ulcer of the right foot TMA site PSYCHIATRIC: Denies any suicidal or homicidal ideation. Denies hallucinations. PHYSICAL EXAM GENERAL APPEARANCE: The patient is awake, alert, and oriented, in no acute cardiopulmonary distress. NEUROLOGICAL: Cranial nerves II-XII grossly intact. Motor is 5/5 in bilateral upper and lower extremities proximal to distal. No sensory deficits. HEENT: Face is symmetric. Pupils are equal and reactive. Extraocular movements are intact. NECK: Supple. No JVD. No thyromegaly. No submental, submandibular, pre- /postauricular, occipital or supraclavicular lymphadenopathy. CHEST: Normal chest expansion. No Telemetry. LUNGS: Absence of any rales, rhonchi or any wheezing. CARDIOVASCULAR: Regular. S1 and S2 normal. No appreciable rubs, murmurs or gallops. ABDOMEN: Soft, nontender, and nondistended. There is no rebound, voluntary guarding, or rigidity. : Deferred. No Jacobson. EXTREMITIES: Nonhealing diabetic foot ulcer of the right foot TMA site, dressing present, Non-edematous and not cyanotic. No clubbing. SKIN: No skin breakdown. Vital Signs (last 8hr) Date Time Temp Pulse Resp B/P (MAP) Pulse Ox O2 Delivery O2 Flow Rate FiO2 11/08/24 08:00 98.4 78 18 172/94 98 Room Air 21 11/08/24 04:00 97.5 85 20 170/84 95 Room Air LABS: Laboratory: Test 11/08/24 05:15 11/08/24 05:01 11/06/24 14:15 Range/Units Whole Blood Glucose 106 70-110 MG/DL White Blood Count 5.3 4.8-10.8 K/uL Red Blood Count 4.68 4.50-6.20 MIL/uL Hemoglobin 13.2 L 14.0-18.0 g/dL Hematocrit 40.0 L 42-54 % Mean Corpuscular Volume 85.5 79-99 fL Mean Corpuscular Hemoglobin 28.2 27.0-33.0 pg Mean Corpuscular Hemoglobin Concent 33.0 32.0-36.0 g/dL Red Cell Distribution Width 14.6 11.0-15.5 % Platelet Count 227 130-400 K/uL Mean Platelet Volume 10.0 7.5-10.5 fL Immature Granulocyte % (Auto) 0.2 0-1 % Neutrophils (%) (Auto) 50.5 40.0-77.0 % Lymphocytes (%) (Auto) 24.7 21.0-51.0 % Monocytes (%) (Auto) 14.5 H 3.0-13.0 % Eosinophils (%) (Auto) 9.2 H 0.0-8.0 % Basophils (%) (Auto) 0.9 0.0-5.0 % Neutrophils # (Auto) 2.7 1.8-7.7 K/uL Lymphocytes # (Auto) 1.3 1.0-4.8 K/uL Monocytes # (Auto) 0.8 0.1-1.0 K/uL Eosinophils # (Auto) 0.49 0.00-0.70 K/uL Basophils # (Auto) 0.05 0.00-0.20 K/uL Absolute Immature Granulocyte (auto 0.01 0-1 K/uL Nucleated Red Blood Cells 0.0 0.0-0.19 % Prothrombin Time 10.9 9.6-11.6 SEC Prothromb Time International Ratio 1.03 0.85-1.15 Activated Partial Thromboplast Time 29.0 26.3-35.5 SEC Sodium Level 142 136-145 mmol/L Potassium Level 3.2 L 3.5-5.1 mmol/L Chloride Level 107 101-111 mmol/L Carbon Dioxide Level 26 21-32 mmol/L Blood Urea Nitrogen 10 7-18 mg/dL Creatinine 0.7 0.5-1.3 mg/dL Glomerular Filtration Rate Calc 102 >90 mL/min Random Glucose 107 H 70-105 mg/dL Total Calcium 8.8 8.5-10.1 mg/dL Magnesium Level 1.70 L 1.80-2.40 mg/dL Vancomycin Level Trough 15.2 10.0-20.0 UG/ML Current Medications Medications (Trade) Dose Ordered Sig/Teto Route PRN Reason Start Time Stop Time Status Last Admin Dose Admin Acetaminophen (TYLenol 325MG TAB) 650 mg Q6H PRN PO MILD PAIN (1-3) 11/04/24 13:30 12/04/24 13:29 Aspirin (Aspirin 81mg Ec Tab) 81 mg DAILY PO 11/05/24 15:00 12/05/24 14:59 11/07/24 10:07 81 MG Atorvastatin Calcium (LIPItor 40MG) 40 mg HS PO 11/04/24 21:00 12/04/24 20:59 11/07/24 21:26 40 MG Cefepime HCl (MAXipime 2 gm vial) 2 gm Q12H IVPB 11/04/24 13:30 11/14/24 13:29 11/08/24 00:30 2 GM Cilostazol (PLETal 100MG TAB) 100 mg DAILY PO 11/05/24 09:00 11/06/24 17:00 DC 11/06/24 08:21 100 MG Clopidogrel Bisulfate (plaVIX 75MG) 75 mg DAILY PO 11/05/24 16:00 12/05/24 15:59 11/08/24 09:44 75 MG Dextrose (D50w) 50 ml AD PRN IV HYPOGLYCEMIA PROTOCOL 11/04/24 20:30 12/04/24 20:29 Enoxaparin Sodium (Lovenox) 30 mg DAILY SQ 11/05/24 09:00 12/05/24 08:59 11/07/24 10:08 30 MG Famotidine (Pepcid 20mg Vial) 20 mg BID IV 11/04/24 21:00 12/04/24 20:59 11/08/24 09:43 20 MG Gabapentin (NEURontin 300 MG CAP) 600 mg TID PO 11/04/24 21:00 12/04/24 20:59 11/08/24 09:44 600 MG Glucagon (Glucagon 1mg Kit) 1 mg AD PRN IM HYPOGLYCEMIA PROTOCOL 11/04/24 20:30 12/04/24 20:29 Hydralazine HCl (APRESOLine 20MG INJ) 10 mg Q6H PRN IV ADMINISTER FOR SBP > 170 11/04/24 13:30 11/05/24 10:51 DC 11/04/24 18:17 10 MG Insulin Glargine (LANtus 100 UNITS/ML 10 ML VIAL) 10 units HS SQ 11/04/24 21:00 12/04/24 20:59 11/07/24 21:34 10 UNITS Insulin Human Regular (humuLIN R 100 UNIT/ML 3ML) INSULIN SLIDING SCAL... ACHS SQ 11/04/24 16:30 12/04/24 16:29 Lisinopril (Prinivil 10mg) 10 mg DAILY PO 11/05/24 11:00 11/07/24 21:44 DC 11/07/24 10:07 10 MG Lisinopril (Prinivil 20mg) 20 mg DAILY PO 11/08/24 09:00 12/08/24 08:59 11/08/24 09:43 20 MG Lisinopril (Prinivil 5mg) 5 mg Q24H PO 11/04/24 13:30 11/05/24 10:51 DC 11/04/24 13:58 5 MG Magnesium Sulfate 50 ml @ 0 mls/hr PROTOCOL PRN IV NEEDED 11/05/24 12:30 12/05/24 12:29 11/08/24 06:04 25 MLS/HR Metoprolol Tartrate (loprESSOR) 25 mg BID PO 11/06/24 21:00 12/06/24 20:59 11/08/24 09:53 25 MG Metoprolol Tartrate (loprESSOR) 25 mg Q24H PO 11/04/24 13:30 11/06/24 15:22 DC 11/06/24 13:33 25 MG Metronidazole/ Sodium Chloride 100 ml @ 100 mls/hr Q8H IVPB 11/06/24 17:00 11/14/24 20:59 11/08/24 09:43 100 MLS/HR Metronidazole/ Sodium Chloride 100 ml @ 100 mls/hr TID IVPB 11/04/24 21:00 11/06/24 13:04 DC 11/06/24 08:21 100 MLS/HR Morphine Sulfate (morPHINE 2MG SYG) 2 mg Q6H PRN IVP SEVERE PAIN (7-10) 11/04/24 13:30 11/11/24 13:29 11/06/24 20:52 2 MG Ondansetron HCl (zoFRAN 4MG INJ) 4 mg Q6H PRN IVP NAUSEA/VOMITING 11/04/24 13:30 12/04/24 13:29 Pioglitazone HCl (Actos 15mg) 15 mg DAILY PO 11/05/24 09:00 12/05/24 08:59 11/08/24 09:44 15 MG Potassium Chloride 100 ml @ 100 mls/hr AD PRN IV POTASSIUM PROTOCOL 11/05/24 12:30 12/05/24 12:29 11/08/24 06:03 100 MLS/HR Potassium Chloride (K-Dur/Klor-Con 20meq) 20 meq AD PRN PO POTASSIUM PROTOCOL 11/05/24 12:30 12/05/24 12:29 11/07/24 10:08 20 MEQ Potassium Chloride (KCl 10% Elixir 20meq/15ml) 20 meq AD PRN PO POTASSIUM PROTOCOL 11/05/24 12:30 12/05/24 12:29 Sodium Chloride 1,000 ml @ 50 mls/hr Q20H IV 11/04/24 13:30 12/04/24 13:29 11/07/24 21:36 50 MLS/HR Vancomycin HCl 250 ml @ 125 mls/hr Q12H IV 11/05/24 03:00 11/15/24 02:59 11/08/24 03:22 125 MLS/HR Vancomycin HCl (Vancomycin Protocol) 1 each AD IV 11/04/24 13:30 11/18/24 13:29 Vitamin B Complex (Vitamin B-12) 1,000 mcg DAILY PO 11/05/24 09:00 12/05/24 08:59 11/08/24 09:45 1,000 [facility] RADIOLOGY: [place] [address] IMAGING REPORT Signed PATIENT: ENMANUEL TURNER MR#: [id number] : 1960 SEX: M AGE: 64 LOCATION: 4DH ORDER 1224 STATUS: ADM IN REPORT#: [id number] SERVICE 1206 REASON: ISCHEMIC INFECTED RIGHT LATERAL TMA AMPUTATION STUMP ULCER ORDERING PHYSICIAN: SAMRA PADRON DPM PROCEDURE: FT RT WO - MR FOOT RIGHT WO ADDENDUM REPORT MR FOOT RIGHT WO HISTORY: Ischemic infected right lateral TMA amputation stump ulcer COMPARISON: None TECHNIQUE: MRI of the right foot was performed utilizing multiple pulse sequences in axial, coronal and sagittal planes. Patient was not given contrast through intravenous route. FINDINGS: Transmetatarsal amputations of all the toes are noted. No abnormal signal intensity is seen to suggest osteomyelitis. There are motion artifacts degrading the image quality. Degenerative changes are seen. IMPRESSION: 1. No abnormal increased signal intensity is seen specifically of the metatarsals stumps to suggest osteomyelitis. DICTATED BY: AMANDA TUBBS MD DATE: 11/06/24 1628 ELECTRONICALLY SIGNED BY: AMANDA TUBBS MD DATE: 11/06/24 163 [facility] [address] [place] [id number] IMAGING REPORT Signed PATIENT: ENMANUEL TURNER MR#: [id number] : 1960 SEX: M AGE: 64 LOCATION: EDHIP ORDER 1312 STATUS: ADM IN REPORT#: [id number] SERVICE 1310 REASON: non resolving wound of RLE, hx of prior bypass, hx of stent to LLE ORDERING PHYSICIAN: KRISTIAN CHURCH MD PROCEDURE: ART B LE - US ARTERIAL BILAT LOW EXT DUPL US ARTERIAL BILAT LOW EXT DUPL HISTORY: Nonresolving wound of right lower extremity COMPARISON: 09/11/2021 TECHNIQUE: Bilateral lower extremity arterial Doppler ultrasound study was performed. FINDINGS: No flow is seen in the proximal and distal portions of the right superficial femoral artery suggesting occlusion. There is occlusion of the right femoral posterior tibial artery bypass graft. Abnormal monophasic arterial waveforms are positive for noted in the common femoral, deep femoral, superficial femoral, popliteal, posterior tibial and dorsalis pedal arteries. On the right, the peak systolic velocity of the common femoral artery is 63 cm/s, the proximal femoral artery is 0 cm/s, the mid femoral artery is 63 cm/s, the distal femoral artery is 0 cm/s, the proximal popliteal artery is 75 cm/s, the distal popliteal artery is 63 cm/s, the anterior tibial artery is 9 cm/s, the posterior tibial artery artery is 24 cm/s,and the dorsalis pedal artery is 11 cm/s. On the left, the peak systolic velocity of the common femoral artery is 156 cm/s, the proximal femoral artery is 119 cm/s, the mid femoral artery is 170 cm/s, the distal femoral artery is 15 cm/s, the proximal popliteal artery is 15 cm/s, the distal popliteal artery is 23 cm/s, the anterior tibial artery is 50 cm/s, the posterior tibial artery artery is 27 cm/s,and the dorsalis pedal artery is 46 cm/s. IMPRESSION: 1. Atherosclerotic disease. 2. No flow is seen in the proximal and distal portions of the right superficial femoral artery suggesting occlusion. There is occlusion of the right femoral posterior tibial artery bypass graft. Abnormal monophasic arterial waveforms are positive for noted in the common femoral, deep femoral, superficial femoral, popliteal, posterior tibial and dorsalis pedal arteries. DICTATED BY: AMANDA TUBBS MD DATE: 11/04/241710 ELECTRONICALLY SIGNED BY: AMANDA TUBBS MD DATE: 11/04/241714 [facility] [address] [place] [address] IMAGING REPORT Signed PATIENT: ENMANUEL TURNER MR#: [id number] : 1960 SEX: M AGE: 64 LOCATION: 4DH ORDER 21 STATUS: ADM IN REPORT#: [id number] SERVICE 17 REASON: occluded right femoral to [employer] bypass graft, non healing foot TMA wound with ORDERING PHYSICIAN: KRISTIAN CHURCH MD PROCEDURE: CTA ABDAOR - CT ANGIO ABD AORTA W RUNOFF CT ANGIO ABD AORTA W RUNOFF HISTORY: Occluded right femoral to posterior tibial artery bypass graft COMPARISON: Ultrasound from November 04, 2014 TECHNIQUE: CT angiography of the abdomen and pelvis was obtained using angiographic technique with maximum intensity projection reconstruction images. Patient was not given contrast through intravenous route. Oral contrast was not given. FINDINGS: No pleural effusion is seen bilaterally. There is no evidence of parenchymal disease or pulmonary nodule of the visualized lower lungs. Degenerative changes of the thoracolumbar spine are present. The heart is not enlarged. The liver, spleen, adrenal glands and pancreas are unremarkable. There is no evidence of hydronephrosis bilaterally. No evidence of renal stone is seen. Fecal material is seen in the colon. There are normal size retroperitoneal and mesenteric lymph nodes. No ascites is seen. Atherosclerotic changes are present. There is diffuse atherosclerotic disease. No evidence of abdominal aortic aneurysm is seen. The celiac, superior mesenteric and bilateral renal arteries are grossly patent. The visualized portion of the left iliac and femoral arterial systems are also grossly patent. Multiple short segment high-grade stenosis are noted in the right iliac artery with flow discontinuity. Flow in the right femoral posterior tibial stent cannot be fully evaluated. However, right posterior tibial artery is patent. The left anterior tibial, left renal arteries are grossly patent. There appears be occlusion of the right anterior tibial and right peroneal artery and left posterior tibial artery. Pelvic sidewalls are symmetric bilaterally. Bladder is well distended without wall thickening. IMPRESSION: 1. Multiple short segment high-grade stenosis are noted in the right iliac artery with flow discontinuity. Flow in the right femoral posterior tibial stent cannot be fully evaluated. However, right posterior tibial artery is patent. The left anterior tibial, left renal arteries are grossly patent. There appears be occlusion of the right anterior tibial and right peroneal artery and left posterior tibial artery. CT was performed with one or more following dose reduction techniques: automated exposure control, adjustment of the mA and kv according to patient's size, or use of a iterative reconstruction technique. DICTATED BY: AMANDA TUBBS MD DATE: 11/05/241530 ELECTRONICALLY SIGNED BY: AMANDA TUBBS MD DATE: 11/05/241537 [place] [address] IMAGING REPORT Signed PATIENT: ENMANUEL TURNER MR#: [id number] : 1960 SEX: M AGE: 64 LOCATION: [facility] ORDER 1216 STATUS: ADM IN REPORT#: [id number] SERVICE 1215 REASON: H/O CABG ORDERING PHYSICIAN: FELIPE HERNANDEZ NP PROCEDURE: ECHO [facility] - ECHO 2-D COMPLETE APPROVED REPORT EXAM: Two-dimensional and M-mode echocardiogram with Doppler and color Doppler. INDICATION ICD: h/o cabg 2D Dimensions RVDd 3.5 cm LVEF(%) 42.7 (>50%) LVED Vol(simp.) 72.0 mL IVSd 1.1 (0.7-1.1cm) FS(%) 20 % LVES Vol(simp.) 41.0 mL LVDd 3.5 (3.8-5.6cm) LA (2D) 2.9 (1.6-4.0cm) LVEF(%, simp.) 43 % PWd 1.0 (0.7-1.1cm) Ao Root(2D) 3.2 (2.0-3.7cm) LA ESV INDEX (BP) 25.37 mL/m2 LVDs 2.8 (2.5-4.0cm) LVOT diam 1.9 (1.8-2.4cm) IVC diam 1.5 cm Deformation Strain Apical 4 -15.4 % Apical 2 -13.9 % Apical 3 -14.4 % Global Strain -14.6 % M-Mode Dimensions EPSS 0.5 cm LA (MM) 4.1 (1.6-4.0cm) Ao Root(MM) 3.0 (2.0-3.7cm) Aortic Valve AoV Vmax 1.2 m/s Ao Peak GR 6.2 mmHg LVOT Vmax 0.9 m/s AoV VTI 0.3 m Ao Mean GR 3.8 mmHg LVOT VTI 0.20 m JASPER (VMAX) 2.12 cm2 JASPER (VTI) 2.2 cm2 Mitral Valve MV E Vmax 84.0 cm/s DECEL Time 204 ms MV A Vmax 105.5 cm/s P 1/2 T 69 ms E/A ratio 0.8 MVA (PHT) 3.2 cm2 TDI E/E' Medial 15.5 E/E' Lateral 13.0 Medial E' Peak V 5.42 cm/s Lateral E' Peak V 6.48 cm/s Left Ventricle The left ventricle is normal size. Global strain of -15%. There is normal left ventricular wall thickness. Sigmoid septum is present. LVEF is 50-55%. Indeterminate diastolic dysfunction. Right Ventricle The right ventricle is normal size. Right ventricular systolic function is mildly reduced. Atria The left atrium size is normal. The right atrium size is normal. Aortic Valve Aortic valve is trileaflet. The aortic valve is mildly thickened but opens well. No aortic regurgitation is present. There is no aortic valvular stenosis. Mitral Valve The mitral valve is normal in structure. There is no mitral valve regurgitation noted. There is no mitral valve stenosis. Tricuspid Valve The tricuspid valve is normal in structure. There is no tricuspid valve regurgitation noted. Pulmonic Valve Pulmonic valve is not well visualized. There is no pulmonic valvular regurgitation. Great Vessels The aortic root is normal in size. The IVC is normal in size and collapses >50% with inspiration. Pericardium There is no pericardial effusion. Conclusion There is normal left ventricular wall thickness. Sigmoid septum is present. Global strain of -15%. DICTATED BY: RACIEL GEE MD DATE: 11/06/24 1328 ELECTRONICALLY SIGNED BY: RACIEL GEE MD DATE: 11/06/24 1619 RUN DATE: 11/08/24 [facility] [address] RUN TIME: [id number] [address] [place] [address] Department of [employer] CLIA # [id number] Pearl Technician: Rafy Ayala DO Specimen Report PATIENT: ENMANUEL TURNER ACCT: [id number] LOC: [facility] U: [id number] AGE/SX: 64/M ROOM: [facility] RE11/04/[address]: KRISTIAN CHURCH MD : 1960 BED: 1 DIS: STATUS: ADM IN TLOC: SPEC: [id number] ZAYDA: 11/04/24-1316 STATUS: RES REQ: [id number] RECD: 11/04/24-[address]: KRISTIAN CHURCH MD SOURCE: BLOOD ENTR: 11/04/24-1309 [facility] DR: BILLY WEBER MD [facility]: SAMRA PADRON DPVeronique REAGAN,GENI PIÑA MD ORDERED: BLOOD CULTURE COMMENTS: What is the Source? BLOOD Procedure Result Awa Date-Time BLOOD CULT Preliminary 11/08/24-1323 NO GROWTH AFTER 4 DAYS ASSESSMENT: Nonhealing diabetic foot wound involving the lateral aspect of the right foot TMA site with MRI negative for osteomyelitis, POA History of severe peripheral arterial disease involving the right lower extremity with prior history of femoral to popliteal artery bypass surgery on 08/10/2021, POA History of left lower extremity peripheral arterial disease, POA Underlying history of right foot transmetatarsal amputation in 2021, POA Hypokalemia Hypomagnesemia History of type 2 diabetes mellitus, POA Hypertension, POA Hyperlipidemia, POA Obesity, POA History of coronary artery disease with prior history of coronary artery bypass grafting in 2016, POA H/o tobacco abuse POA Carotid artery disease, 50-69% OCHOA and LICA, August 2023 PLAN: The patient remains admitted on the medical surgical floor under telemetry monitoring. Nonhealing diabetic foot wound involving the lateral aspect of the right foot TMA site with MRI negative for osteomyelitis, POA Underlying history of right foot transmetatarsal amputation in 2021, POA * Continue on broad-spectrum antibiotics with vancomycin/cefepime/Flagyl * Continue with 0.9%Nacl 150 cc/hour post angiogram today and reevaluate tomorrow * Follow up wound cultures obtained from [facility]. His recommendations are to continue IV antibiotic therapy and provide local wound care. * Wound cultures were not collected during this hospitalization and were deferred per Dr. Henriquez recommendation since there is no drainage and the wound is scabbing over. * Blood culture showed no growth after 4 days. * PICC line has been placed, given the negative MRI for osteomyelitis, we will follow Infectious Diseases recommendations regarding whether to continue IV antibiotics or transition to oral therapy after discharge, tailored to culture results and clinical response. History of severe peripheral arterial disease involving the right lower extremity with prior history of femoral to popliteal artery bypass surgery on 08/10/2021, POA History of left lower extremity peripheral arterial disease, POA * Peripheral angiogram (11/08/24) showed that catheter-based intervention would not be beneficial; however, a fem-fem or fem-popliteal bypass may be a viable option due to calcified and small-diameter common femoral and popliteal arteries. Vascular surgery consult with Dr. Rodriguez was placed, and further recommendations are awaited * Arterial US (11/04/24) showed no flow in proximal and distal portion of right femoral artery, occlusion of right femoral posterior tibial artery bypass graft. CT Angio aorta with peripheral runoff (11/04/24) showed multiple short segment high-grade stenosis in right iliac artery with flow discontinuity, patent right posterior tibial artery, left anterior tibial and left renal artery. Occlusion of right anterior tibial and right peroneal artery and left posterior tibial artery. * Continue with the following: aspirin 81 mg daily, and Plavix 75 mg daily. Hypokalemia * AM labs showed K level of 3.2. * Replace as needed per protocol * Repeat at 1600 today Hypomagnesemia * Recent MG is 1.7 * Replace per protocol as needed History of type 2 diabetes mellitus, POA * Recent blood glucose level is 115, Continue on sliding scale insulin a.c. and HS, and Lantus 10 units bedtime * Continue with home dose of Actos * Hypoglycemia protocol Hypertension, POA * Due to persistent hypertension, Norvasc 5 mg was added to the regimen. The patient is now on Lisinopril 20 mg daily, Metoprolol 25 mg BID, and Norvasc 5 mg daily. * Closely monitor vitals, Q4 * Avoid PRN antihypertensives Hyperlipidemia, POA * Continue with Atorvastatin 40 mg daily. DVT Prophylaxis: Continue with Lovenox 30 mg subcue daily GI Prophylaxis: Continue with Famotidine 20 mg IV BID. AM Labs: CBC, BMP, Magnesium Discharge disposition: When ready for discharge, Possible to [facility], we have requested assistance with case management for authorization. Further orders per hospitalization course. ATTESTATION BY PHYSICIAN I have seen and examined the patient. I reviewed the documentation, medical decision making, and treatment plan as noted by the resident provider above. I agree with the findings and plan of care. Amadou Cruz MD, MANALI MD Nov 08, 2024 10:11
[2024-11-08] MEDS ORDERED: LIDOCAINE HCL 400MG/20ML VIAL ONE (12:19)
[2024-11-08] MEDS ORDERED: IODIXANOL 320 MG/ML 100 ML VIAL ONE (12:19)
[2024-11-08] MEDS ORDERED: HEParin-NS 1,000 UNIT/500 ML 1,000 ML IV ONE (12:19)
[2024-11-08] MEDS ORDERED: SODIUM BICARB 50MEQ 50ML VIAL 50 ML ONE (12:19)
[2024-11-08] MEDS ORDERED: NITROGLYCERIN 50MG VIAL ONE (12:20)
--- NOTE | 2024-11-08 12:32 | NUR ---
PROCEDURE PATIENT OFF UNIT FOR ANGIOGRAM WITH DR. FRANKLIN.
[2024-11-08] MEDS ORDERED: MIDAZOLAM HCL 1 MG/ML 2ML VIAL ONE (12:53)
--- NOTE | 2024-11-08 14:25 | NUR ---
PATIENT REPORT RECEIVED PATIENT FROM WIREWORKER NURSE. PATIENT AAOX3. NO DISTRESS NOTED. ANGIOGRAM WITH DR. FRANKLIN NO INTERVENTIONS AT THIS TIME. ENTERED THROUGH LEFT FEMORAL ARTERY. NO BLEEDING NO HEMATOMA NOTED. 4X4 DR[address] CLEAN DRY AND INTACT. PATIENT REPORTS NO PAIN. BEDREST X 3 HOURS MAY RESUME DIET ONCE RECOVERED. CHECK PULSES TO LEFT EXTREMITY BY DOPPLER. NS AT 150 ML/HR X 1 BAG.
--- NOTE | 2024-11-08 14:36 | PRN ---
ABDOMINAL AORTOGRAM WITH PELVIC RUNOFF, RIGHT LOWER EXTREMITY DIGITAL SUBTRACTION SERIES INDICATION: LIMB SALVAGE TECHNIQUE: Patient was brought to the lab in a fasting state after informed consent and sedated with 1 mg Versed and 50 mcg fentanyl. Under local anesthesia with 1% lidocaine using fluoroscopic and ultrasound guidance with micropuncture technique the left common femoral artery was punctured anteriorly and a six Georgian sheath was inserted. An Omni flush was positioned in the dis dara abdominal aorta and aortogram with pelvic runoff was obtained by digital subtraction. The catheter was then repositioned in the right internal iliac over a Glidewire and sequential digital subtraction angiogram were obtained from the iliac bifurcation to the foot. At the conclusion of the procedure the patient was treated with 50 mg Trandate for blood pressure control and hem ostasis was obtained by use of a Mynx device. Excellent hemostasis was obtained and the patient was transferred from the lab in stable condition. He received 80 mL contrast. Results: There is extensive calcification in the distal abdominal aorta but it is not significantly narrowed. The left common and external iliac are stented and the stent remains patent. The left profunda is occluded at its origin and does not reconstitute in the proximal thigh. The proximal SFA and common femoral are heavily calcified but patent. The right common iliac is calcified and narrowed by 30-40%. The right internal iliac supplies collateral to the right common femoral, but the right external iliac is totally occluded throughout its length. The right superficial femoral is totally occluded within 15 mm of its origin and remains so to the distal popliteal. The profunda is occluded mid thigh but does supplies some collateral to the distal popliteal. The popliteal is occluded through its proximal half but is patent in its distal half, and is heavily calcified. The right anterior tibial is notable for a flush ostial occlusion which extends to midway between the calf and ankle with minimal reconstitution through collaterals from the peroneal at the ankle. The KAROL is then patent to the level of the dorsalis pedis but does not supply the arch and there has been a transmetatarsal amputation. The right tibioperoneal is calcified but patent. The right peroneal is 1.2 mm diameter but patent to the ankle and supplies colla teral to the distal KAROL as mentioned. The right posterior tibial is notable for a mid calf tortuosity with clips which appears to be from tenting from a previous bypass which is occluded. The vessel itself, however, is patent all the way into the foot and under the arch. Conclusions: No catheter based intervention would be helpful in this case, but there may be some potential for a fem-fem/fem-popliteal bypass. The common femoral and popliteal are calcified and relatively small diameter, but this should be shown to the surgeons as a potential candidate. WILLIAN FRANKLIN MD Nov 08, 2024 14:36
[2024-11-08] MEDS: 0.9%NACL 1000ML 1,000 ML IV SCH (15:22)
--- NOTE | 2024-11-08 17:40 | NUR ---
PICC LINE REPLACEMENT RGV PICCS ON UNIT FOR PICC LINE REPLACEMENT. STAT CHEST XRAY ORDERED.
[2024-11-08] MEDS: VANCOMYCIN 1G/250ML KIT 250 ML IV SCH (17:47)
[2024-11-08] MEDS: amLODIPine 5 MG TAB PO SCH (17:59)
--- NOTE | 2024-11-08 18:28 | HMCIMG ---
EXAM: CR Chest, 2 View. CLINICAL HISTORY: PICC LINE INSERTION COMPARISON: Radiograph dated November 05, 2024 FINDINGS: Right PICC terminates at the distal SVC. LUNGS: There is no mass, infiltrate, or acute pulmonary abnormality. PLEURAL SPACES: No pleural effusion or pneumothorax. MEDIASTINUM: Prior sternotomy. The cardiomediastinal silhouette is within normal limits. BONES: No acute osseous abnormality. IMPRESSION: 1. No acute findings. 2. Right PICC line terminates appropriately in distal SVC. /[place]
--- NOTE | 2024-11-08 18:50 | PN ---
INFECTIOUS DISEASE PROGRESS NOTE Date of Service: Nov 08, 2024 SUBJECTIVE: This is a 64-year-old patient who was seen and examined at bedside in room 425. Patient is awake, alert and oriented x3. Cardiology is following patient and is scheduled for a peripheral angiogram for today. We will continue on vancomycin, cefepime and metronidazole. No reports of nausea or vomiting. PHYSICAL EXAM EYES: Anicteric. Pupils equal and reactive. HENT: No oral thrush seen, moist Oral mucosa. NECK: Supple, no JVD or thyromegaly. LUNGS: Good air entry. No rales, no rhonchi. CARDIOVASCULAR: S1, S2 regular. No murmur heard. ABDOMEN: Soft, non tender, bowel sounds present, no organomegaly. CENTRAL NERVOUS SYSTEM: Awake, alert, oriented x 3. SKIN: No rashes, no swelling. LYMPHATICS: No peripheral lymphadenopathy. MUSCULOSKELETAL: No joint swelling, erythema or tenderness. EXTREMITIES: No cyanosis or clubbing. Right foot TMA stump nonhealing ulcer. BACK: No deformity, no pressure ulcer. GENITOURINARY: No dysuria or hematuria. Vital Sign (Last 12 Hours) 11/08/24 11/08/24 11/08/24 11/08/24 08:00 12:00 14:20 14:30 Temp 98.4 98.6 98.1 Pulse 78 74 77 78 Resp 18 18 18 B/P (MAP) 172/94 166/86 158/81 156/80 Pulse Ox 98 95 97 97 O2 Delivery Room Air Room Air Room Air FiO2 21 21 21 11/08/24 11/08/24 11/08/24 11/08/24 14:50 15:10 15:25 15:55 Pulse 77 76 76 75 B/P (MAP) 176/76 167/81 167/75 166/75 Pulse Ox 97 96 96 95 11/08/24 11/08/24 11/08/24 11/08/24 16:00 16:25 17:25 18:25 Temp 98.4 Pulse 76 77 77 78 Resp 18 B/P (MAP) 186/71 168/75 170/76 170/76 Pulse Ox 97 95 96 96 O2 Delivery Room Air FiO2 21 Intake & Output (last 24hrs) 11/07/24 11/07/24 11/08/24 15:00 23:00 07:00 Intake Total 215 ml 1200.0 ml Output Total 1220 ml 115 ml 2050 ml Balance -1005 ml 1085.0 ml -2050 ml LABS: Laboratory: Test 11/08/24 15:43 11/08/24 15:24 11/08/24 05:01 Range/Units Whole Blood Glucose 98 70-110 MG/DL Potassium Level 3.5 3.5-5.1 mmol/L Vancomycin Level Trough 12.8 10.0-20.0 UG/ML White Blood Count 5.3 4.8-10.8 K/uL Red Blood Count 4.68 4.50-6.20 MIL/uL Hemoglobin 13.2 L 14.0-18.0 g/dL Hematocrit 40.0 L 42-54 % Mean Corpuscular Volume 85.5 79-99 fL Mean Corpuscular Hemoglobin 28.2 27.0-33.0 pg Mean Corpuscular Hemoglobin Concent 33.0 32.0-36.0 g/dL Red Cell Distribution Width 14.6 11.0-15.5 % Platelet Count 227 130-400 K/uL Mean Platelet Volume 10.0 7.5-10.5 fL Immature Granulocyte % (Auto) 0.2 0-1 % Neutrophils (%) (Auto) 50.5 40.0-77.0 % Lymphocytes (%) (Auto) 24.7 21.0-51.0 % Monocytes (%) (Auto) 14.5 H 3.0-13.0 % Eosinophils (%) (Auto) 9.2 H 0.0-8.0 % Basophils (%) (Auto) 0.9 0.0-5.0 % Neutrophils # (Auto) 2.7 1.8-7.7 K/uL Lymphocytes # (Auto) 1.3 1.0-4.8 K/uL Monocytes # (Auto) 0.8 0.1-1.0 K/uL Eosinophils # (Auto) 0.49 0.00-0.70 K/uL Basophils # (Auto) 0.05 0.00-0.20 K/uL Absolute Immature Granulocyte (auto 0.01 0-1 K/uL Nucleated Red Blood Cells 0.0 0.0-0.19 % Prothrombin Time 10.9 9.6-11.6 SEC Prothromb Time International Ratio 1.03 0.85-1.15 Activated Partial Thromboplast Time 29.0 26.3-35.5 SEC Sodium Level 142 136-145 mmol/L Chloride Level 107 101-111 mmol/L Carbon Dioxide Level 26 21-32 mmol/L Blood Urea Nitrogen 10 7-18 mg/dL Creatinine 0.7 0.5-1.3 mg/dL Glomerular Filtration Rate Calc 102 >90 mL/min Random Glucose 107 H 70-105 mg/dL Total Calcium 8.8 8.5-10.1 mg/dL Magnesium Level 1.70 L 1.80-2.40 mg/dL ASSESSMENT: Right foot TMA stump nonhealing ulcer. Diabetes mellitus. Peripheral vascular disease. Coronary artery disease. PLAN: Continue vancomycin per pharmacy protocol. Continue cefepime. Continue metronidazole. Continue antidiabetics. Continue antiplatelets. Continue GI prophylaxis. Continue pain management. Tile Layer Helper is following patient and scheduled for a peripheral angiogram for today. This case was reviewed and discussed with my supervising physician and the above assessment and plan was formulated and agreed upon. ATTESTATION BY PHYSICIAN I have seen and examined the patient. I reviewed the documentation, medical decision making, and treatment plan as noted by the mid-level provider above. I agree with the findings and plan of care. BILLY WEBER MD, MIRTA L [facility] Nov 08, 2024 18:50
[2024-11-09] VITALS (8 sets, daily range): BP systolic 128–164; BP diastolic 69–97; PULSE 57–89; RESP 18; TEMP 97.5–98.6; O2SAT 100
[2024-11-09 04:20] LABS: IMMATURE GRANULOCYTE ABSOLUTE 0.01 K/uL (0-1); NUCLEATED RED BLOOD CELLS 0.0 % (0.0-0.19); PLATELET COUNT (AUTO) 215 K/uL (130-400); RED BLOOD CELL COUNT(AUTO) 4.69 MIL/uL (4.50-6.20); RED CELL DISTRIBUTION WIDTH 14.6 % (11.0-15.5); WHITE BLOOD COUNT (AUTO) 6.6 K/uL (4.8-10.8)
[2024-11-09 04:29] LABS: CREATININE 0.7 mg/dL (0.5-1.3); GLOMERULAR FILTR. RATE CALC 102.0 mL/min (>90); GLUCOSE,RANDOM 104.0 mg/dL (70-105); SODIUM SERUM 141.0 mmol/L (136-145); UREA NITROGEN, BLOOD 10.0 mg/dL (7-18)
--- NOTE | 2024-11-09 06:48 | PN ---
SUBJECTIVE: The patient is a very pleasant 64-year-old diabetic male. Afebrile, 98.1, pulse 80, respirations 18, blood pressure 164/77. White count 6.6, H and H 13 and 39.9. Platelets 215. Potassium 3.0. BUN and creatinine 10.7, glucose 105, magnesium 1.7. The patient is currently receiving IV vancomycin and metronidazole. The patient went to the landscape and yardwork laborer yesterday, had a diagnostic angiography, found to have multiple levels of occlusion throughout that right lower extremity, found to have a patent posterior tibial artery to his foot, had multiple levels of occlusion not amenable to catheter-based intervention, had occlusion of the anterior tibial and the peroneal arteries. Recommendations by Cardiology is that there may be some potential for a femoral to femoral, femoral to popliteal bypass and the Cardiothoracic Surgery Service has been consulted. REVIEW OF SYSTEMS: CONSTITUTIONAL: No chills. No fevers. No night sweats. No nausea, vomiting, no diarrhea. HEENT: No problems with eyes, ears, nose, or throat. CARDIOVASCULAR: He has peripheral vascular disease, has been evaluated by Cardiology Service, feel the patient may be a candidate for a fem-fem, femoral to popliteal bypass on the right side. He has occlusive disease throughout his right lower extremity, not amenable to catheter based intervention. GENITOURINARY: Normal renal function. GASTROINTESTINAL: No dysphagia. ENDOCRINE: Diabetes. PSYCHIATRIC: Denied any depression. MUSCULOSKELETAL: Transmetatarsal amputation on the right, MRI negative for osteomyelitis. The patient is receiving vancomycin and metronidazole. INTEGUMENTARY: Gangrenous fibronecrotic ulcer at the lateral aspect of the transmetatarsal amputation on the right, stable. OBJECTIVE: Examination today shows dried gangrenous necrosis of the soft tissue to the lateral aspect of the transmetatarsal amputation on the right, area is approximately 3 x 3 cm. He has a transmetatarsal amputation on the right. He has edema, erythema, associated cellulitis. No evidence of any abscess formation. ASSESSMENT: Right transmetatarsal amputation stump ulcer laterally with gangrenous necrosis status post transmetatarsal amputation. The patient has an MRI that was negative for osteomyelitis. He has been evaluated for a circulation status by the Cardiology Service who feel that the patient is not amenable to revascularization procedure via catheter-based intervention and may be a candidate for a femoral to femoral and femoral to popliteal bypass on that right side by the Cardiothoracic Surgery Service and the Cardiothoracic Surgery Service has been consulted. PLAN: We will await evaluation of the circulation status by the Cardiothoracic Surgery Service to see if the patient is a candidate for formal bypass to the right lower extremity. Continue with the vancomycin and the metronidazole. Continue with Betadine dressings of the right foot. Continue to follow the patient closely while in-house. TID: [id number] RECEIPT: [id number]
--- NOTE | 2024-11-09 08:01 | PN ---
[facility] Cardiology Progress Note CARDIOLOGY PROGRESS NOTE NOVEMBER 09, 2024 Problems: 1. Nonhealing ulcer with osteomyelitis in the proximal metatarsal stump 2. Peripheral arterial disease status post lithotripsy in overlapping stents with an Omnilink 8 x 59 mm and Everflex 7 x 60 mm in the left common and external iliac arteries July 2021 with subsequent left femoral right REED REPAIRER bypass August 2021 and right transmetatarsal amputation August 2021 3. CAD status post aortocoronary bypass graft surgery with a ESTRELLA graft to the LAD saphenous graft to the 2nd obtuse marginal artery saphenous graft to the 3rd obtuse marginal artery saphenous graft to the right posterior descending artery with endarterectomy September 2015 and LV ejection fraction of 50-55% by echo November 06, 2024 4. Hypertension 5. Dyslipidemia 6. Diabetes mellitus type 2 with circulatory disorders The patient underwent an aortic runoff study with Dr. Alcantara yesterday. Anatomy was not amenable to percutaneous intervention. Surgical opinion has been requested to see if he is a candidate for a fem-fem bypass and fem-pop. Morning blood pressure 160/70 rate is 80s the patient is afebrile. Hemoglobin 13 platelet count [id number]. Potassium 3.0 be supplemented BUN 10 creatinine 0.7. The patient continues on amlodipine5 mg daily atorvastatin clopidogrel Lovenox insulin scale lisinopril metoprolol tartrate potassium protocol and antibiotics. We will discontinue clopidogrel and start on aspirin pending surgical opinion. We will increase amlodipine to 10 mg daily for better blood pressure control. Catheterization access site shows no hematoma. RACIEL GEE MD Nov 09, 2024 08:01
[2024-11-09] MEDS: amLODIPine 5 MG TAB PO SCH (10:42)
--- NOTE | 2024-11-09 10:42 | PN ---
[facility] PROGRESS NOTE Date of Service: Nov 09, 2024 Time of Service: 10:42 SUBJECTIVE: 11/06/2024: Patient is seen in room 425, patient informed about his pain in right foot. Plan to continue the patient on fluids, patient's vitals are stable and labs are unremarkable. Cardiology informed about the plan to adjust the medications, repeat echocardiogram and plan for either redo bypass or AKA versus BKA. Blood cultures continue to be negative, Patient is asymptomatic otherwise, patient will be monitored closely. 11/07/2024: The patient was evaluated in Room 425 and reports manageable pain, controlled with 2 mg morphine every 6 hours as needed. He is scheduled for a right lower extremity peripheral angiogram, with possible intervention by Dr. Franklin tomorrow morning, and will be NPO from midnight in preparation. Based on his history of severe peripheral arterial disease, dual antiplatelet therapy (DAPT) and a statin will be continued per cardiology's recommendations. Additionally, the radiologist has revised the MRI foot report via addendum, now ruling out osteomyelitis, which was initially reported as positive. He remains on vancomycin, cefepime, and metronidazole, but wound cultures were deferred per Dr. Henriquez recommendation since there is no drainage and the wound is scabbing over. His blood pressure is elevated, with systolic readings persistently in the [id number], likely related to pain. We will increase lisinopril to 20 mg daily and monitor his vitals closely to ensure adequate control. Morning labs are unremarkable. We will maintain the current antibiotic regimen and coordinate follow-up with Infectious Disease, Podiatry, and Cardiology. The patient will be seen again after tomorrows procedure, with further assessment and plans outlined below. 11/08/2024: The patient was evaluated several times today, both before and after catheterization, and consistently denied any complaints. His systolic blood pressure remains elevated in the 160s-170s despite uptitrating lisinopril dose to 20mg and Metoprolol 20 mg BID, so Norvasc 5 mg will be added to his antihypertensive regimen. He underwent a peripheral angiogram, which showed that catheter-based intervention would not be beneficial; however, a fem-fem or fem- popliteal bypass may be a viable option due to calcified and small-diameter common femoral and popliteal arteries. Vascular surgery consult with Dr. Rodriguez was placed, and further recommendations are awaited. He is currently receiving vancomycin, Flagyl, and cefepime. The PICC line was noted to be leaking overnight and is scheduled for replacement. AM labs revealed potassium level of 3.2 and Magnesium of 1.70, both have been replaced, otherwise nonsignificant. We will continue current antibiotic regimen and appreciate cardiovascular surgeon Dr. Rodriguez's recommendations for the further management of PAD. We will follow infectious disease, podiatry and cardiology recommendations. Further assessment and plan as discussed below. 11/09/24: Patient was evaluated at the bedside on postprocedure day following a peripheral angiogram and reports no current complaint. He remains hypertensive with systolic blood pressure in 160s. The shearing machine feeder has a increase the Norvasc to 10 mg daily in addition to continuing lisinopril 20 mg. Recommendations from cardiovascular surgeon Dr. Reeves are still pending for possible fem-fem or fem-popliteal bypass. PICC line has been replaced. Morning labs revealed a potassium level of 3, which has been replated, as well as magnesium level of 1.7. Further assessment and management plans are outlined below REVIEW OF SYSTEMS CONSTITUTIONAL: Chills, denies fevers, or night sweats. No unintentional weight loss reported. NEUROLOGICAL: Denies headache, amaurosis fugax, motor weakness, sensory deficit, vertigo/spinning sensation, gait abnormalities, or tremors. ENT: No hearing loss, otalgia, otorrhea, rhinitis, rhinorrhea, hoarseness, or sore throat. CARDIOVASCULAR: Denies any exertional angina, dyspnea on exertion, orthopnea, paroxysmal nocturnal dyspnea, palpitations, life-threatening arrhythmias, claudication. PULMONARY: Denies any shortness of breath, cough, phlegm/sputum, hemoptysis, pleuritic chest pain. SLEEP: Denies morning headaches, daytime somnolence or napping. Denies difficulty falling asleep, staying asleep, waking from sleep. Denies knowledge of snoring. GASTROINTESTINAL: Denies any type of dysphagia to either liquids or solids. Denies nausea, vomiting, pyrosis, early satiety, abdominal pain, diarrhea, constipation, or changes in stool consistency or caliber. Denies coffee-ground emesis, hematemesis, hematochezia, or melanotic stools. GENITOURINARY: Denies frequency, urgency, nocturia, hematuria or incontinence (Storage/Irritative symptoms.) Low urinary stream, straining to void, urinary intermittency or hesitancy, splitting of the voiding stream, terminal dribbling. ENDOCRINOLOGIC: Denies polyuria, polydipsia, polyphagia or heat/cold intolerances. HEMATOLOGIC: Denies thrombophilia/previous clots, or coagulopathy/bleeding disorders. ONCOLOGIC: Denies personal history of malignancy. DERMATOLOGIC: Nonhealing diabetic foot ulcer of the right foot TMA site PSYCHIATRIC: Denies any suicidal or homicidal ideation. Denies hallucinations. PHYSICAL EXAM GENERAL APPEARANCE: The patient is awake, alert, and oriented, in no acute cardiopulmonary distress. NEUROLOGICAL: Cranial nerves II-XII grossly intact. Motor is 5/5 in bilateral upper and lower extremities proximal to distal. No sensory deficits. HEENT: Face is symmetric. Pupils are equal and reactive. Extraocular movements are intact. NECK: Supple. No JVD. No thyromegaly. No submental, submandibular, pre- /postauricular, occipital or supraclavicular lymphadenopathy. CHEST: Normal chest expansion. No Telemetry. LUNGS: Absence of any rales, rhonchi or any wheezing. CARDIOVASCULAR: Regular. S1 and S2 normal. No appreciable rubs, murmurs or gallops. ABDOMEN: Soft, nontender, and nondistended. There is no rebound, voluntary guarding, or rigidity. : Deferred. No Jacobson. EXTREMITIES: Nonhealing diabetic foot ulcer of the right foot TMA site, dressing present, Non-edematous and not cyanotic. No clubbing. SKIN: No skin breakdown. Vital Signs (last 8hr) Date Time Temp Pulse Resp B/P (MAP) Pulse Ox O2 Delivery O2 Flow Rate FiO2 11/09/24 08:00 98.2 57 18 162/84 100 Room Air 21 11/09/24 04:00 97.5 80 18 164/77 96 Room Air LABS: Laboratory: Test 11/09/24 05:36 11/09/24 04:00 11/08/24 15:24 11/08/24 05:01 Range/Units Whole Blood Glucose 105 70-110 MG/DL White Blood Count 6.6 4.8-10.8 K/uL Red Blood Count 4.69 4.50-6.20 MIL/uL Hemoglobin 13.3 L 14.0-18.0 g/dL Hematocrit 39.9 L 42-54 % Mean Corpuscular Volume 85.1 79-99 fL Mean Corpuscular Hemoglobin 28.4 27.0-33.0 pg Mean Corpuscular Hemoglobin Concent 33.3 32.0-36.0 g/dL Red Cell Distribution Width 14.6 11.0-15.5 % Platelet Count 215 130-400 K/uL Mean Platelet Volume 9.4 7.5-10.5 fL Immature Granulocyte % (Auto) 0.2 0-1 % Neutrophils (%) (Auto) 61.4 40.0-77.0 % Lymphocytes (%) (Auto) 16.9 L 21.0-51.0 % Monocytes (%) (Auto) 13.6 H 3.0-13.0 % Eosinophils (%) (Auto) 7.1 0.0-8.0 % Basophils (%) (Auto) 0.8 0.0-5.0 % Neutrophils # (Auto) 4.1 1.8-7.7 K/uL Lymphocytes # (Auto) 1.1 1.0-4.8 K/uL Monocytes # (Auto) 0.9 0.1-1.0 K/uL Eosinophils # (Auto) 0.47 0.00-0.70 K/uL Basophils # (Auto) 0.05 0.00-0.20 K/uL Absolute Immature Granulocyte (auto 0.01 0-1 K/uL Nucleated Red Blood Cells 0.0 0.0-0.19 % Sodium Level 141 136-145 mmol/L Potassium Level 3.0 *L 3.5-5.1 mmol/L Chloride Level 106 101-111 mmol/L Carbon Dioxide Level 26 21-32 mmol/L Blood Urea Nitrogen 10 7-18 mg/dL Creatinine 0.7 0.5-1.3 mg/dL Glomerular Filtration Rate Calc 102 >90 mL/min Random Glucose 104 70-105 mg/dL Total Calcium 8.4 L 8.5-10.1 mg/dL Magnesium Level 1.70 L 1.80-2.40 mg/dL Vancomycin Level Trough 12.8 10.0-20.0 UG/ML Prothrombin Time 10.9 9.6-11.6 SEC Prothromb Time International Ratio 1.03 0.85-1.15 Activated Partial Thromboplast Time 29.0 26.3-35.5 SEC Current Medications Medications (Trade) Dose Ordered Sig/Teto Route PRN Reason Start Time Stop Time Status Last Admin Dose Admin Acetaminophen (TYLenol 325MG TAB) 650 mg Q6H PRN PO MILD PAIN (1-3) 11/04/24 13:30 12/04/24 13:29 Amlodipine Besylate (NorvASC 5MG TAB) 5 mg DAILY PO 11/08/24 17:30 11/09/24 08:02 DC 11/08/24 17:59 5 MG Amlodipine Besylate (NorvASC 5MG TAB) 10 mg DAILY PO 11/09/24 09:00 12/09/24 08:59 Aspirin (Aspirin 81mg Ec Tab) 81 mg DAILY PO 11/05/24 15:00 12/05/24 14:59 11/08/24 09:00 81 MG Atorvastatin Calcium (LIPItor 40MG) 40 mg HS PO 11/04/24 21:00 12/04/24 20:59 11/08/24 20:29 40 MG Cefepime HCl (MAXipime 2 gm vial) 2 gm Q12H IVPB 11/04/24 13:30 11/14/24 13:29 11/09/24 00:31 2 GM Cilostazol (PLETal 100MG TAB) 100 mg DAILY PO 11/05/24 09:00 11/06/24 17:00 DC 11/06/24 08:21 100 MG Clopidogrel Bisulfate (plaVIX 75MG) 75 mg DAILY PO 11/05/24 16:00 11/09/24 08:02 DC 11/08/24 09:44 75 MG Dextrose (D50w) 50 ml AD PRN IV HYPOGLYCEMIA PROTOCOL 11/04/24 20:30 12/04/24 20:29 Enoxaparin Sodium (Lovenox) 30 mg DAILY SQ 11/05/24 09:00 12/05/24 08:59 11/07/24 10:08 30 MG Famotidine (Pepcid 20mg Vial) 20 mg BID IV 11/04/24 21:00 12/04/24 20:59 11/08/24 20:29 20 MG Gabapentin (NEURontin 300 MG CAP) 600 mg TID PO 11/04/24 21:00 12/04/24 20:59 11/08/24 20:29 600 MG Glucagon (Glucagon 1mg Kit) 1 mg AD PRN IM HYPOGLYCEMIA PROTOCOL 11/04/24 20:30 12/04/24 20:29 Hydralazine HCl (APRESOLine 20MG INJ) 10 mg Q6H PRN IV ADMINISTER FOR SBP > 170 11/04/24 13:30 11/05/24 10:51 DC 11/04/24 18:17 10 MG Insulin Glargine (LANtus 100 UNITS/ML 10 ML VIAL) 10 units HS SQ 11/04/24 21:00 12/04/24 20:59 11/08/24 20:30 10 UNITS Insulin Human Regular (humuLIN R 100 UNIT/ML 3ML) INSULIN SLIDING SCAL... ACHS SQ 11/04/24 16:30 12/04/24 16:29 Lisinopril (Prinivil 10mg) 10 mg DAILY PO 11/05/24 11:00 11/07/24 21:44 DC 11/07/24 10:07 10 MG Lisinopril (Prinivil 20mg) 20 mg DAILY PO 11/08/24 09:00 12/08/24 08:59 11/08/24 09:43 20 MG Lisinopril (Prinivil 5mg) 5 mg Q24H PO 11/04/24 13:30 11/05/24 10:51 DC 11/04/24 13:58 5 MG Magnesium Sulfate 50 ml @ 0 mls/hr PROTOCOL PRN IV NEEDED 11/05/24 12:30 12/05/24 12:29 11/09/24 05:54 25 MLS/HR Metoprolol Tartrate (loprESSOR) 25 mg BID PO 11/06/24 21:00 12/06/24 20:59 11/08/24 20:29 25 MG Metoprolol Tartrate (loprESSOR) 25 mg Q24H PO 11/04/24 13:30 11/06/24 15:22 DC 11/06/24 13:33 25 MG Metronidazole/ Sodium Chloride 100 ml @ 100 mls/hr Q8H IVPB 11/06/24 17:00 11/14/24 20:59 11/09/24 00:31 100 MLS/HR Metronidazole/ Sodium Chloride 100 ml @ 100 mls/hr TID IVPB 11/04/24 21:00 11/06/24 13:04 DC 11/06/24 08:21 100 MLS/HR Morphine Sulfate (morPHINE 2MG SYG) 2 mg Q6H PRN IVP SEVERE PAIN (7-10) 11/04/24 13:30 11/11/24 13:29 11/09/24 04:07 2 MG Ondansetron HCl (zoFRAN 4MG INJ) 4 mg Q6H PRN IVP NAUSEA/VOMITING 11/04/24 13:30 12/04/24 13:29 Pioglitazone HCl (Actos 15mg) 15 mg DAILY PO 11/05/24 09:00 12/05/24 08:59 11/08/24 09:44 15 MG Potassium Chloride 100 ml @ 100 mls/hr AD PRN IV POTASSIUM PROTOCOL 11/05/24 12:30 12/05/24 12:29 11/09/24 05:53 100 MLS/HR Potassium Chloride (K-Dur/Klor-Con 20meq) 20 meq AD PRN PO POTASSIUM PROTOCOL 11/05/24 12:30 12/05/24 12:29 11/09/24 05:54 20 MEQ Potassium Chloride (KCl 10% Elixir 20meq/15ml) 20 meq AD PRN PO POTASSIUM PROTOCOL 11/05/24 12:30 12/05/24 12:29 Sodium Chloride 1,000 ml @ 50 mls/hr Q20H IV 11/04/24 13:30 12/04/24 13:29 11/07/24 21:36 50 MLS/HR Sodium Chloride 1,000 ml @ 150 mls/hr Q6H40M IV 11/08/24 14:30 11/08/24 18:29 DC 11/08/24 15:22 150 MLS/HR Vancomycin HCl 250 ml @ 125 mls/hr Q12H IV 11/05/24 03:00 11/08/24 15:52 DC 11/08/24 03:22 125 MLS/HR Vancomycin HCl 250 ml @ 125 mls/hr Q12H IV 11/08/24 16:00 11/18/24 15:59 11/09/24 03:50 125 MLS/HR Vancomycin HCl (Vancomycin Protocol) 1 each AD IV 11/04/24 13:30 11/18/24 13:29 Vitamin B Complex (Vitamin B-12) 1,000 mcg DAILY PO 11/05/24 09:00 12/05/24 08:59 11/08/24 09:45 1,000 [facility] / RADIOLOGY: [address] [id number] IMAGING REPORT Signed PATIENT: ENMANUEL TURNER MR#: [id number] : 1960 SEX: M AGE: 64 LOCATION: 4DH ORDER 25 STATUS: ADM IN REPORT#: [id number] SERVICE 23 REASON: PICC LINE INSERTION ORDERING PHYSICIAN: BILLY WEBER MD PROCEDURE: CXR1VW - CHEST 1VW EXAM: CR Chest, 2 View. CLINICAL HISTORY: PICC LINE INSERTION COMPARISON: Radiograph dated November 05, 2024 FINDINGS: Right PICC terminates at the distal SVC. LUNGS: There is no mass, infiltrate, or acute pulmonary abnormality. PLEURAL SPACES: No pleural effusion or pneumothorax. MEDIASTINUM: Prior sternotomy. The cardiomediastinal silhouette is within normal limits. BONES: No acute osseous abnormality. IMPRESSION: 1. No acute findings. 2. Right PICC line terminates appropriately in distal SVC. /Unity DICTATED BY: THADDEUS TUBBS Jr., MD DATE: 11/08/241926 ELECTRONICALLY SIGNED BY: THADDEUS TUBBS Jr., MD DATE: 11/08/241926 [address] [id number] IMAGING REPORT Signed PATIENT: ENMANUEL TURNER MR#: [id number] : 1960 SEX: M AGE: 64 LOCATION: 4DH ORDER 25 STATUS: ADM IN REPORT#: [id number] SERVICE 23 REASON: PICC LINE INSERTION ORDERING PHYSICIAN: BILLY WEBER MD PROCEDURE: CXR1VW - CHEST 1VW EXAM: CR Chest, 2 View. CLINICAL HISTORY: PICC LINE INSERTION COMPARISON: Radiograph dated November 05, 2024 FINDINGS: Right PICC terminates at the distal SVC. LUNGS: There is no mass, infiltrate, or acute pulmonary abnormality. PLEURAL SPACES: No pleural effusion or pneumothorax. MEDIASTINUM: Prior sternotomy. The cardiomediastinal silhouette is within normal limits. BONES: No acute osseous abnormality. IMPRESSION: 1. No acute findings. 2. Right PICC line terminates appropriately in distal SVC. /[facility] DICTATED BY: THADDEUS TUBBS Jr., MD DATE: 11/08/241926 ELECTRONICALLY SIGNED BY: THADDEUS TUBBS Jr., MD DATE: 11/08/241926 [address] [id number] IMAGING REPORT Signed PATIENT: ENMANUEL TURNER MR#: [id number] : 1960 SEX: M AGE: 64 LOCATION: [facility] ORDER 21 STATUS: ADM IN REPORT#: [id number] SERVICE 17 REASON: occluded right femoral to CLAIMS CLERK bypass graft, non healing foot TMA wound with ORDERING PHYSICIAN: KRISTIAN CHURCH MD PROCEDURE: CTA ABDAOR - CT ANGIO ABD AORTA W RUNOFF CT ANGIO ABD AORTA W RUNOFF HISTORY: Occluded right femoral to posterior tibial artery bypass graft COMPARISON: Ultrasound from November 04, 2014 TECHNIQUE: CT angiography of the abdomen and pelvis was obtained using angiographic technique with maximum intensity projection reconstruction images. Patient was not given contrast through intravenous route. Oral contrast was not given. FINDINGS: No pleural effusion is seen bilaterally. There is no evidence of parenchymal disease or pulmonary nodule of the visualized lower lungs. Degenerative changes of the thoracolumbar spine are present. The heart is not enlarged. The liver, spleen, adrenal glands and pancreas are unremarkable. There is no evidence of hydronephrosis bilaterally. No evidence of renal stone is seen. Fecal material is seen in the colon. There are normal size retroperitoneal and mesenteric lymph nodes. No ascites is seen. Atherosclerotic changes are present. There is diffuse atherosclerotic disease. No evidence of abdominal aortic aneurysm is seen. The celiac, superior mesenteric and bilateral renal arteries are grossly patent. The visualized portion of the left iliac and femoral arterial systems are also grossly patent. Multiple short segment high-grade stenosis are noted in the right iliac artery with flow discontinuity. Flow in the right femoral posterior tibial stent cannot be fully evaluated. However, right posterior tibial artery is patent. The left anterior tibial, left renal arteries are grossly patent. There appears be occlusion of the right anterior tibial and right peroneal artery and left posterior tibial artery. Pelvic sidewalls are symmetric bilaterally. Bladder is well distended without wall thickening. IMPRESSION: 1. Multiple short segment high-grade stenosis are noted in the right iliac artery with flow discontinuity. Flow in the right femoral posterior tibial stent cannot be fully evaluated. However, right posterior tibial artery is patent. The left anterior tibial, left renal arteries are grossly patent. There appears be occlusion of the right anterior tibial and right peroneal artery and left posterior tibial artery. CT was performed with one or more following dose reduction techniques: automated exposure control, adjustment of the mA and kv according to patient's size, or use of a iterative reconstruction technique. DICTATED BY: AMANDA TUBBS MD DATE: 11/05/24 1531 ELECTRONICALLY SIGNED BY: AMANDA TUBBS MD DATE: 11/09/24 1605 RUN DATE: 11/09/24 [facility] [address] RUN TIME: [id number] [place] [address] Department of Laboratories [facility] # [id number] Surveillance Sensor Operator: Rafy Ayala DO Specimen Report PATIENT: ENMANUEL TURNER ACCT: [id number] LOC: [facility] U: [id number] AGE/SX: 64/M ROOM: [facility] RE11/04/[address]: KRISTIAN CHURCH MD : 1960 BED: 1 DIS: STATUS: ADM IN TLOC: SPEC: [id number] ZAYDA: 11/04/24-1315 STATUS: COMP REQ: [id number] RECD: 11/04/[address]: KRISTIAN CHURCH MD SOURCE: BLOOD ENTR: 11/04/24-[address]: BILLY WEBER MD SPDC: SAMRA PADRON DPM, JAMES R MD [facility] ORDERED: BLOOD CULTURE COMMENTS: What is the Source? BLOOD Procedure Result Awa Date-Time BLOOD CULT Final 11/09/24-1323 NO GROWTH AFTER 5 DAYS ABDOMINAL AORTOGRAM WITH PELVIC RUNOFF, RIGHT LOWER EXTREMITY DIGITAL SUBTRACTION SERIES INDICATION: LIMB SALVAGE TECHNIQUE: Patient was brought to the lab in a fasting state after informed consent and sedated with 1 mg Versed and 50 mcg fentanyl. Under local anesthesia with 1% lidocaine using fluoroscopic and ultrasound guidance with micropuncture technique the left common femoral artery was punctured anteriorly and a six Telugu sheath was inserted. An Omni flush was positioned in the distal abdominal aorta and aortogram with pelvic runoff was obtained by digital subtraction. The catheter was then repositioned in the right internal iliac over a Glidewire and sequential digital subtraction angiogram were obtained from the iliac bifurcation to the foot. At the conclusion of the procedure the patient was treated with 50 mg Trandate for blood pressure control and hemostasis was obtained by use of a Mynx device. Excellent hemostasis was obtained and the patient was transferred from the lab in stable condition. He received 80 mL contrast. Results: There is extensive calcification in the distal abdominal aorta but it is not significantly narrowed. The left common and external iliac are stented and the stent remains patent. The left profunda is occluded at its origin and does not reconstitute in the proximal thigh. The proximal SFA and common femoral are heavily calcified but patent. The right common iliac is calcified and narrowed by 30-40%. The right internal iliac supplies collateral to the right common femoral, but the right external iliac is totally occluded throughout its length. The right superficial femoral is totally occluded within 15 mm of its origin and remains so to the distal popliteal. The profunda is occluded mid thigh but does supplies some collateral to the distal popliteal. The popliteal is occluded through its proximal half but is patent in its distal half, and is heavily calcified. The right anterior tibial is notable for a flush ostial occlusion which extends to midway between the calf and ankle with minimal reconstitution through collaterals from the peroneal at the ankle. The KAROL is then patent to the level of the dorsalis pedis but does not supply the arch and there has been a transmetatarsal amputation. The right tibioperoneal is calcified but patent. The right peroneal is 1.2 mm diameter but patent to the ankle and supplies collateral to the distal KAROL as mentioned. The right posterior tibial is notable for a mid calf tortuosity with clips which appears to be from tenting from a previous bypass which is occluded. The vessel itself, however, is patent all the way into the foot and under the arch. Conclusions: No catheter based intervention would be helpful in this case, but there may be some potential for a fem-fem/fem-popliteal bypass. The common femoral and popliteal are calcified and relatively small diameter, but this should be shown to the surgeons as a potential candidate. WILLIAN FRANKLIN MD Nov 08, 2024 14:36 Electronically Signed by: WILLIAN FRANKLIN MD11/08/24 1436 Electronically Co-Signed by: ASSESSMENT: Nonhealing diabetic foot wound involving the lateral aspect of the right foot TMA site with MRI negative for osteomyelitis, POA History of severe peripheral arterial disease involving the right lower extremity with prior history of femoral to popliteal artery bypass surgery on 08/10/2021, POA History of left lower extremity peripheral arterial disease, POA Underlying history of right foot transmetatarsal amputation in 2021, POA Hypokalemia Hypomagnesemia History of type 2 diabetes mellitus, POA Hypertension, POA Hyperlipidemia, POA Obesity, POA History of coronary artery disease with prior history of coronary artery bypass grafting in 2015, POA H/o tobacco abuse POA Carotid artery disease, 50-69% OCHOA and LICA, August 2023 PLAN: The patient remains admitted on the medical surgical floor under telemetry monitoring. Nonhealing diabetic foot wound involving the lateral aspect of the right foot TMA site with MRI negative for osteomyelitis, POA Underlying history of right foot transmetatarsal amputation in 2021, POA * Continue on broad-spectrum antibiotics with vancomycin/cefepime/Flagyl * Continue with 0.9%Nacl 50 cc/hour today and reevaluate tomorrow. * Follow up wound cultures obtained from [facility]. His recommendations are to continue IV antibiotic therapy and provide local wound care. * Wound cultures were not collected during this hospitalization and were deferred per Dr. Henriquez recommendation since there is no drainage and the wound is scabbing over. * Blood culture showed no growth after 5 days. * PICC line has been replaced yesterday since it was leaking, given the negative MRI for osteomyelitis, we will follow Infectious Diseases recommendations regarding whether to continue IV antibiotics or transition to oral therapy after discharge, tailored to culture results and clinical response. History of severe peripheral arterial disease involving the right lower extremity with prior history of femoral to popliteal artery bypass surgery on 08/10/2021, POA History of left lower extremity peripheral arterial disease, POA * Peripheral angiogram (11/08/24) showed that catheter-based intervention would not be beneficial; however, a fem-fem or fem-popliteal bypass may be a viable option due to calcified and small-diameter common femoral and popliteal arteries. Vascular surgery consult with Dr. Rodriguez was placed, and further recommendations are awaited * Arterial US (11/04/24) showed no flow in proximal and distal portion of right femoral artery, occlusion of right femoral posterior tibial artery bypass graft. CT Angio aorta with peripheral runoff (11/04/24) showed multiple short segment high-grade stenosis in right iliac artery with flow discontinuity, patent right posterior tibial artery, left anterior tibial and left renal artery. Occlusion of right anterior tibial and right peroneal artery and left posterior tibial artery. * Continue with the following: aspirin 81 mg daily, and Plavix 75 mg daily. Hypokalemia * AM labs showed K level of 3.0. * Replace as needed per protocol * Repeat at 1700 today Hypomagnesemia * Recent MG is 1.7 * Replace per protocol as needed History of type 2 diabetes mellitus, POA * Recent blood glucose level is 143, Continue on sliding scale insulin a.c. and HS, and Lantus 10 units bedtime * Continue with home dose of Actos * Hypoglycemia protocol Hypertension, POA * Recent blood pressure readin/84. Due to persistent hypertension, Norvasc 5 mg was increased to 10 mg by the shearing machine feeder. The patient is now on Lisinopril 20 mg daily, Metoprolol 25 mg BID, and Norvasc 10 mg daily. * Closely monitor vitals, Q4 * Avoid PRN antihypertensives Hyperlipidemia, POA * Continue with Atorvastatin 40 mg daily. DVT Prophylaxis: Continue with Lovenox 30 mg subcue daily GI Prophylaxis: Continue with Famotidine 20 mg IV BID. AM Labs: CBC, BMP, Magnesium Discharge disposition: When ready for discharge, Possible to [facility], we have requested assistance with case management for authorization. Further orders per hospitalization course. ATTESTATION BY PHYSICIAN I have seen and examined the patient. I reviewed the documentation, medical decision making, and treatment plan as noted by the resident provider above. I agree with the findings and plan of care. Amadou Cruz MD, MANALI MD Nov 09, 2024 10:42
--- NOTE | 2024-11-09 22:03 | PN ---
INFECTIOUS DISEASE PROGRESS NOTE Date of Service: Nov 09, 2024 SUBJECTIVE: This is a 64-year-old patient who was seen and examined at bedside in room 425. Patient is awake, alert and oriented x3. Patient is status post peripheral angiogram day # 1 with abnormal findings and recommendation for fem-pop bypass evaluation. Patient remaining afebrile, temperature is 98.2. Denying nausea and vomiting. Will continue on vancomycin, cefepime and metronidazole. No other issues reported by nursing. PHYSICAL EXAM EYES: Anicteric. Pupils equal and reactive. HENT: No oral thrush seen, moist Oral mucosa. NECK: Supple, no JVD or thyromegaly. LUNGS: Good air entry. No rales, no rhonchi. CARDIOVASCULAR: S1, S2 regular. No murmur heard. ABDOMEN: Soft, non tender, bowel sounds present, no organomegaly. CENTRAL NERVOUS SYSTEM: Awake, alert, oriented x 3. SKIN: No rashes, no swelling. LYMPHATICS: No peripheral lymphadenopathy. MUSCULOSKELETAL: No joint swelling, erythema or tenderness. EXTREMITIES: No cyanosis or clubbing. Right foot TMA stump nonhealing ulcer. BACK: No deformity, no pressure ulcer. GENITOURINARY: No dysuria or hematuria. Vital Sign (Last 12 Hours) 11/09/24 11/09/24 11/09/24 11/09/24 10:44 12:00 16:00 20:00 Temp 98.6 98.4 97.9 Pulse 86 81 85 Resp 18 18 18 B/P (MAP) 164/97 153/69 128/86 Pulse Ox 100 97 98 94 O2 Delivery Room Air* Room Air Room Air Room Air O2 Flow Rate 0 FiO2 21 21 21 Intake & Output (last 24hrs) 11/08/24 11/08/24 11/09/24 15:00 23:00 07:00 Intake Total 0 ml 1112.0 ml Output Total 100 ml 1000 ml 1250 ml Balance -100 ml 112.0 ml -1250 ml LABS: Laboratory: Test 11/09/24 20:07 11/09/24 16:55 11/09/24 04:00 11/08/24 15:24 Range/Units Whole Blood Glucose 143 H 70-110 MG/DL Potassium Level 3.8 3.5-5.1 mmol/L White Blood Count 6.6 4.8-10.8 K/uL Red Blood Count 4.69 4.50-6.20 MIL/uL Hemoglobin 13.3 L 14.0-18.0 g/dL Hematocrit 39.9 L 42-54 % Mean Corpuscular Volume 85.1 79-99 fL Mean Corpuscular Hemoglobin 28.4 27.0-33.0 pg Mean Corpuscular Hemoglobin Concent 33.3 32.0-36.0 g/dL Red Cell Distribution Width 14.6 11.0-15.5 % Platelet Count 215 130-400 K/uL Mean Platelet Volume 9.4 7.5-10.5 fL Immature Granulocyte % (Auto) 0.2 0-1 % Neutrophils (%) (Auto) 61.4 40.0-77.0 % Lymphocytes (%) (Auto) 16.9 L 21.0-51.0 % Monocytes (%) (Auto) 13.6 H 3.0-13.0 % Eosinophils (%) (Auto) 7.1 0.0-8.0 % Basophils (%) (Auto) 0.8 0.0-5.0 % Neutrophils # (Auto) 4.1 1.8-7.7 K/uL Lymphocytes # (Auto) 1.1 1.0-4.8 K/uL Monocytes # (Auto) 0.9 0.1-1.0 K/uL Eosinophils # (Auto) 0.47 0.00-0.70 K/uL Basophils # (Auto) 0.05 0.00-0.20 K/uL Absolute Immature Granulocyte (auto 0.01 0-1 K/uL Nucleated Red Blood Cells 0.0 0.0-0.19 % Sodium Level 141 136-145 mmol/L Chloride Level 106 101-111 mmol/L Carbon Dioxide Level 26 21-32 mmol/L Blood Urea Nitrogen 10 7-18 mg/dL Creatinine 0.7 0.5-1.3 mg/dL Glomerular Filtration Rate Calc 102 >90 mL/min Random Glucose 104 70-105 mg/dL Total Calcium 8.4 L 8.5-10.1 mg/dL Magnesium Level 1.70 L 1.80-2.40 mg/dL Vancomycin Level Trough 12.8 10.0-20.0 UG/ML Test 11/08/24 05:01 Range/Units Prothrombin Time 10.9 9.6-11.6 SEC Prothromb Time International Ratio 1.03 0.85-1.15 Activated Partial Thromboplast Time 29.0 26.3-35.5 SEC ASSESSMENT: Right foot TMA stump nonhealing ulcer. Peripheral vascular disease, status post peripheral angiogram with abnormal findings. Coronary artery disease. Diabetes mellitus. Hypokalemia PLAN: Continue vancomycin per pharmacy protocol. Continue cefepime. Continue metronidazole. Continue antidiabetics. Continue antiplatelets. Continue GI prophylaxis. Continue pain management. This case was reviewed and discussed with my supervising physician and the above assessment and plan was formulated and agreed upon. ATTESTATION BY PHYSICIAN I have seen and examined the patient. I reviewed the documentation, medical decision making, and treatment plan as noted by the mid-level provider above. I agree with the findings and plan of care. BILLY WBEER MD, [facility] Nov 09, 2024 22:03
[2024-11-10] VITALS: BP 138/76; PULSE 87; RESP 18; TEMP 98.1
[2024-11-10 04:00] VITALS: BP 141/71; PULSE 84; RESP 18; TEMP 98.1
[2024-11-10] MEDS: HYDROcodone/APAP 5/325 1 TAB TABLET PO PRN (04:52)
[2024-11-10 05:19] LABS: IMMATURE GRANULOCYTE ABSOLUTE 0.01 K/uL (0-1); NUCLEATED RED BLOOD CELLS 0.0 % (0.0-0.19); PLATELET COUNT (AUTO) 229 K/uL (130-400); RED BLOOD CELL COUNT(AUTO) 4.71 MIL/uL (4.50-6.20); RED CELL DISTRIBUTION WIDTH 14.7 % (11.0-15.5); WHITE BLOOD COUNT (AUTO) 5.9 K/uL (4.8-10.8)
[2024-11-10 05:37] LABS: CREATININE 0.7 mg/dL (0.5-1.3); GLOMERULAR FILTR. RATE CALC 102.0 mL/min (>90); GLUCOSE,RANDOM 128.0 mg/dL (70-105); SODIUM SERUM 140.0 mmol/L (136-145); UREA NITROGEN, BLOOD 12.0 mg/dL (7-18)
--- NOTE | 2024-11-10 06:37 | PN ---
SUBJECTIVE: The patient is a very pleasant 64-year-old diabetic, Latin-Irish male, not a candidate for revascularization per catheter-based intervention per Cardiology. Dr. Reeves has been consulted for a plzsdbi-is-jhlmexl and tnsvjfk-nt-qiikpxuay bypass. Consult is pending. The patient is without complaints of pain. He is remaining afebrile 98.1, pulse 86, respirations 18, blood pressure 141/71. He has a white count that is within normal limits 5.9, H and H 13.4 and 40.6, platelets 229. Potassium is 4.0, blood sugar 124. He has had an MRI of the right foot, MRI negative for osteomyelitis. REVIEW OF SYSTEMS: Unremarkable. MUSCULOSKELETAL: He has a transmetatarsal amputation on the right. MRI negative for osteomyelitis. Receiving vancomycin and metronidazole. INTEGUMENT: He has a fibrotic dry eschar to the lateral aspect of the right transmetatarsal amputation, it is stable. It is 3 x 3 cm. No abscess or ascending cellulitis. OBJECTIVE: His examination today shows nonpalpable pedal pulses on the right. He has dry eschar to the lateral aspect of the right foot, 3 x 3 cm. He has a transmetatarsal amputation on the right. ASSESSMENT: Transmetatarsal amputation on the right laterally with dry gangrenous necrosis to the soft tissues. MRI negative for osteomyelitis. Cardiology Service feel that the patient is not amenable to revascularization procedure on the right via a catheter-based intervention and may be a candidate for jdtwtfy-bc-zqmozrh and cwbeeje-fp-mxjrqerti bypass on the right side by the Cardiothoracic Surgery Service. We are awaiting the consult by the Cardiothoracic Surgery Service. PLAN: Awaiting evaluation of his circulation status by the Cardiothoracic Surgery Service. Continue with Betadine dressings. Continue with vancomycin and metronidazole. Continue to follow the patient closely while in-house. TID: [id number] RECEIPT: [id number]
[2024-11-10 08:00] VITALS: BP 137/97; PULSE 83; RESP 18; TEMP 99.1; O2SAT 98
--- NOTE | 2024-11-10 08:03 | PN ---
[facility] Cardiology Progress Note Cardiology progress note dictated for Raciel Gee MD Date of service 11/10/2024 Problems: 1. Nonhealing ulcer with osteomyelitis in the proximal metatarsal stump 2. Peripheral arterial disease status post lithotripsy in overlapping stents with an Omnilink 8 x 59 mm and Everflex 7 x 60 mm in the left common and external iliac arteries July 2021 with subsequent left femoral right TOBACCO WEIGHER bypass August 2021 and right transmetatarsal amputation August 2021 3. CAD status post aortocoronary bypass graft surgery with a ESTRELLA graft to the LAD saphenous graft to the 2nd obtuse marginal artery saphenous graft to the 3rd obtuse marginal artery saphenous graft to the right posterior descending artery with endarterectomy September 2015 and LV ejection fraction of 50-55% by echo November 06, 2024 4. Hypertension 5. Dyslipidemia 6. Diabetes mellitus type 2 with circulatory disorders Assessment/plan: 64-year-old male presented to the emergency department with nonhealing wound of the right lower extremity. Arterial Doppler revealed right fem TOBACCO WEIGHER graft occlusion. He underwent aortic runoff study with Dr. Walls and was on not amenable to percutaneous intervention. Surgical opinion was requested to see if he is a candidate for a fem-fem bypass and fem-pop. This morning the patient is doing well sitting up eating breakfast in good spirits. He is afebrile has a pulse of 84 beats per minute and regular lungs-clear to auscultation blood pressure 141/71. Blood work today with a hemoglobin of 13.4 hematocrit of 40.6 white blood cells 5.9 and platelets of 229. Basic metabolic panel with a sodium of 140, potassium 4.0 BUN of 12 and a creatinine of 0.7 with a normal GFR and a magnesium of 1.90. Medications currently include amlodipine 10 mg daily, lisinopril 20 mg daily, metoprolol tartrate 25 mg p.o. b.i.d. and aspirin 81 mg daily along with IV antibiotics. Clopidogrel was placed on hold yesterday. Further recommendations once patient has been evaluated by CT surgeon. ATTESTATION BY PHYSICIAN I have seen and examined the patient. I reviewed the documentation, medical decision making, and treatment plan as noted by the mid-level provider above. I agree with the findings and plan of care. RACIEL GEE MD, [facility] Nov 10, 2024 08:03 RACIEL GEE MD Nov 10, 2024 08:19
--- NOTE | 2024-11-10 10:33 | PN ---
[facility] PROGRESS NOTE Date of Service: Nov 10, 2024 Time of Service: 10:33 SUBJECTIVE: 11/06/2024: Patient is seen in room 425, patient informed about his pain in right foot. Plan to continue the patient on fluids, patient's vitals are stable and labs are unremarkable. Cardiology informed about the plan to adjust the medications, repeat echocardiogram and plan for either redo bypass or AKA versus BKA. Blood cultures continue to be negative, Patient is asymptomatic otherwise, patient will be monitored closely. 11/07/2024: The patient was evaluated in Room 425 and reports manageable pain, controlled with 2 mg morphine every 6 hours as needed. He is scheduled for a right lower extremity peripheral angiogram, with possible intervention by Dr. Walls tomorrow morning, and will be NPO from midnight in preparation. Based on his history of severe peripheral arterial disease, dual antiplatelet therapy (DAPT) and a statin will be continued per cardiology's recommendations. Additionally, the radiologist has revised the MRI foot report via addendum, now ruling out osteomyelitis, which was initially reported as positive. He remains on vancomycin, cefepime, and metronidazole, but wound cultures were deferred per Dr. Henriquez recommendation since there is no drainage and the wound is scabbing over. His blood pressure is elevated, with systolic readings persistently in the [id number], likely related to pain. We will increase lisinopril to 20 mg daily and monitor his vitals closely to ensure adequate control. Morning labs are unremarkable. We will maintain the current antibiotic regimen and coordinate follow-up with Infectious Disease, Podiatry, and Cardiology. The patient will be seen again after tomorrows procedure, with further assessment and plans outlined below. 11/08/2024: The patient was evaluated several times today, both before and after catheterization, and consistently denied any complaints. His systolic blood pressure remains elevated in the 160s-170s despite uptitrating lisinopril dose to 20mg and Metoprolol 20 mg BID, so Norvasc 5 mg will be added to his antihypertensive regimen. He underwent a peripheral angiogram, which showed that catheter-based intervention would not be beneficial; however, a fem-fem or fem- popliteal bypass may be a viable option due to calcified and small-diameter common femoral and popliteal arteries. Vascular surgery consult with Dr. Rodriguez was placed, and further recommendations are awaited. He is currently receiving vancomycin, Flagyl, and cefepime. The PICC line was noted to be leaking overnight and is scheduled for replacement. AM labs revealed potassium level of 3.2 and Magnesium of 1.70, both have been replaced, otherwise nonsignificant. We will continue current antibiotic regimen and appreciate cardiovascular surgeon Dr. Rodriguez's recommendations for the further management of PAD. We will follow infectious disease, podiatry and cardiology recommendations. Further assessment and plan as discussed below. 11/09/24: Patient was evaluated at the bedside on postprocedure day following a peripheral angiogram and reports no current complaint. He remains hypertensive with systolic blood pressure in 160s. The risk control director has a increase the Norvasc to 10 mg daily in addition to continuing lisinopril 20 mg. Recommendations from cardiovascular surgeon Dr. Reeves are still pending for possible fem-fem or fem-popliteal bypass. PICC line has been replaced. Morning labs revealed a potassium level of 3, which has been replated, as well as magnesium level of 1.7. Further assessment and management plans are outlined below REVIEW OF SYSTEMS CONSTITUTIONAL: Chills, denies fevers, or night sweats. No unintentional weight loss reported. NEUROLOGICAL: Denies headache, amaurosis fugax, motor weakness, sensory deficit, vertigo/spinning sensation, gait abnormalities, or tremors. ENT: No hearing loss, otalgia, otorrhea, rhinitis, rhinorrhea, hoarseness, or sore throat. CARDIOVASCULAR: Denies any exertional angina, dyspnea on exertion, orthopnea, paroxysmal nocturnal dyspnea, palpitations, life-threatening arrhythmias, claudication. PULMONARY: Denies any shortness of breath, cough, phlegm/sputum, hemoptysis, pleuritic chest pain. SLEEP: Denies morning headaches, daytime somnolence or napping. Denies difficulty falling asleep, staying asleep, waking from sleep. Denies knowledge of snoring. GASTROINTESTINAL: Denies any type of dysphagia to either liquids or solids. Denies nausea, vomiting, pyrosis, early satiety, abdominal pain, diarrhea, constipation, or changes in stool consistency or caliber. Denies coffee-ground emesis, hematemesis, hematochezia, or melanotic stools. GENITOURINARY: Denies frequency, urgency, nocturia, hematuria or incontinence (Storage/Irritative symptoms.) Low urinary stream, straining to void, urinary intermittency or hesitancy, splitting of the voiding stream, terminal dribbling. ENDOCRINOLOGIC: Denies polyuria, polydipsia, polyphagia or heat/cold intolerances. HEMATOLOGIC: Denies thrombophilia/previous clots, or coagulopathy/bleeding disorders. ONCOLOGIC: Denies personal history of malignancy. DERMATOLOGIC: Nonhealing diabetic foot ulcer of the right foot TMA site PSYCHIATRIC: Denies any suicidal or homicidal ideation. Denies hallucinations. PHYSICAL EXAM GENERAL APPEARANCE: The patient is awake, alert, and oriented, in no acute cardiopulmonary distress. NEUROLOGICAL: Cranial nerves II-XII grossly intact. Motor is 5/5 in bilateral upper and lower extremities proximal to distal. No sensory deficits. HEENT: Face is symmetric. Pupils are equal and reactive. Extraocular movements are intact. NECK: Supple. No JVD. No thyromegaly. No submental, submandibular, pre- /postauricular, occipital or supraclavicular lymphadenopathy. CHEST: Normal chest expansion. No Telemetry. LUNGS: Absence of any rales, rhonchi or any wheezing. CARDIOVASCULAR: Regular. S1 and S2 normal. No appreciable rubs, murmurs or gallops. ABDOMEN: Soft, nontender, and nondistended. There is no rebound, voluntary guarding, or rigidity. : Deferred. No Jacobson. EXTREMITIES: Nonhealing diabetic foot ulcer of the right foot TMA site, dressing present, Non-edematous and not cyanotic. No clubbing. SKIN: No skin breakdown. Vital Signs (last 8hr) Date Time Temp Pulse Resp B/P (MAP) Pulse Ox O2 Delivery O2 Flow Rate FiO2 11/10/24 08:00 99.1 83 18 137/97 98 Room Air 11/10/24 04:00 98.1 84 18 141/71 97 Room Air LABS: Laboratory: Test 11/10/24 05:19 11/10/24 04:55 11/08/24 15:24 Range/Units Whole Blood Glucose 124 H 70-110 MG/DL White Blood Count 5.9 4.8-10.8 K/uL Red Blood Count 4.71 4.50-6.20 MIL/uL Hemoglobin 13.4 L 14.0-18.0 g/dL Hematocrit 40.6 L 42-54 % Mean Corpuscular Volume 86.2 79-99 fL Mean Corpuscular Hemoglobin 28.5 27.0-33.0 pg Mean Corpuscular Hemoglobin Concent 33.0 32.0-36.0 g/dL Red Cell Distribution Width 14.7 11.0-15.5 % Platelet Count 229 130-400 K/uL Mean Platelet Volume 9.7 7.5-10.5 fL Immature Granulocyte % (Auto) 0.2 0-1 % Neutrophils (%) (Auto) 53.8 40.0-77.0 % Lymphocytes (%) (Auto) 22.2 21.0-51.0 % Monocytes (%) (Auto) 13.6 H 3.0-13.0 % Eosinophils (%) (Auto) 9.5 H 0.0-8.0 % Basophils (%) (Auto) 0.7 0.0-5.0 % Neutrophils # (Auto) 3.2 1.8-7.7 K/uL Lymphocytes # (Auto) 1.3 1.0-4.8 K/uL Monocytes # (Auto) 0.8 0.1-1.0 K/uL Eosinophils # (Auto) 0.56 0.00-0.70 K/uL Basophils # (Auto) 0.04 0.00-0.20 K/uL Absolute Immature Granulocyte (auto 0.01 0-1 K/uL Nucleated Red Blood Cells 0.0 0.0-0.19 % Sodium Level 140 136-145 mmol/L Potassium Level 4.0 3.5-5.1 mmol/L Chloride Level 107 101-111 mmol/L Carbon Dioxide Level 26 21-32 mmol/L Blood Urea Nitrogen 12 7-18 mg/dL Creatinine 0.7 0.5-1.3 mg/dL Glomerular Filtration Rate Calc 102 >90 mL/min Random Glucose 128 H 70-105 mg/dL Total Calcium 8.6 8.5-10.1 mg/dL Magnesium Level 1.90 1.80-2.40 mg/dL Vancomycin Level Trough 12.8 10.0-20.0 UG/ML Current Medications Medications (Trade) Dose Ordered Sig/Teto Route PRN Reason Start Time Stop Time Status Last Admin Dose Admin Acetaminophen (TYLenol 325MG TAB) 650 mg Q6H PRN PO MILD PAIN (1-3) 11/04/24 13:30 12/04/24 13:29 11/09/24 22:28 650 MG Acetaminophen/ Hydrocodone Bitart (NORco 5/325MG) 1 tab Q6H PRN PO MODERATE PAIN (4-6) 11/10/24 05:00 11/15/24 04:59 11/10/24 04:52 1 TAB Amlodipine Besylate (NorvASC 5MG TAB) 5 mg DAILY PO 11/08/24 17:30 11/09/24 08:02 DC 11/08/24 17:59 5 MG Amlodipine Besylate (NorvASC 5MG TAB) 10 mg DAILY PO 11/09/24 09:00 12/09/24 08:59 11/10/24 08:15 10 MG Aspirin (Aspirin 81mg Ec Tab) 81 mg DAILY PO 11/05/24 15:00 12/05/24 14:59 11/10/24 08:15 81 MG Atorvastatin Calcium (LIPItor 40MG) 40 mg HS PO 11/04/24 21:00 12/04/24 20:59 11/09/24 10:43 40 MG Cefepime HCl (MAXipime 2 gm vial) 2 gm Q12H IVPB 11/04/24 13:30 11/14/24 13:29 11/10/24 03:00 2 GM Cilostazol (PLETal 100MG TAB) 100 mg DAILY PO 11/05/24 09:00 11/06/24 17:00 DC 11/06/24 08:21 100 MG Clopidogrel Bisulfate (plaVIX 75MG) 75 mg DAILY PO 11/05/24 16:00 11/09/24 08:02 DC 11/08/24 09:44 75 MG Dextrose (D50w) 50 ml AD PRN IV HYPOGLYCEMIA PROTOCOL 11/04/24 20:30 12/04/24 20:29 Enoxaparin Sodium (Lovenox) 30 mg DAILY SQ 11/05/24 09:00 12/05/24 08:59 11/10/24 08:16 30 MG Famotidine (Pepcid 20mg Vial) 20 mg BID IV 11/04/24 21:00 12/04/24 20:59 11/10/24 08:15 20 MG Gabapentin (NEURontin 300 MG CAP) 600 mg TID PO 11/04/24 21:00 12/04/24 20:59 11/10/24 08:15 600 MG Glucagon (Glucagon 1mg Kit) 1 mg AD PRN IM HYPOGLYCEMIA PROTOCOL 11/04/24 20:30 12/04/24 20:29 Hydralazine HCl (APRESOLine 20MG INJ) 10 mg Q6H PRN IV ADMINISTER FOR SBP > 170 11/04/24 13:30 11/05/24 10:51 DC 11/04/24 18:17 10 MG Insulin Glargine (LANtus 100 UNITS/ML 10 ML VIAL) 10 units HS SQ 11/04/24 21:00 12/04/24 20:59 11/09/24 21:43 10 UNITS Insulin Human Regular (humuLIN R 100 UNIT/ML 3ML) INSULIN SLIDING SCAL... ACHS SQ 11/04/24 16:30 12/04/24 16:29 Lisinopril (Prinivil 10mg) 10 mg DAILY PO 11/05/24 11:00 11/07/24 21:44 DC 11/07/24 10:07 10 MG Lisinopril (Prinivil 20mg) 20 mg DAILY PO 11/08/24 09:00 12/08/24 08:59 11/10/24 08:15 20 MG Lisinopril (Prinivil 5mg) 5 mg Q24H PO 11/04/24 13:30 11/05/24 10:51 DC 11/04/24 13:58 5 MG Magnesium Sulfate 50 ml @ 0 mls/hr PROTOCOL PRN IV NEEDED 11/05/24 12:30 12/05/24 12:29 11/09/24 05:54 25 MLS/HR Metoprolol Tartrate (loprESSOR) 25 mg BID PO 11/06/24 21:00 12/06/24 20:59 11/10/24 08:15 25 MG Metoprolol Tartrate (loprESSOR) 25 mg Q24H PO 11/04/24 13:30 11/06/24 15:22 DC 11/06/24 13:33 25 MG Metronidazole/ Sodium Chloride 100 ml @ 100 mls/hr Q8H IVPB 11/06/24 17:00 11/14/24 20:59 11/10/24 08:15 100 MLS/HR Metronidazole/ Sodium Chloride 100 ml @ 100 mls/hr TID IVPB 11/04/24 21:00 11/06/24 13:04 DC 11/06/24 08:21 100 MLS/HR Morphine Sulfate (morPHINE 2MG SYG) 2 mg Q6H PRN IVP SEVERE PAIN (7-10) 11/04/24 13:30 11/09/24 16:29 DC 11/09/24 04:07 2 MG Ondansetron HCl (zoFRAN 4MG INJ) 4 mg Q6H PRN IVP NAUSEA/VOMITING 11/04/24 13:30 12/04/24 13:29 Pioglitazone HCl (Actos 15mg) 15 mg DAILY PO 11/05/24 09:00 12/05/24 08:59 11/10/24 08:15 15 MG Potassium Chloride 100 ml @ 100 mls/hr AD PRN IV POTASSIUM PROTOCOL 11/05/24 12:30 12/05/24 12:29 11/09/24 05:53 100 MLS/HR Potassium Chloride (K-Dur/Klor-Con 20meq) 20 meq AD PRN PO POTASSIUM PROTOCOL 11/05/24 12:30 12/05/24 12:29 11/09/24 17:59 20 MEQ Potassium Chloride (KCl 10% Elixir 20meq/15ml) 20 meq AD PRN PO POTASSIUM PROTOCOL 11/05/24 12:30 12/05/24 12:29 Sodium Chloride 1,000 ml @ 50 mls/hr Q20H IV 11/04/24 13:30 12/04/24 13:29 11/07/24 21:36 50 MLS/HR Sodium Chloride 1,000 ml @ 150 mls/hr Q6H40M IV 11/08/24 14:30 11/08/24 18:29 DC 11/08/24 15:22 150 MLS/HR Vancomycin HCl 250 ml @ 125 mls/hr Q12H IV 11/05/24 03:00 11/08/24 15:52 DC 11/08/24 03:22 125 MLS/HR Vancomycin HCl 250 ml @ 125 mls/hr Q12H IV 11/08/24 16:00 11/18/24 15:59 11/10/24 04:55 125 MLS/HR Vancomycin HCl (Vancomycin Protocol) 1 each AD IV 11/04/24 13:30 11/18/24 13:29 Vitamin B Complex (Vitamin B-12) 1,000 mcg DAILY PO 11/05/24 09:00 12/05/24 08:59 11/10/24 08:15 1,000 MCG DIAGNOSTICS / RADIOLOGY: [ ] ASSESSMENT: Nonhealing diabetic foot wound involving the lateral aspect of the right foot TMA site with MRI negative for osteomyelitis, POA History of severe peripheral arterial disease involving the right lower extremity with prior history of femoral to popliteal artery bypass surgery on 08/10/2021, POA History of left lower extremity peripheral arterial disease, POA Underlying history of right foot transmetatarsal amputation in 2021, POA Hypokalemia Hypomagnesemia History of type 2 diabetes mellitus, POA Hypertension, POA Hyperlipidemia, POA Obesity, POA History of coronary artery disease with prior history of coronary artery bypass grafting in 2015, POA H/o tobacco abuse POA Carotid artery disease, 50-69% OCHOA and LICA, August 2023 PLAN: The patient remains admitted on the medical surgical floor under telemetry monitoring. Nonhealing diabetic foot wound involving the lateral aspect of the right foot TMA site with MRI negative for osteomyelitis, POA Underlying history of right foot transmetatarsal amputation in 2021, POA * Continue on broad-spectrum antibiotics with vancomycin/cefepime/Flagyl * Continue with 0.9%Nacl 50 cc/hour today and reevaluate tomorrow. * Follow up wound cultures obtained from [facility]. His recommendations are to continue IV antibiotic therapy and provide local wound care. * Wound cultures were not collected during this hospitalization and were deferred per Dr. Henriquez recommendation since there is no drainage and the wound is scabbing over. * Blood culture showed no growth after 5 days. * PICC line has been replaced yesterday since it was leaking, given the negative MRI for osteomyelitis, we will follow Infectious Diseases recommendations regarding whether to continue IV antibiotics or transition to oral therapy after discharge, tailored to culture results and clinical response. History of severe peripheral arterial disease involving the right lower extremity with prior history of femoral to popliteal artery bypass surgery on 08/10/2021, POA History of left lower extremity peripheral arterial disease, POA * Peripheral angiogram (11/08/24) showed that catheter-based intervention would not be beneficial; however, a fem-fem or fem-popliteal bypass may be a viable option due to calcified and small-diameter common femoral and popliteal arteries. Vascular surgery consult with Dr. Rodriguez was placed, and further recommendations are awaited * Arterial US (11/04/24) showed no flow in proximal and distal portion of right femoral artery, occlusion of right femoral posterior tibial artery bypass graft. CT Angio aorta with peripheral runoff (11/04/24) showed multiple short segment high-grade stenosis in right iliac artery with flow discontinuity, patent right posterior tibial artery, left anterior tibial and left renal artery. Occlusion of right anterior tibial and right peroneal artery and left posterior tibial artery. * Continue with the following: aspirin 81 mg daily, and Plavix 75 mg daily. Hypokalemia * AM labs showed K level of 3.0. * Replace as needed per protocol * Repeat at 1700 today Hypomagnesemia * Recent MG is 1.7 * Replace per protocol as needed History of type 2 diabetes mellitus, POA * Recent blood glucose level is 143, Continue on sliding scale insulin a.c. and HS, and Lantus 10 units bedtime * Continue with home dose of Actos * Hypoglycemia protocol Hypertension, POA * Recent blood pressure readin/84. Due to persistent hypertension, Norvasc 5 mg was increased to 10 mg by the risk control director. The patient is now on Lisinopril 20 mg daily, Metoprolol 25 mg BID, and Norvasc 10 mg daily. * Closely monitor vitals, Q4 * Avoid PRN antihypertensives Hyperlipidemia, POA * Continue with Atorvastatin 40 mg daily. DVT Prophylaxis: Continue with Lovenox 30 mg subcue daily GI Prophylaxis: Continue with Famotidine 20 mg IV BID. AM Labs: CBC, BMP, Magnesium Discharge disposition: When ready for discharge, Possible to [facility], we have requested assistance with case management for authorization. Further orders per hospitalization course. CESAR SPAULDING MD Nov 10, 2024 10:33
[2024-11-10 12:00] VITALS: BP 158/77; PULSE 78; RESP 18; TEMP 99
--- NOTE | 2024-11-10 14:51 | PN ---
INFECTIOUS DISEASE PROGRESS NOTE Date of Service: Nov 10, 2024 SUBJECTIVE: This is a 64-year-old patient who was seen and examined at bedside in room 425. Patient is awake, alert and oriented x 3. Patient is s/p peripheral angiogram on 11/08 with abnormal findings. Per report patient was evaluated for fem-pop bypass however no plan for intervention at this time. No fever, temperature is 99.0. Currently continues on vancomycin, cefepime and metronidazole. From Infectious Disease standpoint patient is cleared for discharged on cephalexin and doxycycline x 10 days when ready to discharge. Prescription was written. PHYSICAL EXAM EYES: Anicteric. Pupils equal and reactive. HENT: No oral thrush seen, moist Oral mucosa. NECK: Supple, no JVD or thyromegaly. LUNGS: Good air entry. No rales, no rhonchi. CARDIOVASCULAR: S1, S2 regular. No murmur heard. ABDOMEN: Soft, non tender, bowel sounds present, no organomegaly. CENTRAL NERVOUS SYSTEM: Awake, alert, oriented x 3. SKIN: No rashes, no swelling. LYMPHATICS: No peripheral lymphadenopathy. MUSCULOSKELETAL: No joint swelling, erythema or tenderness. EXTREMITIES: No cyanosis or clubbing. Right foot TMA stump nonhealing ulcer. BACK: No deformity, no pressure ulcer. GENITOURINARY: No dysuria or hematuria. Vital Sign (Last 12 Hours) 11/10/24 11/10/24 11/10/24 04:00 08:00 12:00 Temp 98.1 99.1 99.0 Pulse 84 83 78 Resp 18 18 18 B/P (MAP) 141/71 137/97 158/77 Pulse Ox 97 98 96 O2 Delivery Room Air Room Air Room Air Intake & Output (last 24hrs) 11/09/24 11/09/24 11/10/24 15:00 23:00 07:00 Intake Total 1250 ml 240 ml Output Total 850 ml 800 ml 500 ml Balance 400 ml -560 ml -500 ml LABS: Laboratory: Test 11/10/24 11:05 11/10/24 04:55 11/08/24 15:24 Range/Units Whole Blood Glucose 118 H 70-110 MG/DL White Blood Count 5.9 4.8-10.8 K/uL Red Blood Count 4.71 4.50-6.20 MIL/uL Hemoglobin 13.4 L 14.0-18.0 g/dL Hematocrit 40.6 L 42-54 % Mean Corpuscular Volume 86.2 79-99 fL Mean Corpuscular Hemoglobin 28.5 27.0-33.0 pg Mean Corpuscular Hemoglobin Concent 33.0 32.0-36.0 g/dL Red Cell Distribution Width 14.7 11.0-15.5 % Platelet Count 229 130-400 K/uL Mean Platelet Volume 9.7 7.5-10.5 fL Immature Granulocyte % (Auto) 0.2 0-1 % Neutrophils (%) (Auto) 53.8 40.0-77.0 % Lymphocytes (%) (Auto) 22.2 21.0-51.0 % Monocytes (%) (Auto) 13.6 H 3.0-13.0 % Eosinophils (%) (Auto) 9.5 H 0.0-8.0 % Basophils (%) (Auto) 0.7 0.0-5.0 % Neutrophils # (Auto) 3.2 1.8-7.7 K/uL Lymphocytes # (Auto) 1.3 1.0-4.8 K/uL Monocytes # (Auto) 0.8 0.1-1.0 K/uL Eosinophils # (Auto) 0.56 0.00-0.70 K/uL Basophils # (Auto) 0.04 0.00-0.20 K/uL Absolute Immature Granulocyte (auto 0.01 0-1 K/uL Nucleated Red Blood Cells 0.0 0.0-0.19 % Sodium Level 140 136-145 mmol/L Potassium Level 4.0 3.5-5.1 mmol/L Chloride Level 107 101-111 mmol/L Carbon Dioxide Level 26 21-32 mmol/L Blood Urea Nitrogen 12 7-18 mg/dL Creatinine 0.7 0.5-1.3 mg/dL Glomerular Filtration Rate Calc 102 >90 mL/min Random Glucose 128 H 70-105 mg/dL Total Calcium 8.6 8.5-10.1 mg/dL Magnesium Level 1.90 1.80-2.40 mg/dL Vancomycin Level Trough 12.8 10.0-20.0 UG/ML ASSESSMENT: Right foot TMA stump nonhealing ulcer. Peripheral vascular disease, status post peripheral angiogram with abnormal findings. Coronary artery disease. Diabetes mellitus. Hypokalemia PLAN: Continue vancomycin per pharmacy protocol. Continue cefepime. Continue metronidazole. Continue antidiabetics. Continue antiplatelets. From Infectious Disease standpoint patient is cleared to be discharged on cephalexin and doxycycline x 10 days when ready to discharge. Prescription was written. This case was reviewed and discussed with my supervising physician and the above assessment and plan was formulated and agreed upon. ATTESTATION BY PHYSICIAN I have seen and examined the patient. I reviewed the documentation, medical decision making, and treatment plan as noted by the mid-level provider above. I agree with the findings and plan of care. BILLY WEBER MD, [facility] Nov 10, 2024 14:51
[2024-11-10 16:00] VITALS: BP 150/74; PULSE 75; RESP 18; TEMP 98
[2024-11-10] MEDS ORDERED: ASPI-1197 PO (16:42)
[2024-11-10] MEDS ORDERED: AMLO-257 PO (16:42)
--- NOTE | 2024-11-10 16:55 | DS ---
Discharge Summary Hospital Course Summary: The patient is a 64-year-old male with a medical history significant for type 2 diabetes mellitus, peripheral vascular disease, coronary artery disease, CABG in 2016, hyperlipidemia, and obesity, with prior right transmetatarsal amputation presented to the emergency department on November 04 with complaints of a painful, non-healing diabetic foot ulcer over the lateral aspect of the amputation site, ongoing for the past 710 days. He also reported associated pain and mild drainage from the site. Initial evaluation revealed a blood pressure of 188/75 mmHg; the remainder of his vital signs were unremarkable. He was started on empiric broad-spectrum antibiotics and admitted for further evaluation and management, with concern for underlying osteomyelitis. During hospitalization, multiple imaging studies were obtained. Initial MRI of the right foot was interpreted as concerning for osteomyelitis, and antibiotics were escalated to include vancomycin, cefepime, and metronidazole. However, a subsequent radiology addendum two days later clarified that there was no definitive evidence of osteomyelitis. Arterial duplex ultrasound of the right lower extremity demonstrated no flow in both the proximal and distal segments of the superficial femoral artery, consistent with occlusion, as well as occlusion of the previously placed femoral-posterior tibial bypass graft. Abnormal arterial waveforms were noted throughout the right lower extremity including the common femoral, deep femoral, superficial femoral, popliteal, posterior tibial, and dorsalis pedis arteries. Further evaluation with CT angio abdominal aorta with runoff revealed multiple short-segment high-grade stenoses in the right iliac artery, as well as occlusions of the right anterior tibial, right peroneal, and left posterior tibial arteries. Peripheral angiogram was performed on 11/[address] Walls. Findings indicated that catheter-based intervention would not be beneficial. Surgical options, inc luding femoral-femoral or femoral-popliteal bypass, were considered. Cardiovascular surgery was consulted, and after evaluation by Dr. Reeves, it was recommended that no surgical intervention be pursued at this time. The patient remained clinically stable during his admission. Daily laboratory tests were monitored and electrolyte abnormalities were addressed per hospital protocol. His systolic blood pressures consistently ranged in the 160s, and his antihypertensive regimen was adjusted accordingly. Given the lack of evidence for osteomyelitis on final imaging and no indication for surgical intervention, the patient is deemed medically stable for discharge. He will continue dual antiplatelet therapy with aspirin and clopidogrel, along with atorvastatin 40 mg, for peripheral vascular disease and secondary prevention of cardiovascular events. Infectious Disease recommended completion of an oral antibiotic course with cephalexin and doxycycline. He will follow up in the outpatient setting for ongoing management. Sliver Chopper(s): Dr. Willian Padron, Systems Integration Manager Dr. Raciel Gee, Ward Attendant Dr. Santos Walls, Ward Attendant Dr. Efrain Rodriguez, Infectious disease Procedure(s): [facility] [address] [address] IMAGING REPORT Signed PATIENT: ENMANUEL TURNER MR#: [id number] : 1960 SEX: M AGE: 64 LOCATION: 4DH ORDER 1224 STATUS: ADM IN [facility] REPORT#: [id number] SERVICE 120 REASON: ISCHEMIC INFECTED RIGHT LATERAL TMA AMPUTATION STUMP ULCER ORDERING PHYSICIAN: WILLIAN PADRON DPM PROCEDURE: CXR1VW - CHEST 1VW CHEST 1VW HISTORY: Infection of the amputation stump COMPARISON: None FINDINGS: A frontal projection of the chest was obtained. No acute pulmonary infiltrates is seen. Poststernotomy changes are seen. The heart is enlarged. Degenerative changes of the thoracolumbar spine are present. All the lines and tubes are again seen in place. No evidence of aortic calcification is seen. IMPRESSION: 1. No acute pulmonary infiltrate is seen. DICTATED BY: AMANDA TUBBS MD DATE: 11/04/24 145 ELECTRONICALLY SIGNED BY: AMANDA TUBBS MD DATE: 11/09/24 [address] [place] [id number] [address] IMAGING REPORT Signed PATIENT: ENMANUEL TURNER MR#: [id number] : 1960 SEX: M AGE: 64 LOCATION: 4DH ORDER 1224 STATUS: ADM IN REPORT#: [id number] SERVICE 120 REASON: ISCHEMIC INFECTED RIGHT LATERAL TMA AMPUTATION STUMP ULCER ORDERING PHYSICIAN: WILLIAN PADRON DPM PROCEDURE: FT RT WO - MR FOOT RIGHT WO ADDENDUM REPORT MR FOOT RIGHT WO HISTORY: Ischemic infected right lateral TMA amputation stump ulcer COMPARISON: None TECHNIQUE: MRI of the right foot was performed utilizing multiple pulse sequences in axial, coronal and sagittal planes. Patient was not given contrast through intravenous route. FINDINGS: Transmetatarsal amputations of all the toes are noted. No abnormal signal intensity is seen to suggest osteomyelitis. There are motion artifacts degrading the image quality. Degenerative changes are seen. IMPRESSION: 1. No abnormal increased signal intensity is seen specifically of the metatarsals stumps to suggest osteomyelitis. DICTATED BY: AMANDA TUBBS MD DATE: 11/06/24 1626 ELECTRONICALLY SIGNED BY: AMANDA TUBBS MD DATE: 11/09/24 [address] [place] [address] [address] IMAGING REPORT Signed PATIENT: ENMANUEL TURNER MR#: [id number] : 1960 SEX: M AGE: 64 LOCATION: 4DH ORDER 1224 STATUS: ADM IN REPORT#: [id number] SERVICE 1203 REASON: ISCHEMIC INFECTED RIGHT LATERAL TMA AMPUTATION STUMP ULCER ORDERING PHYSICIAN: WILLIAN PADRON DPM PROCEDURE: FT 3VW RT - FOOT COMP 3+VWS RT FOOT COMP 3+VWS RT HISTORY: Foot COMPARISON: None TECHNIQUE: 3 images of the right foot were obtained. FINDINGS: Transmetatarsal amputation of the toes are noted. Evaluation for osteomyelitis is limited with radiographs. There is a calcaneal spur. There is no acute displaced fracture or dislocation. Degenerative changes are seen. IMPRESSION: 1. Findings as described above. DICTATED BY: AMANDA TUBBS MD DATE: 11/04/24 1335 ELECTRONICALLY SIGNED BY: AMANDA TUBBS MD DATE: 11/09/24 [address] [place] [id number] [address] IMAGING REPORT Signed PATIENT: ENMANUEL TURNER MR#: [id number] : 1960 SEX: M AGE: 64 LOCATION: 4DH ORDER 1317 STATUS: ADM IN REPORT#: [id number] SERVICE 1310 REASON: non resolving wound of RLE, hx of prior bypass, hx of stent to LLE ORDERING PHYSICIAN: KRISTIAN CHURCH MD PROCEDURE: ART B LE - US ARTERIAL BILAT LOW EXT DUPL US ARTERIAL BILAT LOW EXT DUPL HISTORY: Nonresolving wound of right lower extremity COMPARISON: 09/11/2021 TECHNIQUE: Bilateral lower extremity arterial Doppler ultrasound study was performed. FINDINGS: No flow is seen in the proximal and distal portions of the right superficial femoral artery suggesting occlusion. There is occlusion of the right femoral posterior tibial artery bypass graft. Abnormal monophasic arterial waveforms are positive for noted in the common femoral, deep femoral, superficial femoral, popliteal, posterior tibial and dorsalis pedal arteries. On the right, the peak systolic velocity of the common femoral artery is 63 cm/s, the proximal femoral artery is 0 cm/s, the mid femoral artery is 63 cm/s, the distal femoral artery is 0 cm/s, the proximal popliteal artery is 75 cm/s, the distal popliteal artery is 63 cm/s, the anterior tibial artery is 9 cm/s, the posterior tibial artery artery is 24 cm/s,and the dorsalis pedal artery is 11 cm/s. On the left, the peak systolic velocity of the common femoral artery is 156 cm/s, the proximal femoral artery is 119 cm/s, the mid femoral artery is 170 cm/s, the distal femoral artery is 15 cm/s, the proximal popliteal artery is 15 cm/s, the distal popliteal artery is 23 cm/s, the anterior tibial artery is 50 cm/s, the posterior tibial artery artery is 27 cm/s,and the dorsalis pedal artery is 46 cm/s. IMPRESSION: 1. Atherosclerotic disease. 2. No flow is seen in the proximal and distal portions of the right superficial femoral artery suggesting occlusion. There is occlusion of the right femoral posterior tibial artery bypass graft. Abnormal monophasic arterial waveforms are positive for noted in the common femoral, deep femoral, superficial femoral, popliteal, posterior tibial and dorsalis pedal arteries. 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 Patient was not given contrast through intravenous route. Oral contrast was not given. FINDINGS: No pleural effusion is seen bilaterally. There is no evidence of parenchymal disease or pulmonary nodule of the visualized lower lungs. Degenerative changes of the thoracolumbar spine are present. The heart is not enlarged. The liver, spleen, adrenal glands and pancreas are unremarkable. There is no evidence of hydronephrosis bilaterally. No evidence of renal stone is seen. Fecal material is seen in the colon. There are normal size retroperitoneal and mesenteric lymph nodes. No ascites is seen. Atherosclerotic changes are present. There is diffuse atherosclerotic disease. No evidence of abdominal aortic aneurysm is seen. The celiac, superior mesenteric and bilateral renal arteries are grossly patent. The visualized portion of the left iliac and femoral arterial systems are also grossly patent. Multiple short segment high-grade stenosis are noted in the right iliac artery with flow discontinuity. Flow in the right femoral posterior tibial stent cannot be fully evaluated. However, right posterior tibial artery is patent. The left anterior tibial, left renal arteries are grossly patent. There appears be occlusion of the right anterior tibial and right peroneal artery and left posterior tibial artery. Pelvic sidewalls are symmetric bilaterally. Bladder is well distended without wall thickening. IMPRESSION: 1. Multiple short segment high-grade stenosis are noted in the right iliac artery with flow discontinuity. Flow in the right femoral posterior tibial stent cannot be fully evaluated. However, right posterior tibial artery is patent. The left anterior tibial, left renal arteries are grossly patent. There appears be occlusion of the right anterior tibial and right peroneal artery and left posterior tibial artery. CT was performed with one or more following dose reduction techniques: automated exposure control, adjustment of the mA and kv according to patient's size, or use of a iterative reconstruction technique. DICTATED BY: AMANDA TUBBS MD DATE: 11/05/241530 ELECTRONICALLY SIGNED BY: AMANDA TUBBS MD DATE: 11/09/24 [address] [place] [id number] [place] [id number] IMAGING REPORT Signed PATIENT: ENMANUEL TURNER MR#: [id number] : 1960 SEX: M AGE: 64 LOCATION: [facility] ORDER 23 STATUS: ADM IN REPORT#: [id number] SERVICE 22 REASON: PICC line placement ORDERING PHYSICIAN: EFRAIN WEBER MD PROCEDURE: CXR1VW - CHEST 1VW EXAM: CR Chest, 1 view CLINICAL HISTORY: PICC line placement. COMPARISON: Chest radiograph dated 11/04/2024. FINDINGS: The right side PICC line tip overlies the mid SVC. The lungs show no infiltrates or other acute findings. No pleural effusion or pneumothorax. The cardiomediastinal silhouette is within normal limits. Status poststernotomy. Mild atherosclerotic aorta. No acute osseous abnormality. IMPRESSION: No acute cardiopulmonary process is evident. Interval placement of a right sided PICC line that terminates around the mid SVC. /[place] DICTATED BY: THADDEUS TUBBS Jr., MD DATE: 11/06/24300 ELECTRONICALLY SIGNED BY: THADEDUS TUBBS Jr., MD DATE: 11/06/24300 [facility] [address] [place] [id number] IMAGING REPORT Signed PATIENT: ENMANUEL TURNER MR#: [id number] : 1960 SEX: M AGE: 64 LOCATION: [facility] ORDER STATUS: ADM IN REPORT#: [id number] SERVICE 1215 REASON: H/O CABG ORDERING PHYSICIAN: FELIPE HERNANDEZ NP PROCEDURE: ECHO [facility] - ECHO 2-D COMPLETE APPROVED REPORT EXAM: Two-dimensional and M-mode echocardiogram with Doppler and color Doppler. INDICATION ICD: h/o cabg 2D Dimensions RVDd 3.5 cm LVEF(%) 42.7 (>50%) LVED Vol(simp.) 72.0 mL IVSd 1.1 (0.7-1.1cm) FS(%) 20 % LVES Vol(simp.) 41.0 mL LVDd 3.5 (3.8-5.6cm) LA (2D) 2.9 (1.6-4.0cm) LVEF(%, simp.) 43 % PWd 1.0 (0.7-1.1cm) Ao Root(2D) 3.2 (2.0-3.7cm) LA ESV INDEX (BP) 25.37 mL/m2 LVDs 2.8 (2.5-4.0cm) LVOT diam 1.9 (1.8-2.4cm) IVC diam 1.5 cm Deformation Strain Apical 4 -15.4 % Apical 2 -13.9 % Apical 3 -14.4 % Global Strain -14.6 % M-Mode Dimensions EPSS 0.5 cm LA (MM) 4.1 (1.6-4.0cm) Ao Root(MM) 3.0 (2.0-3.7cm) Aortic Valve AoV Vmax 1.2 m/s Ao Peak GR 6.2 mmHg LVOT Vmax 0.9 m/s AoV VTI 0.3 m Ao Mean GR 3.8 mmHg LVOT VTI 0.20 m JASPER (VMAX) 2.12 cm2 JASPER (VTI) 2.2 cm2 Mitral Valve MV E Vmax 84.0 cm/s DECEL Time 204 ms MV A Vmax 105.5 cm/s P 1/2 T 69 ms E/A ratio 0.8 MVA (PHT) 3.2 cm2 TDI E/E' Medial 15.5 E/E' Lateral 13.0 Medial E' Peak V 5.42 cm/s Lateral E' Peak V 6.48 cm/s Left Ventricle The left ventricle is normal size. Global strain of -15%. There is normal left ventricular wall thickness. Sigmoid septum is present. LVEF is 50-55%. Indeterminate diastolic dysfunction. Right Ventricle The right ventricle is normal size. Right ventricular systolic function is mildly reduced. Atria The left atrium size is normal. The right atrium size is normal. Aortic Valve Aortic valve is trileaflet. The aortic valve is mildly thickened but opens well. No aortic regurgitation is present. There is no aortic valvular stenosis. Mitral Valve The mitral valve is normal in structure. There is no mitral valve regurgitation noted. There is no mitral valve stenosis. Tricuspid Valve The tricuspid valve is normal in structure. There is no tricuspid valve regurgitation noted. Pulmonic Valve Pulmonic valve is not well visualized. There is no pulmonic valvular regurgitation. Great Vessels The aortic root is normal in size. The IVC is normal in size and collapses >50% with inspiration. Pericardium There is no pericardial effusion. Conclusion There is normal left ventricular wall thickness. Sigmoid septum is present. Global strain of -15%. DICTATED BY: RACIEL GEE MD DATE: 11/06/24 1328 ELECTRONICALLY SIGNED BY: RACIEL GEE MD DATE: 11/06/24 1610 [place] [address] IMAGING REPORT Signed PATIENT: ENMANUEL TURNER MR#: [id number] : 1960 SEX: M AGE: 64 LOCATION: 4DH ORDER 25 STATUS: ADM IN REPORT#: [id number] SERVICE 23 REASON: PICC LINE INSERTION ORDERING PHYSICIAN: EFRAIN WEBER MD PROCEDURE: CXR1VW - CHEST 1VW EXAM: CR Chest, 2 View. CLINICAL HISTORY: PICC LINE INSERTION COMPARISON: Radiograph dated November 05, 2024 FINDINGS: Right PICC terminates at the distal SVC. LUNGS: There is no mass, infiltrate, or acute pulmonary abnormality. PLEURAL SPACES: No pleural effusion or pneumothorax. MEDIASTINUM: Prior sternotomy. The cardiomediastinal silhouette is within normal limits. BONES: No acute osseous abnormality. IMPRESSION: 1. No acute findings. 2. Right PICC line terminates appropriately in distal SVC. /[place] DICTATED BY: THADDEUS TUBBS Jr., MD DATE: 11/08/241926 ELECTRONICALLY SIGNED BY: THADDEUS TUBBS Jr., MD DATE: 11/08/241926 RUN DATE: 11/09/24 [facility] [address] RUN TIME: [id number] [place] [address] Department of Laboratories CLIA # [id number] Bias Cutting Machine Operator: Rafy Ayala DO Specimen Report PATIENT: ENMANUEL TURNER ACCT: [id number] LOC: [facility] U: [id number] AGE/SX: 64/M ROOM: [facility] RE11/04/[address]: KRISTIAN CHURCH MD : 1960 BED: 1 DIS: STATUS: ADM IN TLOC: SPEC: [id number] ZAYDA: 11/04/24-1315 STATUS: COMP REQ: [id number] RECD: 11/04/24 [facility] DR: KRISTIAN CHURCH MD SOURCE: BLOOD ENTR: 11/04/24-[address]: EFRAIN WEBER MD [facility] WILLIAN PADRON DPM ROXANNE RIVERO MD, FRANCISCO ORDERED: BLOOD CULTURE COMMENTS: What is the Source? BLOOD Procedure Result Awa Date-Time BLOOD CULT Final 11/09/24-1323 NO GROWTH AFTER 5 DAYS Assessment/Plan: ASSESSMENT: Nonhealing diabetic foot wound involving the lateral aspect of the right foot TMA site with MRI negative for osteomyelitis, POA History of severe peripheral arterial disease involving the right lower extremity with prior history of femoral to popliteal artery bypass surgery on 08/10/2021, POA History of left lower extremity peripheral arterial disease, POA Underlying history of right foot transmetatarsal amputation in 2021, POA Hypokalemia, resolved Hypomagnesemia, resolved History of type 2 diabetes mellitus, POA Hypertension, POA Hyperlipidemia, POA Obesity, POA History of coronary artery disease with prior history of coronary artery bypass grafting in 2016, POA H/o tobacco abuse POA Carotid artery disease, 50-69% OCHOA and LICA, August 2023 Admission date: 11/04/2024 Discharge date: 11/10/2024 Disposition: Home Condition: Stable Home medications: continued Discharge medications: Start taking amlodipine 5 mg daily. Start taking lisinopril 10 mg daily. Starts taking aspirin 81 mg daily. Closely monitor the blood pressure, the patient was educated if SBP drops below 100, hold on amlodipine 5 mg. Start taking oral antibiotics cephalexin and doxycycline as directed. A written prescription was given. We reinforced the importance of medication compliance and follow up appointments with the patient Home Medications: Active Scripts Amlodipine Besylate (Amlodipine Besylate) 5 Mg Tablet, 1 TAB PO DAILY for 7 Days, #7 TAB 0 Refills Prov:CESAR SPAULDING MD 11/10/24 Aspirin (Aspirin) 81 Mg Tab.chew, 1 TAB PO DAILY for 30 Days, #30 TAB 0 Refills Prov:CESAR SPAULDING MD 11/10/24 Reported Medications Cyanocobalamin (Vitamin B-12) (Vitamin B-12) 1,000 Mcg Capsule, 1 CAP PO DAILY for 30 Days, #30 CAP 0 Refills 11/04/24 [Vitamin] No Conflict Check, 5000 UNITS PO DAILY 11/04/24 Cilostazol (Cilostazol) 100 Mg Tablet, 1 TAB PO DAILY for 30 Days, #60 TAB 0 Refills 11/04/24 Clopidogrel Bisulfate (Clopidogrel) 75 Mg Tablet, 1 TAB PO DAILY for 30 Days, #30 TAB 0 Refills 11/04/24 Atorvastatin Calcium (LIPITOR) 40 Mg Tablet, 1 TAB PO HS for 30 Days, #30 TAB 0 Refills 11/04/24 Insulin Glargine,Hum.rec.anlog (Basaglar Kwikpen U-100) 100 Unit/Ml (3 Ml) Insuln.pen, 10 UNIT SQ HS, SYRINGE 11/04/24 Gabapentin (Gabapentin) 600 Mg Tablet, 1 TAB PO TID for 30 Days, #90 TAB 0 Refills 11/04/24 Metoprolol Tartrate (Metoprolol Tartrate) 25 Mg Tablet, 1 TAB PO DAILY for 30 Days, #60 TAB 0 Refills 11/04/24 Lisinopril (Lisinopril) 5 Mg Tablet, 1 TAB PO DAILY for 30 Days, #30 TAB 0 Refills 11/04/24 Pioglitazone HCl (Pioglitazone HCl) 15 Mg Tablet, 1 TAB PO DAILY for 30 Days, #30 TAB 0 Refills 11/04/24 Metformin HCl (Metformin HCl) 1,000 Mg Tablet, 1 TAB PO BID for 30 Days, #60 TAB 0 Refills 11/04/24 Dapagliflozin Propanediol (Farxiga) 10 Mg Tablet, 1 TAB PO DAILY for 30 Days, #30 TAB 0 Refills 11/04/24 Semaglutide (Ozempic) 1 Mg/0.75 Ml (4 Mg/3 Ml) Pen.injctr, 1 MG SQ QWEEK for 30 Days, #3 ML 0 Refills 11/04/24 Discontinued Reported Medications Turm/Ging/Azeem/Yuc/Matt/Lj/Hor (Tumersaid Tablet) 1 Each Tablet, 1 EACH PO DAILY, TAB 09/11/21 Cyanocobalamin (Vitamin B-12) (Vitamin B12) 2,500 Mcg Tab.chew, 1000 MCG PO DAILY, TAB.CHEW 09/11/21 Insulin Glargine,Hum.rec.anlog (Basaglar Kwikpen U-100) 100 Unit/1 Ml Insuln.pen, 10 UNIT SQ HS, SYRINGE 09/11/21 Metoprolol Tartrate (Metoprolol Tartrate) 25 Mg Tablet, 25 MG PO DAILY, TAB 09/11/21 Dapagliflozin Propanediol (Farxiga) 10 Mg Tablet, 10 MG PO DAILY, TAB 09/11/21 Cilostazol (Cilostazol) 100 Mg Tablet, 100 MG PO BID, TAB 08/06/21 Insulin Glargine,Hum.rec.anlog (Basaglar Kwikpen U-100) 100 Unit/1 Ml Insuln.pen, 10 UNIT SQ HS, SYRINGE 08/06/21 Clopidogrel Bisulfate (Clopidogrel) 75 Mg Tablet, 75 MG PO DAILY, TAB 08/06/21 Metformin HCl (Metformin HCl) 1,000 Mg Tablet, 1000 MG PO BID, TAB 08/06/21 Atorvastatin Calcium (Atorvastatin Calcium) 40 Mg Tablet, 40 MG PO HS, TAB 08/03/21 Pioglitazone HCl (Pioglitazone HCl) 15 Mg Tablet, 15 MG PO DAILY, TAB 08/03/21 Icosapent Ethyl (Vascepa) 1 Gm Capsule, 1 GM PO DAILY, CAP 08/03/21 Lisinopril (Lisinopril) 5 Mg Tablet, 5 MG PO DAILY, TAB 08/03/21 Gabapentin (Gabapentin) 100 Mg Capsule, 600 MG PO TID, CAP 08/03/21 Semaglutide (Ozempic) 1 Mg/0.75 Ml Pen.injctr, 2.5 MG SQ SAT 08/03/21 New Medications: Amlodipine Besylate (Amlodipine Besylate) 5 Mg Tablet 1 TAB PO DAILY for 7 Days, #7 TAB 0 Refills Aspirin (Aspirin) 81 Mg Tab.chew 1 TAB PO DAILY for 30 Days, #30 TAB 0 Refills Continued Medications: Atorvastatin Calcium (Lipitor) 40 Mg Tablet 1 TAB PO HS for 30 Days, #30 TAB 0 Refills Cilostazol (Cilostazol) 100 Mg Tablet 1 TAB PO DAILY for 30 Days, #60 TAB 0 Refills Clopidogrel Bisulfate (Clopidogrel) 75 Mg Tablet 1 TAB PO DAILY for 30 Days, #30 TAB 0 Refills Cyanocobalamin (Vitamin B-12) (Vitamin B-12) 1,000 Mcg Capsule 1 CAP PO DAILY for 30 Days, #30 CAP 0 Refills Dapagliflozin Propanediol (Farxiga) 10 Mg Tablet 1 TAB PO DAILY for 30 Days, #30 TAB 0 Refills Gabapentin (Gabapentin) 600 Mg Tablet 1 TAB PO TID for 30 Days, #90 TAB 0 Refills Insulin Glargine,Hum.rec.anlog (Basaglar Kwikpen U-100) 100 Unit/Ml (3 Ml) Insuln.pen 10 UNIT SQ HS, SYRINGE Lisinopril (Lisinopril) 5 Mg Tablet 1 TAB PO DAILY for 30 Days, #30 TAB 0 Refills Metformin HCl (Metformin HCl) 1,000 Mg Tablet 1 TAB PO BID for 30 Days, #60 TAB 0 Refills Metoprolol Tartrate (Metoprolol Tartrate) 25 Mg Tablet 1 TAB PO DAILY for 30 Days, #60 TAB 0 Refills Pioglitazone HCl (Pioglitazone HCl) 15 Mg Tablet 1 TAB PO DAILY for 30 Days, #30 TAB 0 Refills Semaglutide (Ozempic) 1 Mg/0.75 Ml (4 Mg/3 Ml) Pen.injctr 1 MG SQ QWEEK for 30 Days, #3 ML 0 Refills [Vitamin] () 5000 UNITS PO DAILY Time spent arranging discharge: 31-60 minutes ATTESTATION BY PHYSICIAN I have seen and examined the patient. I reviewed the documentation, medical decision making, and treatment plan as noted by the resident provider above. I agree with the findings and plan of care. Amadou Cruz MD, MANALI MD Nov 10, 2024 16:55
--- NOTE | 2024-11-10 18:42 | NUR ---
PATIENT DISCHARGED HOME ID BAND,IV AND TELE DINA REMOVED. DISCHARGE INSTRUCTIONS EXPLAINED AND GIVEN TO PATIENT. MEDICINE SCRIPT GIVEN TO PATIENT. PATIENT VERBALIZED UNDERSTANDING. BELONGINGS PACKED AND TAKEN BY PATIENT. WHEELED DOWN TO PRIVATE CAR.
== END 2024-11-10 18:55 | disposition home or self-care (01) | DRG 565 ==
LOC: EDH 11:52 → EDHIP 11:53 → 4DH 17:55
PROVIDERS: ADMIT Internal Medicine; ATTEND Internal Medicine
PROC: 02HV33Z Insertion of Infusion Device into Superior Vena Cava, Percutaneous Approach (ICD-10-PCS; principal; 2024-11-05)
PROC: 02HV33Z Insertion of Infusion Device into Superior Vena Cava, Percutaneous Approach (ICD-10-PCS; 2024-11-08)
PROC: B4101ZZ Fluoroscopy of Abdominal Aorta using Low Osmolar Contrast (ICD-10-PCS; 2024-11-08)
PROC: B41G1ZZ Fluoroscopy of Left Lower Extremity Arteries using Low Osmolar Contrast (ICD-10-PCS; 2024-11-08)
PROC: B41F1ZZ Fluoroscopy of Right Lower Extremity Arteries using Low Osmolar Contrast (ICD-10-PCS; 2024-11-08)
PROC: B44GZZZ Ultrasonography of Left Lower Extremity Arteries (ICD-10-PCS; 2024-11-08)
DX: T87.89 Other complications of amputation stump (principal); E11.52 Type 2 diabetes mellitus with diabetic peripheral angiopathy with gangrene; E11.621 Type 2 diabetes mellitus with foot ulcer; E11.51 Type 2 diabetes mellitus with diabetic peripheral angiopathy without gangrene; E11.622 Type 2 diabetes mellitus with other skin ulcer; Y83.5 Amputation of limb(s) as the cause of abnormal reaction of the patient, or of later complication, without mention of misadventure at the time of the procedure; E11.69 Type 2 diabetes mellitus with other specified complication; E66.9 Obesity, unspecified; E78.5 Hyperlipidemia, unspecified; E83.42 Hypomagnesemia; E87.6 Hypokalemia; I10 Essential (primary) hypertension; I25.10 Atherosclerotic heart disease of native coronary artery without angina pectoris; I87.2 Venous insufficiency (chronic) (peripheral); L08.9 Local infection of the skin and subcutaneous tissue, unspecified; L97.519 Non-pressure chronic ulcer of other part of right foot with unspecified severity; Z79.4 Long term (current) use of insulin; Z79.82 Long term (current) use of aspirin; Z83.3 Family history of diabetes mellitus; Z89.431 Acquired absence of right foot; Z79.899 Other long term (current) drug therapy; I25.2 Old myocardial infarction; Z68.35 Body mass index [BMI] 35.0-35.9, adult; Z87.891 Personal history of nicotine dependence; Z95.1 Presence of aortocoronary bypass graft
CPT/HCPCS: 36246; 36415; 36569; 71045; 73630; 73718; 75635; 75716; 76376; 80048; 80053; 80202; 82948; 83605; 83615; 83735; 84132; 84145; 85025; 85610; 85651; 85730; 86140; 87040; 93005; 93306; 93356; 93925; 99156; 99157; C1894; G0378; J0360; J0692; J1644; J1650; J1815; J2250; J2270; J3010; J3370; J3475; J3480; J3490; J7030; Q9967; A4600; C1751; C1760; C1769